=== PATIENT | female | born 1950 | race Caucasian/White ===

== ENCOUNTER → 2017-05-10 | Outpatient (CLI) | payer MEDICARE, OTHER ==
--- NOTE | 2017-05-10 23:40 | CONS ---
DATE OF SERVICE: 05/10/2017 This patient is a 66-year-old lady who has been evaluated in the sleep center for possible obstructive sleep apnea/hypopnea syndrome. HISTORY OF PRESENT ILLNESS/SLEEP-WAKE EVALUATION: The patient is retired. She does not have a regular sleep schedule, but she tries to go to bed at around 10 or 11. She sleeps until 10 or 11 a.m. Sometimes she has problems falling asleep. No TV in bedroom, although she snores, has witnessed episodes of gasping for air during the night and possible stopped breathing during sleep. She wakes up with a dry mouth and has nocturia more than 3 times per night. She feels significant sleepiness during the day. [place] Sleepiness Scale significantly increased to 17. Past medical history is positive for: 1. Hypertension. 2. Fibromyalgia. 3. Diabetes mellitus. 4. Hypothyroidism. 5. Hyperlipidemia. 6. COPD. 7. Balance problems. 8. ( ) malformation. PAST SURGICAL HISTORY: 1. Hysterectomy. 2. Cholecystectomy. 3. Bowel resection. 4. Nasal surgery. MEDICATIONS: 1. Insulin. 2. Lyrica. 3. Albuterol. 4. Pulmicort. 5. Some other medications; patient does not remember and did not bring her list of medications. She will provide that list to us. SOCIAL HISTORY: Positive for smoking a long time; quit 30 years ago. Alcohol consumption very rarely. REVIEW OF SYSTEMS: No fevers. No double vision. No recent chest pain. No abdominal pain. No bleeding episodes. No blood in urine. No seizure episodes. Difficulties initiating sleep. Multiple awakenings from sleep. Sleepiness and tiredness during the day. Pain all over the body. Balance problems. Episodes of swelling of the legs. Episodes of shortness of breath. FAMILY HISTORY: Hypertension, angina, heart problems, hyperlipidemia, epilepsy, stroke, arthritis, asthma, sinus ( ) weakness, bronchitis, lung problems, sleep apnea, snoring, headaches, insomnia, diabetes, ulcers, acid reflux, nasal polyps, thyroid problems, anemia, restless legs. PHYSICAL EXAM: The patient is a pleasant 66-year-old lady without distress. She walks with a walker secondary to balance problems. VITAL SIGNS: Blood pressure 142/75, heart rate 78, respiratory rate 18. Height 61. Weight 232. BMI 43.8. Neck 13-1/2 inches in circumference. Temperature 98.1. Oxygen saturation at room air 94%. GENERAL: A pleasant patient without distress. HEENT: PERRLA. EOMI. Evaluation of oropharynx showed tongue protrudes midline. Extremely low position of soft palate. Mallampati IV. Extreme restriction of nasal breathing bilaterally. NECK: Supple. No JVD. Thyroid is not palpable. LUNGS: Clear to percussion and to auscultation. Good air exchange. No wheezing or rhonchi. HEART: S1, S2 regular. No murmurs, gallops or rubs. ABDOMEN: Obese. EXTREMITIES: No clubbing or cyanosis. TEMPERER: Awake, alert and oriented x3. Cranial nerves 2 through 7 are intact. There is no fasciculation or atrophy noted. No focal deficits observed. IMPRESSION: 1. Snoring, awakenings from sleep with gasping for air, extremely low position of soft palate, significant sleepiness, [place] Sleepiness Scale increased to 17 , obesity; obstructive sleep apnea/hypopnea syndrome. 2. Obesity. BMI 43.8. 3. Diabetes mellitus. 4. Fibromyalgia. 5. Hypertension. 6. Hypothyroidism. 7. Hyperlipidemia. 8. Chronic obstructive pulmonary disease. 9. Significant restriction of nasal breathing, status post nasal surgery. 10. Status post hysterectomy. 11. Status post cholecystectomy. 12. Status post bowel resection in teenage years. 13. Balance problems. 14. History of ( ) malformation. PLAN: 1. Polysomnography for evaluation of patients breathing during sleep. 2. CPAP/BiPAP titration if sleep study confirms obstructive sleep apnea/ hypopnea syndrome. 3. Preferable position during sleep on the side. 4. No driving if feeling any sleepiness. Patient is aware of civil and criminal liability for unsafe driving. 5. I will see this patient for follow-up visit to explain results of the testing and follow-up plan. Thank you very much for referring this patient for consultation. Sincerely, Jerry Quintana. , PhD, FAASM. Diplomat of [place] Board of Sleep Medicine, Sleep Medicine Board by [place] [employer]ities [place] [employer] Proof Clerk of [facility] [place] [facility]
== END ==
LOC: SLEEP 11:36
PROVIDERS: ATTEND Internal Medicine
DX: G47.33 Obstructive sleep apnea (adult) (pediatric) (principal); E11.9 Type 2 diabetes mellitus without complications; I10 Essential (primary) hypertension; E66.9 Obesity, unspecified; M79.1 Myalgia; E03.9 Hypothyroidism, unspecified; E78.5 Hyperlipidemia, unspecified; J44.9 Chronic obstructive pulmonary disease, unspecified; Z90.710 Acquired absence of both cervix and uterus; Z90.49 Acquired absence of other specified parts of digestive tract; Z98.890 Other specified postprocedural states; Z79.4 Long term (current) use of insulin; Z79.899 Other long term (current) drug therapy
CPT/HCPCS: 99211

== ENCOUNTER 2018-03-07 08:59 | Day surgery (SDC) | payer MEDICARE, OTHER ==
[2018-03-06 09:16] VITALS: BMI 41.0
[~2018-03-07 08:59] MED LIST: LACTATED RINGERS 1,000 ML IV SCH
[2018-03-07 09:40] VITALS: RESP 16; TEMP 97
[2018-03-07 09:52] LABS: Glucose,Whole Blood 172 mg/dL (75-99)
[2018-03-07] MEDS ORDERED: LIDOCAINE 1% 20 ML VIAL (10MG/ML) FOR IV START INTRADERMA ONE (09:52)
[2018-03-07] MEDS ORDERED: MIDAZOLAM 2 MG/2 ML VIAL ONE (10:05)
[2018-03-07] MEDS ORDERED: PROPOFOL 10 MG/ML 20 ML VIAL IV ONE (10:05)
[2018-03-07] MEDS ORDERED: fentaNYL (PF) 50 MCG/ML 2 ML AMP ONE (10:05)
--- NOTE | 2018-03-07 10:22 | P.PCN ---
Date of Procedure: 03/07/18 Procedure(s) Performed: BRIEF HISTORY: Patient is a 67-year-old pleasant white female, scheduled for an elective colonoscopy as a part of evaluation of abdominal pain and change in bowel habits for the last few months duration. PROCEDURE PERFORMED: Colonoscopy. PREOPERATIVE DIAGNOSIS: Abdominal pain/change in bowel habits. IV sedation per Anesthesia. PROCEDURE: After informed consent was obtained, the patient, was brought into the endoscopy unit. IV sedation was administered by Anesthesia under continuous monitoring. Digital rectal examination was normal. Initially the Olympus CF- 160 flexible video colonoscope was then inserted in the rectum, gradually advanced into the cecum without any difficulty. Careful examination was performed as the scope was gradually being withdrawn. Ileocecal valve and the appendiceal orifice were visualized and appeared normal. Prep was excellent. Mucosa of the cecum, ascending colon, transverse colon, descending colon, sigmoid colon, and rectum appeared normal. Scattered sigmoid diverticula seen. Retroflexion was performed in the rectum and small internal hemorrhoids were seen. The patient tolerated the procedure well. IMPRESSION: Normal-appearing colon from rectum to cecum with no evidence of colorectal neoplasia. Scattered sigmoid diverticulosis. RECOMMENDATIONS: Findings of this examination were discussed with the patient as well as a family. She was advised to have a repeat screening colonoscopy in 10 years.
[2018-03-07 10:56] LABS: Glucose,Whole Blood 145 mg/dL (75-99)
[2018-03-07 11:45] VITALS: BP 131/72; PULSE 73
[2018-03-07 11:46] LABS: Glucose,Whole Blood 160 mg/dL (75-99)
== END 2018-03-07 12:24 | disposition home or self-care (01) ==
LOC: ORWHC2ENDO 08:59
PROVIDERS: ATTEND Internal Medicine Gastroenterology
DX: K57.30 Diverticulosis of large intestine without perforation or abscess without bleeding (principal); K64.8 Other hemorrhoids; J44.9 Chronic obstructive pulmonary disease, unspecified; I10 Essential (primary) hypertension; E11.9 Type 2 diabetes mellitus without complications; Z79.4 Long term (current) use of insulin; Z79.899 Other long term (current) drug therapy; Z79.1 Long term (current) use of non-steroidal anti-inflammatories (NSAID); Z88.8 Allergy status to other drugs, medicaments and biological substances
CPT/HCPCS: 45378; J2250; J3010; J2704

== ENCOUNTER 2018-04-20 21:38 | Emergency (ER) | payer MEDICARE, OTHER ==
[2018-04-20 21:54] VITALS: BP 146/93; PULSE 76; RESP 18; TEMP 98.9
[2018-04-20] MEDS ORDERED: PROPARACAINE 0.5% OPHTH DROPS 15 ML BTL LEFT EYE STA (22:08)
[2018-04-20] MEDS ORDERED: PROPARACAINE 0.5% OPHTH DROPS 15 ML BTL ONE (22:09)
--- NOTE | 2018-04-20 22:16 | ED ---
General Adult HPI - General Chief complaint: Eye Problems Stated complaint: right eye pain Time Seen by Provider: 04/20/18 21:50 Source: patient, RN notes reviewed Mode of arrival: ambulatory Limitations: no limitations - History of Present Illness Initial comments: This is a 67-year-old female presents emergency Department complaining of blood around her pupil. Patient states it started this morning and she felt as though she needed to rub her eyes she continues to rub it but she doesn't have any pain in her eye she has no visual loss in her eye. Patient denies any drainage from the eye. Patient states she woke up and felt a slight foreign body sensation and noticed all the blood in the sub-conjunctiva region. Patient denies any other symptoms at this time she denies any upper respiratory symptoms. Patient denies being on any blood thinners. Patient denies any similar symptoms. - Related Data Home Medications Medication Instructions Recorded Confirmed Butalb/Acetaminophen/Caffeine 2 tab PO Q4H PRN 03/06/18 04/20/18 [Fioricet 50-325-40] Cevimeline [Evoxac] 30 mg PO TID 03/06/18 04/20/18 DULoxetine HCL [Cymbalta] 60 mg PO BID 03/06/18 04/20/18 HYDROcodone/APAP 10-325MG [[place] 1 each PO BID PRN 03/06/18 04/20/18 10-325] Insulin Lispro Protamin/Lispro 18 units INJ BID 03/06/18 04/20/18 [humaLOG Mix 75-25 Kwikpen] Lansoprazole [Prevacid] 30 mg PO PC-LUNCH 03/06/18 04/20/18 Levothyroxine Sodium [Synthroid] 75 mcg PO DAILY 03/06/18 04/20/18 Meloxicam [Mobic] 7.5 mg PO DAILY 03/06/18 04/20/18 Metaxalone [Skelaxin] 800 mg PO TID 03/06/18 04/20/18 Montelukast [Singulair] 10 mg PO HS 03/06/18 04/20/18 Pravastatin Sodium [Pravachol] 80 mg PO HS 03/06/18 04/20/18 amLODIPine [Norvasc] 5 mg PO BID 03/06/18 04/20/18 Allergies Allergy/AdvReac Type Severity Reaction Status Date / Time prochlorperazine Allergy Itching Verified 04/20/18 21:54 [From Compazine] Review of Systems ROS Statement: Those systems with pertinent positive or pertinent negative responses have been documented in the HPI. ROS Other: All systems not noted in ROS Statement are negative. 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 SINUS SX Past Anesthesia/Blood Transfusion Reactions: Motion Sickness, Postoperative Nausea & Vomiting (PONV) Past Psychological History: Anxiety, Depression Smoking Status: Former smoker - Past Family History Mother History Unknown: Yes Family Medical History: Cancer General Exam - General Exam Comments Initial Comments: GENERAL Patient is well-developed and well-nourished. Patient is in mild distress. EYES Patient's pupils are equal and round. Extraocular motion is intact. Patient has a moderate amount of subconjunctival hemorrhage. I used Fluorescein and Wood's lamp patient had no abrasions SKIN Unremarkable NEURO The patient is alert and oriented 3 PYSCH Patient has normal interpersonal interactions. MUSCULOSKELETAL All 4 times and full range of motion Limitations: no limitations Course Vital Signs 04/20/18 21:50 Temperature 98.9 F Pulse Rate 76 Respiratory 18 Rate Blood Pressure 146/93 O2 Sat by Pulse 97 Oximetry Disposition Clinical Impression: Subconjunctival hemorrhage of left eye Disposition: HOME SELF-CARE Condition: Good Instructions: Subconjunctival Hemorrhage (ED) Is patient prescribed a controlled substance at d/c from ED?: No Referrals: Jessica Castillo MD [Primary Care Provider] - 1-2 days Time of Disposition: 22:16
== END 2018-04-20 22:22 | disposition home or self-care (01) ==
LOC: EC 21:38
DX: H11.32 Conjunctival hemorrhage, left eye (principal); E11.9 Type 2 diabetes mellitus without complications; K21.9 Gastro-esophageal reflux disease without esophagitis; E78.5 Hyperlipidemia, unspecified; I10 Essential (primary) hypertension; E07.9 Disorder of thyroid, unspecified; M35.00 Sjogren syndrome, unspecified; F32.9 Major depressive disorder, single episode, unspecified; F41.9 Anxiety disorder, unspecified; Z88.8 Allergy status to other drugs, medicaments and biological substances; Z79.4 Long term (current) use of insulin; Z79.899 Other long term (current) drug therapy; Z87.891 Personal history of nicotine dependence
CPT/HCPCS: 99283

== ENCOUNTER 2018-09-25 18:06 | Inpatient (IN) | payer MEDICARE, OTHER ==
[2018-09-25] MEDS ORDERED: SODIUM CHLORIDE 0.9% 500 ML 500 ML IV STA (18:35)
--- NOTE | 2018-09-25 18:55 | ED ---
Fall HPI - General Source: patient, EMS, RN notes reviewed Mode of arrival: EMS Limitations: no limitations <Richard Werner - Last Filed: 09/25/18 18:53> <Berenice Dean - Last Filed: 09/25/18 22:09> - General Chief Complaint: Fall Stated Complaint: Fall Time Seen by Provider: 09/25/18 18:12 - History of Present Illness Initial Comments: This a 68-year-old female presents emergency department via EMS chief complaint of a fall. She states that she mars been on the toilet does not remember how she fell after that. She states that she may have tripped. She's had multiple of these episodes lately. Patient complains of right-sided head, neck pain. Patient states she also has some pain in the right side of her body. Patient denies any current chest pain, shortness breath, nausea, vomiting, diarrhea, constipation, dysuria or hematuria. Patient has no blurred vision no focal weakness. (Richard Werner) - Related Data Home Medications Medication Instructions Recorded Confirmed Butalb/Acetaminophen/Caffeine 2 tab PO Q4H PRN 03/06/18 09/25/18 [Fioricet 50-325-40] Cevimeline [Evoxac] 30 mg PO TID 03/06/18 09/25/18 DULoxetine HCL [Cymbalta] 60 mg PO BID 03/06/18 09/25/18 HYDROcodone/APAP 10-325MG [[place] 1 each PO BID PRN 03/06/18 09/25/18 10-325] Insulin Lispro Protamin/Lispro 18 units INJ BID 03/06/18 09/25/18 [humaLOG Mix 75-25 Kwikpen] Lansoprazole [Prevacid] 30 mg PO PC-LUNCH 03/06/18 09/25/18 Levothyroxine Sodium [Synthroid] 75 mcg PO DAILY 03/06/18 09/25/18 Meloxicam [Mobic] 7.5 mg PO DAILY 03/06/18 09/25/18 Metaxalone [Skelaxin] 800 mg PO TID 03/06/18 09/25/18 Montelukast [Singulair] 10 mg PO HS 03/06/18 09/25/18 Pravastatin Sodium [Pravachol] 80 mg PO HS 03/06/18 09/25/18 amLODIPine [Norvasc] 5 mg PO BID 03/06/18 09/25/18 Doxepin [SINEquan] 10 mg PO HS 09/25/18 09/25/18 Fluticasone Nasal [place] [Flonase 1 spray EA NOSTRIL BID 09/25/18 09/25/18 Nasal [place]] Naldemedine Tosylate [Symproic] 0.2 mg PO DAILY 09/25/18 09/25/18 Pregabalin [Lyrica] 225 mg PO DAILY 09/25/18 09/25/18 Sennosides-Docusate Sodium 2 tab PO DAILY 09/25/18 09/25/18 [Senokot-S] Allergies Allergy/AdvReac Type Severity Reaction Status Date / Time prochlorperazine Allergy Itching Verified 09/25/18 18:18 [From Compazine] Sulfa (Sulfonamide Allergy Unknown Verified 09/25/18 18:32 Antibiotics) codeine AdvReac Unknown Verified 09/25/18 18:32 Review of Systems ROS Other: All systems not noted in ROS Statement are negative. <Richard Werner - Last Filed: 09/25/18 18:53> ROS Other: All systems not noted in ROS Statement are negative. <Berenice Dean - Last Filed: 09/25/18 22:09> ROS Statement: Those systems with pertinent positive or pertinent negative responses have been documented in the HPI. 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 SINUS SX Past Anesthesia/Blood Transfusion Reactions: Motion Sickness, Postoperative Nausea & Vomiting (PONV) Past Psychological History: Anxiety, Depression Smoking Status: Former smoker - Past Family History Mother History Unknown: Yes Family Medical History: Cancer <Richard Werner - Last Filed: 09/25/18 18:53> General Exam Limitations: no limitations General appearance: alert, in no apparent distress Head exam: Present: atraumatic, normocephalic, normal inspection Eye exam: Present: normal appearance, PERRL, EOMI. Absent: scleral icterus, conjunctival injection, periorbital swelling ENT exam: Present: normal exam, normal oropharynx, mucous membranes moist, TM's normal bilaterally Neck exam: Present: normal inspection, tenderness. Absent: meningismus, full ROM (Patient c-collar), lymphadenopathy Respiratory exam: Present: normal lung sounds bilaterally. Absent: respiratory distress, wheezes, rales, rhonchi, stridor Cardiovascular Exam: Present: regular rate, normal rhythm, normal heart sounds. Absent: systolic murmur, diastolic murmur, rubs, gallop, clicks GI/Abdominal exam: Present: soft, normal bowel sounds. Absent: distended, tenderness, guarding, rebound, rigid Back exam: Present: normal inspection, full ROM, tenderness, paraspinal tenderness. Absent: vertebral tenderness Neurological exam: Present: alert, oriented X3, CN II-XII intact, reflexes normal, other (Finger to nose intact bilaterally, GCS 15). Absent: motor sensory deficit Skin exam: Present: warm, dry, intact, normal color. Absent: rash <Richard Werner - Last Filed: 09/25/18 18:53> <Berenice Dean - Last Filed: 09/25/18 22:09> - General Exam Comments Initial Comments: Patient is a 68-year-old female. She appears weak. Required assistance to bedside commode. (Berenice Dean) Vital Signs 09/25/18 09/25/18 09/25/18 18:11 20:00 21:21 Temperature 97.8 F 97.8 F Pulse Rate 66 66 Respiratory 16 16 Rate Blood Pressure 154/80 154/80 154/107 O2 Sat by Pulse 97 Oximetry Medical Decision Making <Richard Werner - Last Filed: 09/25/18 18:53> - Lab Data Result diagrams: 09/25/18 19:33 09/25/18 19:33 - Radiology Data Radiology results: report reviewed <Berenice Dean - Last Filed: 09/25/18 22:09> - Medical Decision Making I received this Patient is a sign out. 68-year-old female presents emergency department today with chief complaint of fall coming hit her head or neck.. Patient reports he is had multiple falls. Patient has brain and C-spine were cleared negative for any acute process. She complains of just total body aches. Patient Chest x-ray does show evidence of bright lower lobe pneumonia. Patient was started on Rocephin and azithromycin. At this time Patient due to frequent falls, evidence of pneumonia we will admit the Patient. Dr. Valenzuela discussed the case with Dr. Castillo. ([facility]) - Lab Data Lab Results 09/25/18 09/25/18 09/25/18 Range/Units 19:00 19:33 19:33 WBC 7.6 (3.8-10.6) k/uL RBC 4.45 (3.80-5.40) m/uL Hgb 13.0 (11.4-16.0) gm/dL Hct 41.8 (34.0-46.0) % MCV 93.9 (80.0-100.0) fL MCH 29.1 (25.0-35.0) pg MCHC 31.0 (31.0-37.0) g/dL RDW 13.4 (11.5-15.5) % Plt Count 200 (150-450) k/uL Neutrophils % 59 % Lymphocytes % 27 % Monocytes % 6 % Eosinophils % 4 % Basophils % 1 % Neutrophils # 4.5 (1.3-7.7) k/uL Lymphocytes # 2.1 (1.0-4.8) k/uL Monocytes # 0.4 (0-1.0) k/uL Eosinophils # 0.3 (0-0.7) k/uL Basophils # 0.1 (0-0.2) k/uL PT (9.0-12.0) sec INR (<1.2) APTT (22.0-30.0) sec Sodium 139 (137-145) mmol/L Potassium 4.5 (3.5-5.1) mmol/L Chloride 107 (98-107) mmol/L Carbon Dioxide 26 (22-30) mmol/L Anion Gap 6 mmol/L BUN 18 H (7-17) mg/dL Creatinine 0.63 (0.52-1.04) mg/dL Est GFR (CKD-EPI)AfAm >90 (>60 ml/min/1.73 sqM) Est GFR (CKD-EPI)NonAf >90 (>60 ml/min/1.73 sqM) Glucose 179 H (74-99) mg/dL Calcium 9.2 (8.4-10.2) mg/dL Total Bilirubin 0.3 (0.2-1.3) mg/dL AST 29 (14-36) U/L ALT 31 (9-52) U/L Alkaline Phosphatase 90 (38-126) U/L Troponin I (0.000-0.034) ng/mL Total Protein 6.8 (6.3-8.2) g/dL Albumin 4.2 (3.5-5.0) g/dL Urine Color Light Yellow Urine Appearance Clear (Clear) Urine pH 6.5 (5.0-8.0) Ur Specific [place] 1.007 (1.001-1.035) Urine Protein Negative (Negative) Urine Glucose (UA) Negative (Negative) Urine Ketones Negative (Negative) Urine Blood Negative (Negative) Urine Nitrite Negative (Negative) Urine Bilirubin Negative (Negative) Urine Urobilinogen <2.0 (<2.0) mg/dL Ur Leukocyte Esterase Negative (Negative) 09/25/18 09/25/18 Range/Units 19:33 19:33 WBC (3.8-10.6) k/uL RBC (3.80-5.40) m/uL Hgb (11.4-16.0) gm/dL Hct (34.0-46.0) % MCV (80.0-100.0) fL MCH (25.0-35.0) pg MCHC (31.0-37.0) g/dL RDW (11.5-15.5) % Plt Count (150-450) k/uL Neutrophils % % Lymphocytes % % Monocytes % % Eosinophils % % Basophils % % Neutrophils # (1.3-7.7) k/uL Lymphocytes # (1.0-4.8) k/uL Monocytes # (0-1.0) k/uL Eosinophils # (0-0.7) k/uL Basophils # (0-0.2) k/uL PT 10.2 (9.0-12.0) sec INR 1.0 (<1.2) APTT 22.7 (22.0-30.0) sec Sodium (137-145) mmol/L Potassium (3.5-5.1) mmol/L Chloride (98-107) mmol/L Carbon Dioxide (22-30) mmol/L Anion Gap mmol/L BUN (7-17) mg/dL Creatinine (0.52-1.04) mg/dL Est GFR (CKD-EPI)AfAm (>60 ml/min/1.73 sqM) Est GFR (CKD-EPI)NonAf (>60 ml/min/1.73 sqM) Glucose (74-99) mg/dL Calcium (8.4-10.2) mg/dL Total Bilirubin (0.2-1.3) mg/dL AST (14-36) U/L ALT (9-52) U/L Alkaline Phosphatase (38-126) U/L Troponin I <0.012 (0.000-0.034) ng/mL Total Protein (6.3-8.2) g/dL Albumin (3.5-5.0) g/dL Urine Color Urine Appearance (Clear) Urine pH (5.0-8.0) Ur Specific [place] (1.001-1.035) Urine Protein (Negative) Urine Glucose (UA) (Negative) Urine Ketones (Negative) Urine Blood (Negative) Urine Nitrite (Negative) Urine Bilirubin (Negative) Urine Urobilinogen (<2.0) mg/dL Ur Leukocyte Esterase (Negative) - Radiology Data Interpreted by me: CT shows cervical atrophy, chronic small vessel ischemia, no acute intracranial normality. Negative CT of the cervical spine. No fracture. Chest x-ray shows probably right lower lobe pneumonia. Normal pelvis x-ray (Berenice Dean) Disposition <Richard Werner - Last Filed: 09/25/18 18:53> Is patient prescribed a controlled substance at d/c from ED?: No Time of Disposition: 22:09 <Berenice Dean - Last Filed: 09/25/18 22:09> Clinical Impression: Pneumonia, Frequent falls, Weakness Disposition: ADMITTED IP TO THIS HOSP Condition: Stable Referrals: Jessica Castillo MD [Primary Care Provider] - 1-2 days
[2018-09-25 19:47] LABS: Basophils # (A) 0.1 k/uL (0-0.2); Basophils % (A) 1 %; Eosinophils # (A) 0.3 k/uL (0-0.7); Eosinophils % (A) 4 %; HCT 41.8 % (34.0-46.0); Lymphocytes # (A) 2.1 k/uL (1.0-4.8); Lymphocytes % (A) 27 %; MCH 29.1 pg (25.0-35.0); MCV 93.9 fL (80.0-100.0); Mean Platelet Volume 8.5; Monocytes # (A) 0.4 k/uL (0-1.0); Monocytes % (A) 6 %; Neutrophils # (A) 4.5 k/uL (1.3-7.7); Neutrophils % (A) 59 %; Platelet Count 200 k/uL (150-450); RBC 4.45 m/uL (3.80-5.40); RDW 13.4 % (11.5-15.5); WBC 7.6 k/uL (3.8-10.6)
[2018-09-25 19:51] LABS: ALT 31 U/L (9-52); AST 29 U/L (14-36); Albumin 4.2 g/dL (3.5-5.0); Alkaline Phosphatase 90 U/L (38-126); Anion Gap 6 mmol/L; Blood Urea Nitrogen 18 mg/dL (7-17); Calcium 9.2 mg/dL (8.4-10.2); Carbon Dioxide 26 mmol/L (22-30); Chloride 107 mmol/L (98-107); Glucose 179 mg/dL (74-99); Potassium 4.5 mmol/L (3.5-5.1); Sodium 139 mmol/L (137-145); Total Bilirubin 0.3 mg/dL (0.2-1.3); Total Protein 6.8 g/dL (6.3-8.2)
--- NOTE | 2018-09-25 19:57 | CT ---
EXAMINATION TYPE: CT brain sofia suárez DATE OF EXAM: 09/25/2018 COMPARISON: None HISTORY: fall headache. Neck pain CT DLP: 1291.8 mGycm Automated exposure control for dose reduction was used. TECHNIQUE: CT scan of the head and cervical spine are performed without contrast. FINDINGS: There is mild cerebral cortical atrophy. There is mild hypodensity in the periventricular white matter. There is no mass effect nor midline shift. There is no sign of intracranial hemorrhage . The calvarium is intact. Cervical vertebra have normal spacing and alignment. Posterior elements are intact. The skull base is intact. Facet joints are intact. I see no bony destructive process. IMPRESSION: Cerebral atrophy. Chronic small vessel ischemia. No acute intracranial abnormality. Negative CT scan of the cervical spine. No fracture.
[2018-09-25 20:27] LABS: Partial Thromboplastin Time 22.7 sec (22.0-30.0); Prothrombin Time 10.2 sec (9.0-12.0)
--- NOTE | 2018-09-25 20:53 | XR ---
EXAMINATION TYPE: XR chest 2V DATE OF EXAM: 09/25/2018 COMPARISON: NONE HISTORY: Syncope TECHNIQUE: Frontal and lateral views of the chest are obtained. FINDINGS: There is increased density behind the heart on the lateral view that is consistent with pn eumonia that is probably in the right lower lobe superior segment. The other lung mckeon are clear. T here is no heart failure. There is no pleural effusion. Bony thorax is intact. IMPRESSION: There is probably right lower lobe pneumonia.
--- NOTE | 2018-09-25 20:59 | XR ---
EXAMINATION TYPE: XR pelvis AP view DATE OF EXAM: 09/25/2018 COMPARISON: NONE HISTORY: Pain after falling TECHNIQUE: Single view FINDINGS: Pelvic ring is intact. Proximal femurs and hip joints are intact. Sacroiliac joints appear normal. There is no evidence of a fracture. IMPRESSION: Normal pelvis
[2018-09-25 21:24] LABS: Appearance,Urine Clear (Clear); Bilirubin,Urine Negative (Negative); Blood,Urine Negative (Negative); Color,Urine Light Yellow; Glucose,Urine (UA) Negative (Negative); Ketones,Urine Negative (Negative); Leukocyte Esterase,Urine Negative (Negative); Nitrite,Urine Negative (Negative); PH, Urine 6.5 (5.0-8.0); Protein,Urine Negative (Negative); Specific Gravity,Urine 1.007 (1.001-1.035); Urobilinogen,Urine <2.0 mg/dL (<2.0)
[2018-09-25] MEDS ORDERED: AZITHROMYCIN 500 MG TAB PO STA (21:38)
[2018-09-25] MEDS ORDERED: SODIUM CHLORIDE 0.9% 1,000 ML IV ONE (21:38)
[2018-09-25] MEDS ORDERED: IBUPROFEN 600 MG TAB PO STA (22:11)
[2018-09-25] MEDS ORDERED: ACETAMINOPHEN TAB 500 MG TAB PO STA (22:11)
[2018-09-25] MEDS ORDERED: PNEUMONIA PROTOCOL UTILIZED 1 EACH MISC PO PRN (22:13)
[2018-09-25] MEDS: SODIUM CHLORIDE 0.9% 1,000 ML IV SCH (22:57)
[2018-09-26] MEDS ORDERED: amLODIPine 5 MG TAB PO STA (01:14)
[2018-09-26] MEDS: HYDROcodone/APAP 10-325MG 1 EACH TAB PO PRN (01:43)
[2018-09-26 07:28] LABS: Glucose,Whole Blood 144 mg/dL (75-99)
[2018-09-26] MEDS: INSULN ASP PRT/INSULIN ASPART 100 UNIT/ML 10 ML VIAL SQ SCH ×2 (08:17→20:48)
[2018-09-26] MEDS: amLODIPine 5 MG TAB PO SCH ×2 (08:18→20:44)
[2018-09-26] MEDS: NALDEMEDINE TOSYLATE 0.2 MG PO SCH (08:18)
[2018-09-26] MEDS: MELOXICAM 7.5 MG TAB PO SCH (08:18)
[2018-09-26] MEDS: CEVIMELINE 30 MG CAP PO SCH ×3 (08:18→20:48)
[2018-09-26] MEDS: SENNOSIDES-DOCUSATE SODIUM 1 EACH TAB PO SCH (08:18)
[2018-09-26] MEDS: DULoxetine HCL 60 MG CAPSULE.DR PO SCH ×2 (08:19→20:45)
[2018-09-26] MEDS: SODIUM CHLORIDE 0.9% 1,000 ML IV SCH ×2 (08:19→17:08)
[2018-09-26] MEDS: FLUTICASONE 50MCG/SPRAY NASAL 16GM EA NOSTRIL SCH ×2 (08:21→20:45)
[2018-09-26] MEDS ORDERED: CYCLOBENZAPRINE 10 MG TAB PO PRN (09:00)
[2018-09-26] MEDS ORDERED: PREGABALIN 75 MG CAP PO SCH (09:00)
--- NOTE | 2018-09-26 09:11 | XR ---
EXAMINATION TYPE: XR chest 2V DATE OF EXAM: 09/26/2018 COMPARISON: 09/25/2018 HISTORY: Shortness of breath TECHNIQUE: Frontal and lateral views of the chest are obtained. FINDINGS: Scattered senescent parenchymal changes noted. Hyperinflation compatible with COPD. No evidence for infiltrate. No evidence for atelectasis. Heart size is stable. Mediastinal structures are stable and grossly unremarkable. No evidence for hilar prominence. Degenerative changes dorsal spine. IMPRESSION: 1. No evidence for acute pulmonary disease.
[2018-09-26] MEDS: BUTALB/APAP/CAFF 50-325-40MG TAB PO PRN ×2 (09:31→16:14)
[2018-09-26] MEDS ORDERED: CYCLOBENZAPRINE 5 MG TAB PO PRN (11:35)
[2018-09-26 11:53] LABS: Glucose,Whole Blood 137 mg/dL (75-99)
[2018-09-26] MEDS: PANTOPRAZOLE 40 MG TABLET PO SCH (14:52)
[2018-09-26 16:47] LABS: Glucose,Whole Blood 254 mg/dL (75-99)
[2018-09-26] MEDS: ENOXAPARIN 40 MG/0.4 ML SYRINGE SQ SCH (18:09)
--- NOTE | 2018-09-26 18:13 | P.HPIM ---
History of Present Illness H&P Date: 09/26/18 Chief Complaint: Weakness, falls, cough, clinical pneumonia on exam This is a 68-year-old pleasant female known to my practice, known history of diabetes mellitus type 2, fibromyalgia pain, chronic pain, asthma, number impairment, hypothyroidism, Sjogren's, migraines, admitted to the emergency room secondary to weakness. Patient also has cough, and sweats, chills, constipation, has been forgetting more, patient has some low-grade fever, and had fallen down while walking over to the bathroom. Patient tripped over a garbage that is in the bedroom, and patient is blaming the for all the difficulties in her life. She also relies on the to provide medications for her to be compliant as she does forget a lot specially possibly duplicating her medications. She is on narcotics twice a day, [place]. 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 She also has some cough, nonproductive. This of breath or shortness of breath and exertion, no aspirated events, no nausea no vomiting or diarrhea patient significantly constipated In emergency room chest x-ray that was done from 9 reading shows right lower lobe pneumonia started on Rocephin and Zithromax apical spine x-rays secondary to trauma failed to reveal any acute dislocation, EKG shows normal sinus rhythm first degree AV block, incomplete bundle branch block, Q waves inferior leads we 're requesting an MRI of the cervical spine to evaluate for cervical myelopathy , secondary to progressive deterioration of what is suspected cervical myelopathy to be aggravated by pneumonia. Influenza test negative, lactic acid level I.0. Patient is treated for community-acquired pneumonia, with consults to physical therapy occupational therapy Review of Systems Constitutional: Reports as per HPI, Reports chills, Reports chronic pain, Reports fatigue, Reports fever, Reports lethargy, Reports malaise, Reports sweats, Denies anorexia, Denies chronic headaches, Denies daytime sleepiness, Denies night sweats, Denies poor appetite, Denies weakness, Denies weight gain, Denies weight loss Ears, nose, mouth and throat: Reports as per HPI, Reports ant. neck pain, Denies bleeding gums, Denies dental pain, Denies dysphagia, Denies epistaxis, Denies headache, Denies hoarseness, Denies mouth pain, Denies nasal congestion, Denies nasal discharge, Denies neck fullness/pressure, Denies neck lump, Denies nose pain, Denies odynophagia, Denies post-nasal drip, Denies sinus pain, Denies sinus pressure, Denies swelling in mouth, Denies swelling in throat, Denies sore throat, Denies vertigo, Denies voice changes Cardiovascular: Reports as per HPI, Reports decreased exercise tolerance, Reports dyspnea on exertion, Reports shortness of breath, Denies chest pain, Denies claudication, Denies edema, Denies high blood pressure, Denies irregular heart beat, Denies leg edema, Denies lightheadedness, Denies orthopnea, Denies palpitations, Denies paroxysmal nocturnal dyspnea, Denies phlebitis, Denies rapid heart beat, Denies syncope Respiratory: Reports as per HPI, Reports cough, Denies congestion, Denies cough with sputum, Denies dyspnea, Denies excessive sputum, Denies hemoptysis, Denies home oxygen, Denies pain, Denies pain on inspiration, Denies pleurisy, Denies respiratory infections, Denies sleep apnea, Denies snoring, Denies wheezing Gastrointestinal: Reports as per HPI, Denies abdominal pain, Denies belching, Denies bloating, Denies BRBPR, Denies change in bowel habits, Denies coffee ground emesis, Denies constipation, Denies diarrhea, Denies dyspepsia, Denies early satiety, Denies excessive gas, Denies heartburn, Denies hematemesis, Denies hematochezia, Denies indigestion, Denies jaundice, Denies lactose intolerance, Denies loss of appetite, Denies melena, Denies nausea, Denies vomiting Genitourinary: Reports as per HPI, Denies abnormal vaginal bleeding, Denies decreased libido, Denies difficulty conceiving, Denies difficulty voiding, Denies dysmenorrhea, Denies dyspareunia, Denies dysuria, Denies flank pain, Denies genital sores, Denies hematuria, Denies hot flashes, Denies incomplete emptying, Denies kidney stones, Denies menorrhagia, Denies mixed incontinence, Denies nocturia, Denies pelvic pain, Denies post void dribbling, Denies , Denies prolapse symptoms, Denies stress incontinence, Denies urge incontinence , Denies urgency, Denies urinary frequency, Denies vaginal discharge, Denies vaginal dryness, Denies vaginal itching, Denies vaginal odor Menstruation: Reports as per HPI, Denies amenorrhea, Denies amenorrhea on BC, Denies currently menstrual, Denies cycle < 21 days, Denies cycle > 35 days, Denies cycle variable, Denies menses 1-7 days, Denies menses 8 or > days, Denies menses variable, Denies period heavy, Denies period light, Denies period normal, Denies period spotting, Denies post hysterectomy, Denies postmenopausal , Denies premenarcheal Musculoskeletal: Reports as per HPI, Reports arm numbness/tingling, Reports frequent falls, Reports gait dysfunction, Reports leg numbness/tingling, Reports limitation of motion, Reports muscle weakness, Denies atrophy, Denies fractures, Denies hot joints, Denies loss of height, Denies low back pain, Denies morning stiffness, Denies muscle cramps, Denies myalgias, Denies neck pain, Denies neck stiffness, Denies prior amputations, Denies redness of joints , Denies shooting arm pain, Denies shooting leg pain Integumentary: Reports as per HPI, Denies acne, Denies boils, Denies brittle nails, Denies change in hair/nails, Denies color changes, Denies darkening of skin, Denies depigmentation, Denies dryness, Denies foot/leg ulcers, Denies growths, Denies hirsutism, Denies lesions, Denies onychomycosis, Denies pruritus , Denies rash, Denies sores, Denies striae, Denies unusual bruising, Denies wounds Neurological: Reports as per HPI, Denies aphasia, Denies ataxia, Denies balance difficulties, Denies burning pain, Denies change in mentation, Denies change in smell/taste, Denies change in speech, Denies confusion, Denies convulsions, Denies double vision, Denies gait dysfunction, Denies head injury, Denies headaches, Denies hearing difficulties, Denies lack of coordination, Denies loss of vision, Denies memory loss, Denies migraines, Denies motor disturbance, Denies numbness, Denies paralysis, Denies paresthesias, Denies seizures, Denies sensory deficit, Denies spasticity, Denies syncope, Denies tic, Denies tingling , Denies transient paralysis, Denies tremors, Denies vertigo, Denies weakness, Denies visual changes Psychiatric: Reports as per HPI, Reports change in sleep habits, Reports depression, Reports difficulty concentrating, Reports irritability, Reports memory loss, Reports sadness/tearfulness, Reports sleep disturbances Endocrine: Reports as per HPI, Denies cold intolerance, Denies deepening of the voice, Denies excessive sweating, Denies excessive thirst, Denies fatigue, Denies flushing, Denies heat intolerance, Denies high blood sugars, Denies increase in ring/shoe/hat size, Denies low blood sugars, Denies nocturia, Denies palpitations, Denies polydipsia, Denies polyphagia, Denies polyuria, Denies proptosis, Denies recent glucocorticoid use, Denies thyroid mass, Denies weight change Hematologic/Lymphatic: Reports as per HPI, Denies easy bleeding, Denies easy bruising, Denies lymphadenopathy, Denies lymphedema, Denies thrombophilia Allergic/Immunologic: Reports as per HPI, Denies allergic rhinitis, Denies anaphylaxis, Denies angioedema, Denies gluten intolerance, Denies persistent infections, Denies seasonal allergies, Denies urticaria, Denies wheezing Past Medical History Past Medical History: Asthma, Diabetes Mellitus, GERD/Reflux, Hyperlipidemia, Hypertension, Memory Impairment, Neurologic Disorder, Thyroid Disorder Additional Past Medical History / Comment(s): DIVERTICULITIS , SJOGRENS, MIGRAINES, 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 SINUS SX Past Anesthesia/Blood Transfusion Reactions: Motion Sickness, Postoperative Nausea & Vomiting (PONV) Past Psychological History: Anxiety, Depression Smoking Status: Never smoker Past Alcohol Use History: None Reported Additional Past Alcohol Use History / Comment(s): QUIT SMOKING-1977 Past Drug Use History: None Reported - Past Family History Mother History Unknown: Yes Family Medical History: Cancer Father Family Medical History: No Reported History Daughter(s) Family Medical History: No Reported History Medications and Allergies Home Medications Medication Instructions Recorded Confirmed Type Butalb/Acetaminophen/Caffeine 2 tab PO Q4H PRN 03/06/18 09/25/18 History [Fioricet 50-325-40] Cevimeline [Evoxac] 30 mg PO TID 03/06/18 09/25/18 History DULoxetine HCL [Cymbalta] 60 mg PO BID 03/06/18 09/25/18 History HYDROcodone/APAP 10-325MG [[place] 1 each PO BID PRN 03/06/18 09/25/18 History 10-325] Insulin Lispro Protamin/Lispro 18 units INJ BID 03/06/18 09/25/18 History [humaLOG Mix 75-25 Kwikpen] Lansoprazole [Prevacid] 30 mg PO PC-LUNCH 03/06/18 09/25/18 History Levothyroxine Sodium [Synthroid] 75 mcg PO DAILY 03/06/18 09/25/18 History Meloxicam [Mobic] 7.5 mg PO DAILY 03/06/18 09/25/18 History Metaxalone [Skelaxin] 800 mg PO TID 03/06/18 09/25/18 History Montelukast [Singulair] 10 mg PO HS 03/06/18 09/25/18 History Pravastatin Sodium [Pravachol] 80 mg PO HS 03/06/18 09/25/18 History amLODIPine [Norvasc] 5 mg PO BID 03/06/18 09/25/18 History Doxepin [SINEquan] 10 mg PO HS 09/25/18 09/25/18 History Fluticasone Nasal [place] [Flonase 1 spray EA NOSTRIL BID 09/25/18 09/25/18 History Nasal [place]] Naldemedine Tosylate [Symproic] 0.2 mg PO DAILY 09/25/18 09/25/18 History Pregabalin [Lyrica] 225 mg PO DAILY 09/25/18 09/25/18 History Sennosides-Docusate Sodium 2 tab PO DAILY 09/25/18 09/25/18 History [Senokot-S] Allergies Allergy/AdvReac Type Severity Reaction Status Date / Time prochlorperazine Allergy Itching Verified 09/25/18 18:18 [From Compazine] Sulfa (Sulfonamide Allergy Unknown Verified 09/25/18 18:32 Antibiotics) codeine AdvReac Unknown Verified 09/25/18 18:32 Physical Exam Vitals: Vital Signs Temp Pulse Pulse Resp BP BP Pulse Ox 09/26/18 06:15 97.7 F 86 20 156/86 09/26/18 00:00 18 175/94 97 09/25/18 23:40 98.1 F 67 20 176/82 94 L 09/25/18 23:10 98.2 F 66 16 175/94 96 09/25/18 23:00 16 151/87 09/25/18 22:07 98.5 F 74 20 151/87 98 09/25/18 21:21 97.8 F 66 16 154/107 09/25/18 21:00 18 154/80 98 09/25/18 20:00 154/80 09/25/18 18:11 97.8 F 66 16 154/80 97 Intake and Output 09/25/18 09/26/18 09/26/18 22:59 06:59 14:59 Intake Total 100 Balance 100 Intake: Oral 100 Other: # Voids 2 Weight 99.79 kg 99.79 kg - Constitutional General appearance: cooperative, morbidly obese, no acute distress - EENT Eyes: anicteric sclerae, EOMI, dentition normal, normal appearance ENT: NA/AT, normal oropharynx - Neck Neck: normal ROM - Respiratory Respiratory: bilateral: CTA, negative: diminished, dullness, rales, rhonchi - Cardiovascular Rhythm: regular Heart sounds: normal: S1, S2 Abnormal Heart Sounds: no systolic murmur, no diastolic murmur, no rub, no S3 Gallop, no S4 Gallop, no click, no other - Gastrointestinal General gastrointestinal: normal bowel sounds, soft - Integumentary Integumentary: decreased turgor, normal - Neurologic Neurologic: CNII-XII intact - Musculoskeletal Musculoskeletal: generalized weakness, strength equal bilaterally - Psychiatric Psychiatric: A&O x's 3, appropriate affect, intact judgment & insight Results CBC & Chem 7: 09/25/18 19:33 09/25/18 19:33 Labs: Abnormal Lab Results - Last 24 Hours (Table) 09/25/18 09/26/18 Range/Units 19:33 06:58 BUN 18 H (7-17) mg/dL Glucose 179 H (74-99) mg/dL POC Glucose (mg/dL) 144 H (75-99) mg/dL Laboratory Results WBC 7.6 k/uL (3.8-10.6) 09/25/18 19:33 RBC 4.45 m/uL (3.80-5.40) 09/25/18 19:33 Hgb 13.0 gm/dL (11.4-16.0) 09/25/18 19:33 Hct 41.8 % (34.0-46.0) 09/25/18 19:33 MCV 93.9 fL (80.0-100.0) 09/25/18 19:33 MCH 29.1 pg (25.0-35.0) 09/25/18 19:33 MCHC 31.0 g/dL (31.0-37.0) 09/25/18 19:33 RDW 13.4 % (11.5-15.5) 09/25/18 19:33 Plt Count 200 k/uL (150-450) 09/25/18 19:33 Neutrophils % 59 % 09/25/18 19:33 Lymphocytes % 27 % 09/25/18 19:33 Monocytes % 6 % 09/25/18 19:33 Eosinophils % 4 % 09/25/18 19:33 Basophils % 1 % 09/25/18 19:33 Neutrophils # 4.5 k/uL (1.3-7.7) 09/25/18 19:33 Lymphocytes # 2.1 k/uL (1.0-4.8) 09/25/18 19:33 Monocytes # 0.4 k/uL (0-1.0) 09/25/18 19:33 Eosinophils # 0.3 k/uL (0-0.7) 09/25/18 19:33 Basophils # 0.1 k/uL (0-0.2) 09/25/18 19:33 PT 10.2 sec (9.0-12.0) 09/25/18 19:33 INR 1.0 (<1.2) 09/25/18 19:33 APTT 22.7 sec (22.0-30.0) 09/25/18 19:33 Sodium 139 mmol/L (137-145) 09/25/18 19:33 Potassium 4.5 mmol/L (3.5-5.1) 09/25/18 19:33 Chloride 107 mmol/L (98-107) 09/25/18 19:33 Carbon Dioxide 26 mmol/L (22-30) 09/25/18 19:33 Anion Gap 6 mmol/L 09/25/18 19:33 BUN 18 mg/dL (7-17) H 09/25/18 19:33 Creatinine 0.63 mg/dL (0.52-1.04) 09/25/18 19:33 Est GFR (CKD-EPI)AfAm >90 (>60 ml/min/1.73 sqM) 09/25/18 19:33 Est GFR (CKD-EPI)NonAf >90 (>60 ml/min/1.73 sqM) 09/25/18 19:33 Glucose 179 mg/dL (74-99) H 09/25/18 19:33 POC Glucose (mg/dL) 254 mg/dL (75-99) H 09/26/18 16:37 POC Glu 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 [facility] 09/26/18 16:37 Plasma Lactic Acid [place] 1.0 mmol/L (0.7-2.0) 09/25/18 22:40 Calcium 9.2 mg/dL (8.4-10.2) 09/25/18 19:33 Total Bilirubin 0.3 mg/dL (0.2-1.3) 09/25/18 19:33 AST 29 U/L (14-36) 09/25/18 19:33 ALT 31 U/L (9-52) 09/25/18 19:33 Alkaline Phosphatase 90 U/L (38-126) 09/25/18 19:33 Troponin I <0.012 ng/mL (0.000-0.034) 09/25/18 19:33 Total Protein 6.8 g/dL (6.3-8.2) 09/25/18 19:33 Albumin 4.2 g/dL (3.5-5.0) 09/25/18 19:33 Urine Color Light Yellow 09/25/18 19:00 Urine Appearance Clear (Clear) 09/25/18 19:00 Urine pH 6.5 (5.0-8.0) 09/25/18 19:00 Ur Specific [place] 1.007 (1.001-1.035) 09/25/18 19:00 Urine Protein Negative (Negative) 09/25/18 19:00 Urine Glucose (UA) Negative (Negative) 09/25/18 19:00 Urine Ketones Negative (Negative) 09/25/18 19:00 Urine Blood Negative (Negative) 09/25/18 19:00 Urine Nitrite Negative (Negative) 09/25/18 19:00 Urine Bilirubin Negative (Negative) 09/25/18 19:00 Urine Urobilinogen <2.0 mg/dL (<2.0) 09/25/18 19:00 Ur Leukocyte Esterase Negative (Negative) 09/25/18 19:00 Influenza Type A RNA Not Detected (Not Detectd) 09/25/18 23:07 Influenza Type B (PCR) Not Detected (Not Detectd) 09/25/18 23:07 Thrombosis Risk Factor Assmnt - DVT/VTE Prophylaxis DVT/VTE Prophylaxis: Pharmacologic Prophylaxis ordered, Mechanical Prophylaxis ordered - Choose All That Apply Any of the Below Risk Factors Present?: Yes Each Factor Represents 1 point: Obesity (BMI >25) Each Risk Factor Represents 2 Points: Age 61-74 years Thrombosis Risk Factor Assessment Total Risk Factor Score: 3 Thrombosis Risk Factor Assessment Level: Moderate Risk Assessment and Plan Plan: 1. Right lower lobe pneumonia with metabolic encephalopathy, increasing progressive weakness, shortness of breath echocardiogram patient is treated with community acquired pneumonia protocol with Rocephin and Zithromax, we would attempt to obtain sputum cultures, blood cultures are currently pending 2. Fibromyalgia with chronic pain, patient has cervical disc disease and lumbar disc disease last MRI was 2016, however in view off increasing weakness of the upper extremity, cervical myelopathy needs to be ruled out, we'll going to obtain MRI of the cervical spine, her recent CAT scan failed to reveal any acute traumatic processes. Continue Cymbalta 60 mg twice a day, keep nor call twice a day, we'll going to decrease Lyrica to 150 mg daily secondary to weakness and memory impairment and confusion. Decreased Zanaflex 5 mg 3 times a day 3. Impaired balance and gait, recurrent falls, patient would have an MRI as recommended above cervical spine, patient will be seen by physical therapy and occupational therapy 4. Sjogren syndrome, patient is on Evoxac 30 mg 3 times a day no changes made 5. Chronic insomnia, underlying sleep apnea cannot be ruled out, trazodone would be discontinued for now secondary to weakness, orthostatic vitals to be done 6. Impaired balance and gait pre-existing, patient requires walker for community ambulation was PT OT 7. Neurocognitive deficits with short-term memory impairment, was likely secondary to poor sleep efficiency, sleep hygiene is recommended, CAT scan failed to reveal any acute CVA changes or chronic CVA changes were going to decrease the cut to 150 mg at bedtime, decreased Flexeril to 5 mg 3 times a day, 8. Dysthymia, chronic helplessness at home, patient depends on the for medication compliance and everything else including home cleaning and meal preparation. 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 CK D stage I 11. Mild intermittent asthma exacerbation, on Singulair daily, when necessary albuterol, Pulmicort 0.5 mg twice a day Solu-Medrol 40 mg every 8 hours 12. GI prophylaxis DVT prophylaxis 14. Chronic constipation, symproic [place]-Colace 200 mg daily started
[2018-09-26] MEDS: methylPREDNISolone SOD SUCCI 40 MG/ML 1 ML VIAL IV SCH ×2 (18:16→23:12)
[2018-09-26] MEDS: BUDESONIDE 0.5 MG/2 ML NEBU INHALATION SCH (19:50)
[2018-09-26] MEDS: IPRATROPIUM-ALBUTEROL 3 ML NEB INHALATION PRN (19:50)
[2018-09-26] MEDS: FAMOTIDINE 20 MG TAB PO SCH (20:44)
[2018-09-26] MEDS: PRAVASTATIN SODIUM 80 MG TAB PO SCH (20:44)
[2018-09-26] MEDS: MONTELUKAST 10 MG TAB PO SCH (20:45)
[2018-09-26] MEDS: PREGABALIN 75 MG CAP PO SCH (20:48)
[2018-09-26 20:51] LABS: Glucose,Whole Blood 274 mg/dL (75-99)
[2018-09-26] MEDS ORDERED: DOXEPIN 10 MG CAP PO SCH (21:00)
[2018-09-27] MEDS: BUTALB/APAP/CAFF 50-325-40MG TAB PO PRN ×4 (00:57→23:05)
[2018-09-27] MEDS: SODIUM CHLORIDE 0.9% 1,000 ML IV SCH (05:09)
[2018-09-27] MEDS: BUDESONIDE 0.5 MG/2 ML NEBU INHALATION SCH ×3 (06:56→20:38)
[2018-09-27] MEDS: IPRATROPIUM-ALBUTEROL 3 ML NEB INHALATION PRN (06:56)
[2018-09-27 07:22] LABS: Glucose,Whole Blood 230 mg/dL (75-99)
[2018-09-27] MEDS: INSULIN ASPART 100 UNIT/ML 1 ML 10 ML VIAL SQ SCH ×3 (08:03→18:27)
[2018-09-27] MEDS: MELOXICAM 7.5 MG TAB PO SCH (08:05)
[2018-09-27] MEDS: DULoxetine HCL 60 MG CAPSULE.DR PO SCH ×2 (08:05→21:27)
[2018-09-27] MEDS: CEVIMELINE 30 MG CAP PO SCH ×3 (08:05→21:27)
[2018-09-27] MEDS: ENOXAPARIN 40 MG/0.4 ML SYRINGE SQ SCH (08:05)
[2018-09-27] MEDS: methylPREDNISolone SOD SUCCI 40 MG/ML 1 ML VIAL IV SCH ×2 (08:05→16:08)
[2018-09-27] MEDS: FAMOTIDINE 20 MG TAB PO SCH (08:05)
[2018-09-27] MEDS: FLUTICASONE 50MCG/SPRAY NASAL 16GM EA NOSTRIL SCH ×2 (08:06→21:28)
[2018-09-27] MEDS: SENNOSIDES-DOCUSATE SODIUM 1 EACH TAB PO SCH (08:06)
[2018-09-27] MEDS: AZITHROMYCIN 500 MG TAB PO SCH (08:06)
[2018-09-27] MEDS: amLODIPine 5 MG TAB PO SCH ×2 (08:06→21:28)
[2018-09-27] MEDS: NALDEMEDINE TOSYLATE 0.2 MG PO SCH (08:07)
[2018-09-27] MEDS: INSULN ASP PRT/INSULIN ASPART 100 UNIT/ML 10 ML VIAL SQ SCH ×2 (08:07→21:32)
[2018-09-27 09:05] LABS: Basophils % (A) 0 %; Eosinophils % (A) 0 %; HCT 40.1 % (34.0-46.0); HGB 13.2 gm/dL (11.4-16.0); Lymphocytes # (A) 1.3 k/uL (1.0-4.8); Lymphocytes % (A) 13 %; MCH 30.2 pg (25.0-35.0); MCV 91.5 fL (80.0-100.0); Mean Platelet Volume 8.5; Monocytes # (A) 0.4 k/uL (0-1.0); Monocytes % (A) 3 %; Neutrophils # (A) 8.8 k/uL (1.3-7.7); Neutrophils % (A) 83 %; Platelet Count 203 k/uL (150-450); RBC 4.38 m/uL (3.80-5.40); RDW 13.3 % (11.5-15.5); WBC 10.6 k/uL (3.8-10.6)
[2018-09-27 10:29] LABS: Hemoglobin A1C 6.4 % (4.0-6.0)
--- NOTE | 2018-09-27 12:56 | MR ---
EXAMINATION TYPE: MR cervical spine wo con DATE OF EXAM: 09/27/2018 COMPARISON: 02/18/2016 HISTORY: Fall, myelopathy CONTRAST: Performed utilizing 0 mL intravenous Gadavist gadolinium contrast. TECHNIQUE: Multiplanar multiecho imaging on a 3.0 Shyla magnet is performed through the cervical spin e. FINDINGS: The craniovertebral junction is normal. Vertebral body alignment is normal. No focal disc herniations or significant disc bulges are evident. Disc heights are preserved. Vertebr al body heights are preserved. Alignment is normal. Some mild diffuse disc desiccation is present thr ough the upper cervical spine. No suspicious foraminal stenosis. IMPRESSIONS: 1. No suspicious disc bulges disc herniations or stenosis.
[2018-09-27 12:59] LABS: Glucose,Whole Blood 174 mg/dL (75-99)
[2018-09-27] MEDS: PANTOPRAZOLE 40 MG TABLET PO SCH (13:03)
--- NOTE | 2018-09-27 13:30 | P.PN ---
Subjective Progress Note Date: 09/27/18 This is a 68-year-old pleasant female known to my practice, known history of diabetes mellitus type 2, fibromyalgia pain, chronic pain, asthma, number impairment, hypothyroidism, Sjogren's, migraines, admitted to the emergency room secondary to weakness. Patient also has cough, and sweats, chills, constipation, has been forgetting more, patient has some low-grade fever, and had fallen down while walking over to the bathroom. Patient tripped over a garbage that is in the bedroom, and patient is blaming the for all the difficulties in her life. She also relies on the to provide medications for her to be compliant as she does forget a lot specially possibly duplicating her medications. She is on narcotics twice a day, [place]. Patient requires walker for community ambulation, denies any new leg swelling, patient has difficulties with bilateral arms, weakness in the tong setter, and falls. She also has some cough, nonproductive. This of breath or shortness of breath and exertion, no aspirated events, no nausea no vomiting or diarrhea patient significantly constipated In emergency room chest x-ray that was done from 9 reading shows right lower lobe pneumonia started on Rocephin and Zithromax apical spine x-rays secondary to trauma failed to reveal any acute dislocation, EKG shows normal sinus rhythm first degree AV block, incomplete bundle branch block, Q waves inferior leads we 're requesting an MRI of the cervical spine to evaluate for cervical myelopathy , secondary to progressive deterioration of what is suspected cervical myelopathy to be aggravated by pneumonia. Influenza test negative, lactic acid level I.0. Patient is treated for community-acquired pneumonia, with consults to physical therapy occupational therapy 09/27: Patient was quite confused during the night and continues to be somewhat confused but improved this morning. She is scheduled for MRI of the C-spine today. She is complaining of headache in the back of her head in the occipital region and down into her neck. We will consult Dr. Jerez for occipital nerve block. Echocardiogram has been done and report is pending. She continues to have wheezing for which Solu-Medrol will remain at 40 mg every 8 hours and scheduled DuoNeb treatments ordered. Patient is are on Pulmicort twice daily. IV fluids changed to saline lock. Review Of Systems: Constitutional: No fever, no chills, no night sweats. No weight change. Complains of weakness, fatigue or lethargy. No daytime sleepiness. EENT: Complains of headache. No blurred vision or double vision, no loss of vision. No loss of Hearing, no ringing in the ears, no dizziness. No nasal drainage or congestion. No epistaxis. No sore throat. Lungs: Complains of shortness of breath, cough, no sputum production. Complains of wheezing. Cardiovascular: No chest pain, no lower extremity edema. No palpitations. No paroxysmal nocturnal dyspnea. No orthopnea. No lightheadedness or dizziness. No syncopal episodes. Abdominal: No abdominal pain. No nausea, vomiting. No diarrhea. No constipation. No bloody or tarry stools.. No loss of appetite. Genitourinary: No dysuria, increased frequency, urgency. No urinary retention. Musculoskeletal: No myalgias. Complains of muscle weakness, complains of gait dysfunction. No back pain. Complains of neck pain. Integumentary: No wounds, no lesions. No rash or pruritus. No unusual bruising. No change in hair or nails. Neurologic: No aphasia. No facial droop. No change in mentation. No head injury. No headache. No paralysis. No paresthesia. Psychiatric: No depression. No anxiety. No mood swings. Endocrine: No abnormal blood sugars. No weight change. No excessive sweating or thirst. No cold intolerance. Objective - Vital Signs Vital signs: Vital Signs Temp 97.5 F L 09/27/18 06:10 Pulse 97 09/27/18 06:10 Resp 20 09/27/18 06:10 BP 183/91 09/27/18 06:10 Pulse Ox 96 09/27/18 06:10 Intake & Output 09/26/18 09/27/18 09/27/18 18:59 06:59 18:59 Intake Total 400 Balance 400 Intake: Oral 400 Other: # Voids 1 3 - Exam General appearance: cooperative, morbidly obese, no acute distress - EENT Eyes: anicteric sclerae, EOMI, dentition normal, normal appearance ENT: NA/AT, normal oropharynx - Neck Neck: normal ROM. Tenderness to the right occipital region - Respiratory Respiratory: bilateral: CTA, negative: diminished, dullness, rales, rhonchi - Cardiovascular Rhythm: regular Heart sounds: normal: S1, S2 Abnormal Heart Sounds: no systolic murmur, no diastolic murmur, no rub, no S3 Gallop, no S4 Gallop, no click, no other - Gastrointestinal General gastrointestinal: normal bowel sounds, soft - Integumentary Integumentary: decreased turgor, normal - Neurologic Neurologic: CNII-XII intact - Musculoskeletal Musculoskeletal: generalized weakness, strength equal bilaterally - Psychiatric Psychiatric: A&O x's 2, appropriate affect, intact judgment & insight - Labs CBC & Chem 7: 09/27/18 08:37 09/25/18 19:33 Labs: Abnormal Lab Results - Last 24 Hours (Table) 09/26/18 09/26/18 09/26/18 Range/Units 11:50 16:37 20:39 POC Glucose (mg/dL) 137 H 254 H 274 H (75-99) mg/dL 09/27/18 Range/Units 07:11 POC Glucose (mg/dL) 230 H (75-99) mg/dL Microbiology - Last 24 Hours (Table) 09/25/18 22:40 Blood Culture - Preliminary Blood No Growth after 24 hours Assessment and Plan Plan: 1. Right lower lobe pneumonia with metabolic encephalopathy, increasing progressive weakness, shortness of breath echocardiogram patient is treated with community acquired pneumonia protocol with Rocephin and Zithromax, we would attempt to obtain sputum cultures, blood cultures are showing no growth. Continue DuoNeb treatments scheduled and as needed as well as Pulmicort twice daily, Solu-Medrol 40 mg every 8 hours. 2. Fibromyalgia with chronic pain, patient has cervical disc disease and lumbar disc disease last MRI was 2015, however in view off increasing weakness of the upper extremity, cervical myelopathy needs to be ruled out, we'll going to obtain MRI of the cervical spine, her recent CAT scan failed to reveal any acute traumatic processes. Continue Cymbalta 60 mg twice a day, keep nor call twice a day, we'll going to decrease Lyrica to 150 mg daily secondary to weakness and memory impairment and confusion. Decreased Zanaflex 5 mg 3 times a day. 3. Impaired balance and gait, recurrent falls, patient would have an MRI as recommended above cervical spine, patient will be seen by physical therapy and occupational therapy 4. Sjogren syndrome, patient is on Evoxac 30 mg 3 times a day no changes made 5. Chronic insomnia, underlying sleep apnea cannot be ruled out, trazodone would be discontinued for now secondary to weakness, orthostatic vitals to be done 6. Impaired balance and gait pre-existing, patient requires walker for community ambulation was PT OT 7. Neurocognitive deficits with short-term memory impairment, was likely secondary to poor sleep efficiency, sleep hygiene is recommended, CAT scan failed to reveal any acute CVA changes or chronic CVA changes were going to decrease the cut to 150 mg at bedtime, decreased Flexeril to 5 mg 3 times a day, 8. Dysthymia, chronic helplessness at home, patient depends on the for medication compliance and everything else including home cleaning and meal preparation. 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 CKD stage I 10. Occipital neuralgia. Consult with Dr. Brar for occipital nerve block 11. Mild intermittent asthma exacerbation, on Singulair daily, when necessary albuterol, Pulmicort 0.5 mg twice a day Solu-Medrol 40 mg every 8 hours 12. GI prophylaxis 13. DVT prophylaxis 14. Chronic constipation, [place]-Colace 200 mg daily started 15. Diabetes mellitus type 2, insulin requiring, uncontrolled with hyperglycemia secondary to steroids. NovoLog 7030 will be increased to 22 units twice daily. Continue NovoLog scale. Discharge plan: on Sunday Impression and plan of care have been directed as dictated by the signing physician. Thea Lemus nurse practitioner acting as scribe for signing physician.
[2018-09-27 17:19] LABS: Glucose,Whole Blood 236 mg/dL (75-99)
--- NOTE | 2018-09-27 17:39 | ECHOF ---
Referral Reason:shortness of breath MEASUREMENTS -------- HEIGHT: 154.9 cm WEIGHT: 99.8 kg BP: 183/91 RVIDd: 2.8 cm (< 3.3) IVSd: 1.1 cm (0.6 - 1.1) LVIDd: 4.0 cm (3.9 - 5.3) LVPWd: 1.1 cm (0.6 - 1.1) IVSs: 1.4 cm LVIDs: 2.7 cm LVPWs: 1.4 cm LAESV Index (A-L): 13.45 ml/m Ao Diam: 3.3 cm (2.0 - 3.7) AV Cusp: 1.8 cm (1.5 - 2.6) LA Diam: 3.3 cm (2.7 - 3.8) MV E Mike: 0.91 m/s MV DecT: 234 ms MV A Mike: 1.22 m/s MV E/A Ratio: 0.75 RAP: 5.00 mmHg RVSP: 11.30 mmHg FINDINGS -------- Sinus rhythm. This was a technically difficult study with suboptimal views. The left ventricular size is normal. There is borderline concentric left ventricular hypertrophy. Overall left ventricular systolic function is normal with, an EF between 55 - 60 %. The right ventricle is normal in size and function. Normal LA size by volume 22+/-6 ml/m2. The right atrium was not well visualized. 3 ml of Lumason was utilized for enhancement of images. The aortic valve is trileaflet, and appears structurally normal. No aortic stenosis or regurgitation. The mitral valve is normal. Mild mitral regurgitation is present. Mild tricuspid regurgitation present. Right ventricular systolic pressure is normal at < 35 mmHg. The pulmonic valve was not well visualized. There is no pulmonic regurgitation present. The aortic root size is normal. Normal inferior vena cava with normal inspiratory collapse consistent with estimated right atrial pre ssure of 5 mmHg. There is no pericardial effusion. CONCLUSIONS -------- 1. Sinus rhythm. 2. This was a technically difficult study with suboptimal views. 3. The left ventricular size is normal. 4. There is borderline concentric left ventricular hypertrophy. 5. Overall left ventricular systolic function is normal with, an EF between 55 - 60 %. 6. Normal LA size by volume 22+/-6 ml/m2. 7. The right atrium was not well visualized. 8. 3 ml of Lumason was utilized for enhancement of images. 9. The aortic valve is trileaflet, and appears structurally normal. No aortic stenosis or regurgitati on. 10. Mild mitral regurgitation is present. 11. Mild tricuspid regurgitation present. 12. Right ventricular systolic pressure is normal at < 35 mmHg. 13. The pulmonic valve was not well visualized. 14. The aortic root size is normal. 15. There is no pericardial effusion. BUSINESS OPERATIONS ANALYST: Charles Guido RDCS
[2018-09-27] MEDS: IPRATROPIUM-ALBUTEROL 3 ML NEB INHALATION SCH ×2 (18:56→20:37)
[2018-09-27 20:48] LABS: Glucose,Whole Blood 349 mg/dL (75-99)
[2018-09-27] MEDS: MONTELUKAST 10 MG TAB PO SCH (21:27)
[2018-09-27] MEDS: PRAVASTATIN SODIUM 80 MG TAB PO SCH (21:27)
[2018-09-27] MEDS: PREGABALIN 75 MG CAP PO SCH (21:34)
[2018-09-28] MEDS: methylPREDNISolone SOD SUCCI 40 MG/ML 1 ML VIAL IV SCH ×2 (00:44→08:21)
[2018-09-28 07:26] LABS: Glucose,Whole Blood 165 mg/dL (75-99)
[2018-09-28] MEDS: IPRATROPIUM-ALBUTEROL 3 ML NEB INHALATION SCH ×3 (08:18→20:24)
[2018-09-28] MEDS: BUDESONIDE 0.5 MG/2 ML NEBU INHALATION SCH ×2 (08:18→20:24)
[2018-09-28] MEDS: INSULIN ASPART 100 UNIT/ML 1 ML 10 ML VIAL SQ SCH ×3 (08:19→17:51)
[2018-09-28] MEDS: INSULN ASP PRT/INSULIN ASPART 100 UNIT/ML 10 ML VIAL SQ SCH ×2 (08:19→21:00)
[2018-09-28] MEDS: CEVIMELINE 30 MG CAP PO SCH ×3 (08:21→21:00)
[2018-09-28] MEDS: AZITHROMYCIN 500 MG TAB PO SCH (08:21)
[2018-09-28] MEDS: ENOXAPARIN 40 MG/0.4 ML SYRINGE SQ SCH (08:21)
[2018-09-28] MEDS: SENNOSIDES-DOCUSATE SODIUM 1 EACH TAB PO SCH (08:21)
[2018-09-28] MEDS: DULoxetine HCL 60 MG CAPSULE.DR PO SCH ×2 (08:22→21:00)
[2018-09-28] MEDS: FLUTICASONE 50MCG/SPRAY NASAL 16GM EA NOSTRIL SCH ×2 (08:22→21:01)
[2018-09-28] MEDS: amLODIPine 5 MG TAB PO SCH ×2 (08:22→21:00)
[2018-09-28] MEDS: MELOXICAM 7.5 MG TAB PO SCH (08:22)
[2018-09-28] MEDS ORDERED: IBUPROFEN 400 MG TAB PO PRN (08:56)
[2018-09-28] MEDS ORDERED: IBUPROFEN 400 MG TAB PO STA (08:56)
[2018-09-28 10:08] LABS: Basophils # (A) 0.1 k/uL (0-0.2); Basophils % (A) 1 %; Eosinophils % (A) 0 %; HCT 39.2 % (34.0-46.0); HGB 12.8 gm/dL (11.4-16.0); Lymphocytes # (A) 2.3 k/uL (1.0-4.8); Lymphocytes % (A) 30 %; MCH 30.3 pg (25.0-35.0); MCHC 32.6 g/dL (31.0-37.0); MCV 93.2 fL (80.0-100.0); Monocytes # (A) 0.4 k/uL (0-1.0); Monocytes % (A) 5 %; Neutrophils # (A) 4.8 k/uL (1.3-7.7); Neutrophils % (A) 62 %; Platelet Count 175 k/uL (150-450); RDW 13.5 % (11.5-15.5); WBC 7.7 k/uL (3.8-10.6)
[2018-09-28] MEDS: NALDEMEDINE TOSYLATE 0.2 MG PO SCH (10:13)
[2018-09-28] MEDS: predniSONE 20 MG TAB PO SCH (10:13)
[2018-09-28 10:35] LABS: Anion Gap 9 mmol/L; Blood Urea Nitrogen 21 mg/dL (7-17); Calcium 9.3 mg/dL (8.4-10.2); Carbon Dioxide 24 mmol/L (22-30); Chloride 109 mmol/L (98-107); Glucose 235 mg/dL (74-99); Potassium 3.9 mmol/L (3.5-5.1); Sodium 142 mmol/L (137-145)
[2018-09-28 12:08] LABS: Glucose,Whole Blood 168 mg/dL (75-99)
[2018-09-28] MEDS: PANTOPRAZOLE 40 MG TABLET PO SCH (12:34)
[2018-09-28] MEDS: BUTALB/APAP/CAFF 50-325-40MG TAB PO PRN ×2 (14:13→18:52)
--- NOTE | 2018-09-28 15:42 | P.CNPUL ---
History of Present Illness Consult date: 09/28/18 Reason for consult: dyspnea, cough, hypoxemia, pneumonia Chief complaint: Pneumonia History of present illness: 68-year-old female seen eval examined in the medical unit patient has been admitted to hospital with the problem associated with generalized weakness also has ongoing issues acidic cough sweats chills and not feeling well she has been found to have right-sided pneumonia patient is being treated broad-spectrum antibiotics, influenza swab have been negative, patient has significant occipital headache pain anesthesia service has been consulted labs reviewed medications reviewed radiographic studies reviewed as well Review of Systems All systems: negative Past Medical History Past Medical History: Asthma, Diabetes Mellitus, GERD/Reflux, Hyperlipidemia, Hypertension, Memory Impairment, Neurologic Disorder, Thyroid Disorder Additional Past Medical History / Comment(s): DIVERTICULITIS , SJOGRENS, MIGRAINES, 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 SINUS SX Past Anesthesia/Blood Transfusion Reactions: Motion Sickness, Postoperative Nausea & Vomiting (PONV) Past Psychological History: Anxiety, Depression Smoking Status: Never smoker Past Alcohol Use History: None Reported Additional Past Alcohol Use History / Comment(s): QUIT SMOKING-1977 Past Drug Use History: None Reported - Past Family History Mother History Unknown: Yes Family Medical History: Cancer Father Family Medical History: No Reported History Daughter(s) Family Medical History: No Reported History Medications and Allergies Home Medications Medication Instructions Recorded Confirmed Type Butalb/Acetaminophen/Caffeine 2 tab PO Q4H PRN 03/06/18 09/25/18 History [Fioricet 50-325-40] Cevimeline [Evoxac] 30 mg PO TID 03/06/18 09/25/18 History DULoxetine HCL [Cymbalta] 60 mg PO BID 03/06/18 09/25/18 History HYDROcodone/APAP 10-325MG [[place] 1 each PO BID PRN 03/06/18 09/25/18 History 10-325] Insulin Lispro Protamin/Lispro 18 units INJ BID 03/06/18 09/25/18 History [humaLOG Mix 75-25 Kwikpen] Lansoprazole [Prevacid] 30 mg PO PC-LUNCH 03/06/18 09/25/18 History Levothyroxine Sodium [Synthroid] 75 mcg PO DAILY 03/06/18 09/25/18 History Meloxicam [Mobic] 7.5 mg PO DAILY 03/06/18 09/25/18 History Metaxalone [Skelaxin] 800 mg PO TID 03/06/18 09/25/18 History Montelukast [Singulair] 10 mg PO HS 03/06/18 09/25/18 History Pravastatin Sodium [Pravachol] 80 mg PO HS 03/06/18 09/25/18 History amLODIPine [Norvasc] 5 mg PO BID 03/06/18 09/25/18 History Doxepin [SINEquan] 10 mg PO HS 09/25/18 09/25/18 History Fluticasone Nasal [place] [Flonase 1 spray EA NOSTRIL BID 09/25/18 09/25/18 History Nasal [place]] Naldemedine Tosylate [Symproic] 0.2 mg PO DAILY 09/25/18 09/25/18 History Pregabalin [Lyrica] 225 mg PO DAILY 09/25/18 09/25/18 History Sennosides-Docusate Sodium 2 tab PO DAILY 09/25/18 09/25/18 History [Senokot-S] Allergies Allergy/AdvReac Type Severity Reaction Status Date / Time prochlorperazine Allergy Itching Verified 09/25/18 18:18 [From Compazine] Sulfa (Sulfonamide Allergy Unknown Verified 09/25/18 18:32 Antibiotics) codeine AdvReac Unknown Verified 09/25/18 18:32 Physical Exam Vitals: Vital Signs Temp Pulse Pulse Resp BP Pulse Ox 09/28/18 15:00 97.5 F L 84 18 126/69 99 09/28/18 12:10 87 09/28/18 11:56 86 09/28/18 08:00 75 18 09/28/18 07:00 98.0 F 75 18 149/78 97 09/27/18 23:00 97.0 F L 90 18 164/73 94 L 09/27/18 22:00 96 09/27/18 20:54 88 09/27/18 20:38 84 09/27/18 19:45 18 Intake and Output 09/28/18 09/28/18 09/28/18 06:59 14:59 22:59 Intake Total 80 Balance 80 Intake: Intake, IV Titration 80 Amount Sodium Chloride 0.9% 1, 80 000 ml @ 100 mls/hr IV . Q10H [facility] Rx#:[id number] Other: # Voids 2 3 - Constitutional General appearance: average body habitus, cooperative, disheveled, mild distress , obese - EENT Eyes: EOMI, PERRLA, poor dentition, normal appearance ENT: hard of hearing, normal oropharynx Ears: bilateral: normal - Neck Carotids: bilateral: upstroke normal - Respiratory Respiratory: bilateral: diminished, rales, prolonged expiration, negative: dullness, rhonchi, wheezing - Cardiovascular Rhythm: regular Heart sounds: normal: S1, S2 - Gastrointestinal General gastrointestinal: decreased bowel sounds, distended, soft - Integumentary Integumentary: normal turgor - Neurologic Neurologic: CNII-XII intact - Musculoskeletal Musculoskeletal: gait normal, generalized weakness, strength equal bilaterally - Psychiatric Psychiatric: A&O x's 3, appropriate affect, intact judgment & insight Results - Laboratory Findings CBC and BMP: 09/28/18 09:29 09/28/18 09:29 PT/INR, D-dimer PT 10.2 sec (9.0-12.0) 09/25/18 19:33 INR 1.0 (<1.2) 09/25/18 19:33 Abnormal lab findings: Abnormal Labs 09/25/18 09/25/18 09/26/18 19:33 19:33 06:58 Neutrophils # Chloride BUN 18 H Glucose 179 H POC Glucose (mg/dL) 144 H Hemoglobin A1c 6.4 H 09/26/18 09/26/18 09/26/18 11:50 16:37 20:39 Neutrophils # Chloride BUN Glucose POC Glucose (mg/dL) 137 H 254 H 274 H Hemoglobin A1c 09/27/18 09/27/18 09/27/18 07:11 08:37 12:58 Neutrophils # 8.8 H Chloride BUN Glucose POC Glucose (mg/dL) 230 H 174 H Hemoglobin A1c 09/27/18 09/27/18 09/28/18 17:04 20:47 07:24 Neutrophils # Chloride BUN Glucose POC Glucose (mg/dL) 236 H 349 H 165 H Hemoglobin A1c 09/28/18 09/28/18 09:29 12:06 Neutrophils # Chloride 109 H BUN 21 H Glucose 235 H POC Glucose (mg/dL) 168 H Hemoglobin A1c - Diagnostic Findings Chest x-ray: report reviewed (Admitted x-rays is still of developing right lower lobe pneumonia, echocardiogram revealed LVH along with ejection fraction of 55-60%), image reviewed Assessment and Plan Assessment: Right lower lobe pneumonia community-acquired Severe occipital headache and facial headache Fibromyalgia Sjogren syndrome Possible sleep disorder breathing and sleep apnea along with the history of chronic insomnia Morbid obesity Plan: Broad-spectrum antibiotics Increase activity as tolerated Agree for occipital block Patient will require a polysomnogram on outpatient setting Further recommendations pending plan of care as per clinical response of patient Time with Patient: Greater than 30
[2018-09-28] MEDS: HYDROcodone/APAP 10-325MG 1 EACH TAB PO PRN (16:46)
--- NOTE | 2018-09-28 16:54 | P.PN ---
Subjective Progress Note Date: 09/28/18 This is a 68-year-old pleasant female known to my practice, known history of diabetes mellitus type 2, fibromyalgia pain, chronic pain, asthma, number impairment, hypothyroidism, Sjogren's, migraines, admitted to the emergency room secondary to weakness. Patient also has cough, and sweats, chills, constipation, has been forgetting more, patient has some low-grade fever, and had fallen down while walking over to the bathroom. Patient tripped over a garbage that is in the bedroom, and patient is blaming the for all the difficulties in her life. She also relies on the to provide medications for her to be compliant as she does forget a lot specially possibly duplicating her medications. She is on narcotics twice a day, [place]. 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 She also has some cough, nonproductive. This of breath or shortness of breath and exertion, no aspirated events, no nausea no vomiting or diarrhea patient significantly constipated In emergency room chest x-ray that was done from reading shows right lower lobe pneumonia started on Rocephin and Zithromax apical spine x-rays secondary to trauma failed to reveal any acute dislocation, EKG shows normal sinus rhythm first degree AV block, incomplete bundle branch block, Q waves inferior leads we 're requesting an MRI of the cervical spine to evaluate for cervical myelopathy , secondary to progressive deterioration of what is suspected cervical myelopathy to be aggravated by pneumonia. Influenza test negative, lactic acid level I.0. Patient is treated for community-acquired pneumonia, with consults to physical therapy occupational therapy 09/27: Patient was quite confused during the night and continues to be somewhat confused but improved this morning. She is scheduled for MRI of the C-spine today. She is complaining of headache in the back of her head in the occipital region and down into her neck. We will consult Dr. Jerez for occipital nerve block. Echocardiogram has been done and report is pending. She continues to have wheezing for which Solu-Medrol will remain at 40 mg every 8 hours and scheduled DuoNeb treatments ordered. Patient is are on Pulmicort twice daily. IV fluids changed to saline lock. 09/28: Patient sitting up in the chair today. does not appear to have any confusion, she is able to answer questions appropriately. Patient states that her headache is better that she only has some pain with movement. She also is feeling that she is breathing better. She does complain of some wheezes. Cervical MRI showed no suspicious disc bulges herniations or stenosis. Review Of Systems: Constitutional: No fever, no chills, no night sweats. No weight change. Complains of weakness, fatigue or lethargy. No daytime sleepiness. EENT: Complains of headache. No blurred vision or double vision, no loss of vision. No loss of Hearing, no ringing in the ears, no dizziness. No nasal drainage or congestion. No epistaxis. No sore throat. Lungs: Complains of shortness of breath, cough, no sputum production. Complains of wheezing. Cardiovascular: No chest pain, no lower extremity edema. No palpitations. No paroxysmal nocturnal dyspnea. No orthopnea. No lightheadedness or dizziness. No syncopal episodes. Abdominal: No abdominal pain. No nausea, vomiting. No diarrhea. No constipation. No bloody or tarry stools.. No loss of appetite. Genitourinary: No dysuria, increased frequency, urgency. No urinary retention. Musculoskeletal: No myalgias. Complains of muscle weakness, complains of gait dysfunction. No back pain. Complains of neck pain. Integumentary: No wounds, no lesions. No rash or pruritus. No unusual bruising. No change in hair or nails. Neurologic: No aphasia. No facial droop. No change in mentation. No head injury. No headache. No paralysis. No paresthesia. Psychiatric: No depression. No anxiety. No mood swings. Endocrine: No abnormal blood sugars. No weight change. No excessive sweating or thirst. No cold intolerance. Objective - Vital Signs Vital signs: Vital Signs Temp 97.5 F L 09/28/18 15:00 Pulse 84 09/28/18 16:00 Resp 18 09/28/18 16:00 BP 126/69 09/28/18 15:00 Pulse Ox 99 09/28/18 15:00 Intake & Output 09/27/18 09/28/18 09/28/18 18:59 06:59 18:59 Intake Total 80 Balance 80 Intake: Intake, IV Titration 80 Amount Sodium Chloride 0.9% 1, 80 000 ml @ 100 mls/hr IV . Q10H DENISSE Rx#:[id number] Other: # Voids 2 2 3 # Bowel Movements 1 - Constitutional General appearance: Present: cooperative, morbidly obese, no acute distress - EENT Eyes: Present: anicteric sclerae, EOMI, PERRLA ENT: Present: hearing grossly normal - Neck Neck: Present: normal ROM. Absent: lymphadenopathy, rigidity - Respiratory Respiratory: bilateral: wheezing, negative: diminished, dullness, rales, rhonchi - Cardiovascular Rhythm: regular Heart sounds: normal: S1, S2 Abnormal Heart Sounds: Absent: systolic murmur, diastolic murmur, rub, S3 Gallop , S4 Gallop, click, other - Gastrointestinal General gastrointestinal: Present: normal bowel sounds, soft. Absent: tenderness - Integumentary Integumentary: Present: decreased turgor, normal - Neurologic Neurologic: Present: CNII-XII intact - Musculoskeletal Musculoskeletal: Present: generalized weakness, strength equal bilaterally - Psychiatric Psychiatric: Present: A&O x's 3, appropriate affect, intact judgment & insight - Labs CBC & Chem 7: 09/28/18 09:29 09/28/18 09:29 Labs: Abnormal Lab Results - Last 24 Hours (Table) 09/27/18 09/27/18 09/28/18 Range/Units 17:04 20:47 07:24 Chloride (98-107) mmol/L BUN (7-17) mg/dL Glucose (74-99) mg/dL POC Glucose (mg/dL) 236 H 349 H 165 H (75-99) mg/dL 09/28/18 09/28/18 Range/Units 09:29 12:06 Chloride 109 H (98-107) mmol/L BUN 21 H (7-17) mg/dL Glucose 235 H (74-99) mg/dL POC Glucose (mg/dL) 168 H (75-99) mg/dL Microbiology - Last 24 Hours (Table) 09/25/18 22:40 Blood Culture - Preliminary Blood No Growth after 48 hours Assessment and Plan Plan: 1. Right lower lobe pneumonia with metabolic encephalopathy, increasing progressive weakness, shortness of breath echocardiogram patient is treated with community acquired pneumonia protocol with Rocephin and Zithromax, we would attempt to obtain sputum cultures, blood cultures are showing no growth. Continue DuoNeb treatments scheduled and as needed as well as Pulmicort twice daily, redness around 40 mg daily 2. Fibromyalgia with chronic pain, patient has cervical disc disease and lumbar disc disease last MRI was 2015, however in view off increasing weakness of the upper extremity, cervical myelopathy needs to be ruled out, cervical MRI shows no disc bulging, herniation, or stenosis. Continue Cymbalta 60 mg twice a day, keep nor call twice a day, we'll going to decrease Lyrica to 150 mg daily secondary to weakness and memory impairment and confusion. Decreased Zanaflex 5 mg 3 times a day. Ibuprofen 400 mg every 4 hours as needed for pain 3. Impaired balance and gait, recurrent falls, patient would have an MRI as recommended above cervical spine, patient will be seen by physical therapy and occupational therapy 4. Sjogren syndrome, patient is on Evoxac 30 mg 3 times a day no changes made 5. Chronic insomnia, underlying sleep apnea cannot be ruled out, trazodone would be discontinued for now secondary to weakness, orthostatic vitals to be done 6. Impaired balance and gait pre-existing, patient requires walker for community ambulation was PT OT 7. Neurocognitive deficits with short-term memory impairment, was likely secondary to poor sleep efficiency, sleep hygiene is recommended, CAT scan failed to reveal any acute CVA changes or chronic CVA changes were going to decrease the cut to 150 mg at bedtime, decreased Flexeril to 5 mg 3 times a day, 8. Dysthymia, chronic helplessness at home, patient depends on the for medication compliance and everything else including home cleaning and meal preparation. 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 CKD stage I 10. Occipital neuralgia. Consult with Dr. Brar for occipital nerve block 11. Mild intermittent asthma exacerbation, on Singulair daily, when necessary albuterol, Pulmicort 0.5 mg twice a day prednisone 40 mg by mouth daily 12. GI prophylaxis 13. DVT prophylaxis 14. Chronic constipation, [place]-Colace 200 mg daily started 15. Diabetes mellitus type 2, insulin requiring, uncontrolled with hyperglycemia secondary to steroids. NovoLog 7030 will be increased to 22 units twice daily. Continue NovoLog scale. Discharge plan: on Sunday Impression and plan of care have been directed as dictated by the signing physician. Quyen Ahn nurse practitioner acting as scribe for signing physician.
[2018-09-28 17:35] LABS: Glucose,Whole Blood 316 mg/dL (75-99)
[2018-09-28 20:20] LABS: Glucose,Whole Blood 279 mg/dL (75-99)
[2018-09-28] MEDS: PRAVASTATIN SODIUM 80 MG TAB PO SCH (21:00)
[2018-09-28] MEDS: PREGABALIN 75 MG CAP PO SCH (21:00)
[2018-09-28] MEDS: MONTELUKAST 10 MG TAB PO SCH (21:00)
[2018-09-29] MEDS: BUTALB/APAP/CAFF 50-325-40MG TAB PO PRN ×2 (00:44→13:43)
[2018-09-29 07:32] LABS: Glucose,Whole Blood 128 mg/dL (75-99)
[2018-09-29] MEDS: BUDESONIDE 0.5 MG/2 ML NEBU INHALATION SCH ×2 (07:58→19:31)
[2018-09-29] MEDS: IPRATROPIUM-ALBUTEROL 3 ML NEB INHALATION SCH ×3 (08:00→19:31)
[2018-09-29] MEDS: AZITHROMYCIN 500 MG TAB PO SCH (08:16)
[2018-09-29] MEDS: CEVIMELINE 30 MG CAP PO SCH ×3 (08:16→21:42)
[2018-09-29] MEDS: DULoxetine HCL 60 MG CAPSULE.DR PO SCH ×2 (08:16→21:42)
[2018-09-29] MEDS: INSULIN ASPART 100 UNIT/ML 1 ML 10 ML VIAL SQ SCH ×3 (08:16→16:59)
[2018-09-29] MEDS: ENOXAPARIN 40 MG/0.4 ML SYRINGE SQ SCH (08:16)
[2018-09-29] MEDS: amLODIPine 5 MG TAB PO SCH ×2 (08:16→21:43)
[2018-09-29] MEDS: INSULN ASP PRT/INSULIN ASPART 100 UNIT/ML 10 ML VIAL SQ SCH (08:16)
[2018-09-29] MEDS: predniSONE 20 MG TAB PO SCH (08:17)
[2018-09-29] MEDS: SENNOSIDES-DOCUSATE SODIUM 1 EACH TAB PO SCH (08:17)
[2018-09-29] MEDS: FLUTICASONE 50MCG/SPRAY NASAL 16GM EA NOSTRIL SCH ×2 (08:17→21:43)
[2018-09-29] MEDS: NALDEMEDINE TOSYLATE 0.2 MG PO SCH (08:17)
[2018-09-29 09:04] LABS: Basophils # (A) 0.1 k/uL (0-0.2); Basophils % (A) 1 %; Eosinophils # (A) 0.1 k/uL (0-0.7); Eosinophils % (A) 1 %; HCT 38.4 % (34.0-46.0); HGB 12.4 gm/dL (11.4-16.0); Lymphocytes # (A) 3.9 k/uL (1.0-4.8); Lymphocytes % (A) 45 %; MCH 30.1 pg (25.0-35.0); MCHC 32.3 g/dL (31.0-37.0); MCV 93.1 fL (80.0-100.0); Mean Platelet Volume 8.4; Monocytes # (A) 0.5 k/uL (0-1.0); Monocytes % (A) 6 %; Neutrophils # (A) 3.9 k/uL (1.3-7.7); Neutrophils % (A) 45 %; Platelet Count 180 k/uL (150-450); RBC 4.13 m/uL (3.80-5.40); RDW 13.4 % (11.5-15.5); WBC 8.6 k/uL (3.8-10.6)
[2018-09-29 11:38] LABS: Glucose,Whole Blood 163 mg/dL (75-99)
[2018-09-29] MEDS: PANTOPRAZOLE 40 MG TABLET PO SCH (13:43)
--- NOTE | 2018-09-29 16:11 | P.PN ---
Subjective This is a 68-year-old pleasant female known to my practice, known history of diabetes mellitus type 2, fibromyalgia pain, chronic pain, asthma, number impairment, hypothyroidism, Sjogren's, migraines, admitted to the emergency room secondary to weakness. Patient also has cough, and sweats, chills, constipation, has been forgetting more, patient has some low-grade fever, and had fallen down while walking over to the bathroom. Patient tripped over a garbage that is in the bedroom, and patient is blaming the for all the difficulties in her life. She also relies on the to provide medications for her to be compliant as she does forget a lot specially possibly duplicating her medications. She is on narcotics twice a day, [place]. 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 She also has some cough, nonproductive. This of breath or shortness of breath and exertion, no aspirated events, no nausea no vomiting or diarrhea patient significantly constipated In emergency room chest x-ray that was done from reading shows right lower lobe pneumonia started on Rocephin and Zithromax apical spine x-rays secondary to trauma failed to reveal any acute dislocation, EKG shows normal sinus rhythm first degree AV block, incomplete bundle branch block, Q waves inferior leads we 're requesting an MRI of the cervical spine to evaluate for cervical myelopathy , secondary to progressive deterioration of what is suspected cervical myelopathy to be aggravated by pneumonia. Influenza test negative, lactic acid level I.0. Patient is treated for community-acquired pneumonia, with consults to physical therapy occupational therapy 09/27: Patient was quite confused during the night and continues to be somewhat confused but improved this morning. She is scheduled for MRI of the C-spine today. She is complaining of headache in the back of her head in the occipital region and down into her neck. We will consult Dr. Jerez for occipital nerve block. Echocardiogram has been done and report is pending. She continues to have wheezing for which Solu-Medrol will remain at 40 mg every 8 hours and scheduled DuoNeb treatments ordered. Patient is are on Pulmicort twice daily. IV fluids changed to saline lock. 09/28: Patient sitting up in the chair today. does not appear to have any confusion, she is able to answer questions appropriately. Patient states that her headache is better that she only has some pain with movement. She also is feeling that she is breathing better. She does complain of some wheezes. Cervical MRI showed no suspicious disc bulges herniations or stenosis. 09/29: Patient does not have any confusion today she is answering questions appropriately. Patient states that she is feeling better she has been able to tolerate oral foods. She is not having any difficulty breathing. Patient denies nausea, vomiting, diarrhea patient remained afebrile and vital signs are stable. Review Of Systems: Constitutional: No fever, no chills, no night sweats. No weight change. Complains of weakness, fatigue or lethargy. No daytime sleepiness. EENT: Complains of headache. No blurred vision or double vision, no loss of vision. No loss of Hearing, no ringing in the ears, no dizziness. No nasal drainage or congestion. No epistaxis. No sore throat. Lungs: Complains of shortness of breath, cough, no sputum production. Complains of wheezing. Cardiovascular: No chest pain, no lower extremity edema. No palpitations. No paroxysmal nocturnal dyspnea. No orthopnea. No lightheadedness or dizziness. No syncopal episodes. Abdominal: No abdominal pain. No nausea, vomiting. No diarrhea. No constipation. No bloody or tarry stools.. No loss of appetite. Genitourinary: No dysuria, increased frequency, urgency. No urinary retention. Musculoskeletal: No myalgias. Complains of muscle weakness, complains of gait dysfunction. No back pain. Complains of neck pain. Integumentary: No wounds, no lesions. No rash or pruritus. No unusual bruising. No change in hair or nails. Neurologic: No aphasia. No facial droop. No change in mentation. No head injury. No headache. No paralysis. No paresthesia. Psychiatric: No depression. No anxiety. No mood swings. Endocrine: No abnormal blood sugars. No weight change. No excessive sweating or thirst. No cold intolerance. Objective - Vital Signs Vital signs: Vital Signs Temp 97.3 F L 09/29/18 15:00 Pulse 65 09/29/18 15:00 Resp 18 09/29/18 15:00 BP 138/71 09/29/18 15:00 Pulse Ox 97 09/29/18 15:00 Intake & Output 09/28/18 09/29/18 09/29/18 18:59 06:59 18:59 Other: # Voids 3 3 4 - Constitutional General appearance: Present: cooperative, no acute distress, obese - EENT Eyes: Present: anicteric sclerae, EOMI, PERRLA ENT: Present: hearing grossly normal - Neck Neck: Present: normal ROM. Absent: lymphadenopathy, rigidity - Respiratory Respiratory: bilateral: CTA, negative: diminished, dullness, rales, rhonchi, wheezing - Cardiovascular Rhythm: regular Heart sounds: normal: S1, S2 Abnormal Heart Sounds: Absent: systolic murmur, diastolic murmur, rub, S3 Gallop , S4 Gallop, click, other - Gastrointestinal General gastrointestinal: Present: normal bowel sounds, soft. Absent: organomegaly, tenderness - Integumentary Integumentary: Present: normal turgor - Neurologic Neurologic: Present: CNII-XII intact - Musculoskeletal Musculoskeletal: Present: gait normal, generalized weakness, strength equal bilaterally - Psychiatric Psychiatric: Present: A&O x's 3, appropriate affect, intact judgment & insight - Labs CBC & Chem 7: 09/29/18 08:26 09/28/18 09:29 Labs: Abnormal Lab Results - Last 24 Hours (Table) 09/28/18 09/28/18 09/29/18 Range/Units 17:13 20:18 07:29 POC Glucose (mg/dL) 316 H 279 H 128 H (75-99) mg/dL 09/29/18 Range/Units 11:28 POC Glucose (mg/dL) 163 H (75-99) mg/dL Microbiology - Last 24 Hours (Table) 09/25/18 22:40 Blood Culture - Preliminary Blood No Growth after 72 hours Assessment and Plan Plan: 1. Right lower lobe pneumonia with metabolic encephalopathy, increasing progressive weakness, shortness of breath echocardiogram patient is treated with community acquired pneumonia protocol with Rocephin and Zithromax, we would attempt to obtain sputum cultures, blood cultures are showing no growth. Continue DuoNeb treatments scheduled and as needed as well as Pulmicort twice daily, redness around 40 mg daily 2. Fibromyalgia with chronic pain, patient has cervical disc disease and lumbar disc disease last MRI was 2015, however in view off increasing weakness of the upper extremity, cervical myelopathy needs to be ruled out, cervical MRI shows no disc bulging, herniation, or stenosis. Continue Cymbalta 60 mg twice a day, keep nor call twice a day, we'll going to decrease Lyrica to 150 mg daily secondary to weakness and memory impairment and confusion. Decreased Zanaflex 5 mg 3 times a day. Ibuprofen 400 mg every 4 hours as needed for pain 3. Impaired balance and gait, recurrent falls, patient would have an MRI as recommended above cervical spine, patient will be seen by physical therapy and occupational therapy 4. Sjogren syndrome, patient is on Evoxac 30 mg 3 times a day no changes made 5. Chronic insomnia, underlying sleep apnea cannot be ruled out, trazodone would be discontinued for now secondary to weakness, orthostatic vitals to be done 6. Impaired balance and gait pre-existing, patient requires walker for community ambulation was PT OT 7. Neurocognitive deficits with short-term memory impairment, was likely secondary to poor sleep efficiency, sleep hygiene is recommended, CAT scan failed to reveal any acute CVA changes or chronic CVA changes were going to decrease the cut to 150 mg at bedtime, decreased Flexeril to 5 mg 3 times a day, 8. Dysthymia, chronic helplessness at home, patient depends on the for medication compliance and everything else including home cleaning and meal preparation. 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 CKD stage I 10. Occipital neuralgia. Consult with Dr. Brar for occipital nerve block 11. Mild intermittent asthma exacerbation, on Singulair daily, when necessary albuterol, Pulmicort 0.5 mg twice a day prednisone 40 mg by mouth daily 12. GI prophylaxis 13. DVT prophylaxis 14. Chronic constipation, [place]-Colace 200 mg daily started 15. Diabetes mellitus type 2, insulin requiring, uncontrolled with hyperglycemia secondary to steroids. NovoLog 7030 will be increased to 25 units in the a.m. and 20 units in the evening. Continue NovoLog scale. Discharge plan: on Sunday Impression and plan of care have been directed as dictated by the signing physician. Quyen Ahn nurse practitioner acting as scribe for signing physician.
[2018-09-29 16:51] LABS: Glucose,Whole Blood 333 mg/dL (75-99)
--- NOTE | 2018-09-29 17:16 | P.PN ---
Subjective Progress Note Date: 09/29/18 Principal diagnosis: Right lower lobe community-acquired pneumonia, occipital headache and facial headache, fibromyalgia with exacerbation, Sjogren syndrome, sleep disorder breathing and sleep apnea 09/29/2018, patient seen and evaluated examined during the rounds clinically doing slightly better cough congestion shortness breath is slightly better still have intermittent headache labs reviewed medications reviewed care plan discussed with the patient at length 68-year-old female seen eval examined in the medical unit patient has been admitted to hospital with the problem associated with generalized weakness also has ongoing issues acidic cough sweats chills and not feeling well she has been found to have right-sided pneumonia patient is being treated broad-spectrum antibiotics, influenza swab have been negative, patient has significant occipital headache pain anesthesia service has been consulted labs reviewed medications reviewed radiographic studies reviewed as well Objective - Vital Signs Vital signs: Vital Signs Temp 97.3 F L 09/29/18 15:00 Pulse 65 09/29/18 15:00 Resp 18 09/29/18 15:00 BP 138/71 09/29/18 15:00 Pulse Ox 97 09/29/18 15:00 Intake & Output 09/28/18 09/29/18 09/29/18 18:59 06:59 18:59 Other: # Voids 3 3 4 - Exam - Constitutional General appearance: average body habitus, cooperative, disheveled, mild distress , obese - EENT Eyes: EOMI, PERRLA, poor dentition, normal appearance ENT: hard of hearing, normal oropharynx Ears: bilateral: normal - Neck Carotids: bilateral: upstroke normal - Respiratory Respiratory: bilateral: diminished, rales, prolonged expiration, negative: dullness, rhonchi, wheezing - Cardiovascular Rhythm: regular Heart sounds: normal: S1, S2 - Gastrointestinal General gastrointestinal: decreased bowel sounds, distended, soft - Integumentary Integumentary: normal turgor - Neurologic Neurologic: CNII-XII intact - Musculoskeletal Musculoskeletal: gait normal, generalized weakness, strength equal bilaterally - Psychiatric Psychiatric: A&O x's 3, appropriate affect, intact judgment & insight - Labs CBC & Chem 7: 09/29/18 08:26 09/28/18 09:29 Labs: Abnormal Lab Results - Last 24 Hours (Table) 09/28/18 09/28/18 09/29/18 Range/Units 17:13 20:18 07:29 POC Glucose (mg/dL) 316 H 279 H 128 H (75-99) mg/dL 09/29/18 09/29/18 Range/Units 11:28 16:48 POC Glucose (mg/dL) 163 H 333 H (75-99) mg/dL Microbiology - Last 24 Hours (Table) 09/25/18 22:40 Blood Culture - Preliminary Blood No Growth after 72 hours Assessment and Plan Assessment: Right lower lobe pneumonia community-acquired Severe occipital headache and facial headache Fibromyalgia Sjogren syndrome Possible sleep disorder breathing and sleep apnea along with the history of chronic insomnia Morbid obesity Plan: Broad-spectrum antibiotics Increase activity as tolerated Agree for occipital block Patient will require a polysomnogram on outpatient setting Further recommendations pending plan of care as per clinical response of patient Time with Patient: Greater than 30
[2018-09-29] MEDS ORDERED: INSULN ASP PRT/INSULIN ASPART 100 UNIT/ML 10 ML VIAL SQ SCH (17:30)
[2018-09-29 20:56] LABS: Glucose,Whole Blood 190 mg/dL (75-99)
[2018-09-29] MEDS: PRAVASTATIN SODIUM 80 MG TAB PO SCH (21:42)
[2018-09-29] MEDS: MONTELUKAST 10 MG TAB PO SCH (21:42)
[2018-09-29] MEDS: PREGABALIN 75 MG CAP PO SCH (21:45)
[2018-09-29] MEDS: HYDROcodone/APAP 10-325MG 1 EACH TAB PO PRN (21:53)
[2018-09-30 05:51] VITALS: RESP 20
[2018-09-30 07:16] LABS: Glucose,Whole Blood 126 mg/dL (75-99)
[2018-09-30] MEDS: INSULIN ASPART 100 UNIT/ML 1 ML 10 ML VIAL SQ SCH ×2 (07:18→12:47)
[2018-09-30] MEDS ORDERED: INSULN ASP PRT/INSULIN ASPART 100 UNIT/ML 10 ML VIAL SQ SCH (07:30)
[2018-09-30 07:54] VITALS: BP 145/69; TEMP 96.7
[2018-09-30] MEDS: amLODIPine 5 MG TAB PO SCH (08:02)
[2018-09-30] MEDS: DULoxetine HCL 60 MG CAPSULE.DR PO SCH (08:02)
[2018-09-30] MEDS: CEVIMELINE 30 MG CAP PO SCH (08:02)
[2018-09-30] MEDS: AZITHROMYCIN 500 MG TAB PO SCH (08:02)
[2018-09-30] MEDS: ENOXAPARIN 40 MG/0.4 ML SYRINGE SQ SCH (08:02)
[2018-09-30] MEDS: NALDEMEDINE TOSYLATE 0.2 MG PO SCH (08:03)
[2018-09-30] MEDS: SENNOSIDES-DOCUSATE SODIUM 1 EACH TAB PO SCH (08:03)
[2018-09-30] MEDS: PANTOPRAZOLE 40 MG TABLET PO SCH (08:03)
[2018-09-30] MEDS: predniSONE 20 MG TAB PO SCH (08:03)
[2018-09-30] MEDS: BUDESONIDE 0.5 MG/2 ML NEBU INHALATION SCH (08:44)
[2018-09-30] MEDS: IPRATROPIUM-ALBUTEROL 3 ML NEB INHALATION SCH ×2 (08:44→12:06)
[2018-09-30] MEDS: FLUTICASONE 50MCG/SPRAY NASAL 16GM EA NOSTRIL SCH (09:00)
--- NOTE | 2018-09-30 09:47 | P.DS ---
Providers Date of admission: 09/27/18 18:54 Expected date of discharge: 09/30/18 Attending physician: Jessica Castillo Consults: 09/27/18 11:26 Consult Physician Routine Consulting Provider: Dhruv Brar Consult Reason/Comments: occipital nerve block Do you want consulting provider notified?: Yes 09/27/18 11:29 Consult Physician Routine Consulting Provider: Stef Herrera Consult Reason/Comments: asthma Do you want consulting provider notified?: Yes Primary care physician: Jessica Castillo [facility] Course: This is a 68-year-old pleasant female patient of Dr. Castillo, known history of diabetes mellitus type 2, fibromyalgia pain, chronic pain, asthma, number impairment, hypothyroidism, Sjogren's, migraines, admitted to the emergency room secondary to weakness. Patient also has cough, and sweats, chills, constipation, has been forgetting more, patient has some low-grade fever, and had fallen down while walking over to the bathroom. Patient tripped over a garbage that is in the bedroom, and patient is blaming the for all the difficulties in her life. She also relies on the to provide medications for her to be compliant as she does forget a lot specially possibly duplicating her medications. She is on narcotics twice a day, [place]. 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 She also has some cough, nonproductive. This of breath or shortness of breath and exertion, no aspirated events, no nausea no vomiting or diarrhea patient significantly constipated In emergency room chest x-ray that was done from reading shows right lower lobe pneumonia started on Rocephin and Zithromax apical spine x-rays secondary to trauma failed to reveal any acute dislocation, EKG shows normal sinus rhythm first degree AV block, incomplete bundle branch block, Q waves inferior leads we 're requesting an MRI of the cervical spine to evaluate for cervical myelopathy , secondary to progressive deterioration of what is suspected cervical myelopathy to be aggravated by pneumonia. Influenza test negative, lactic acid level I.0. Patient is treated for community-acquired pneumonia, with consults to physical therapy occupational therapy 09/27: Patient was quite confused during the night and continues to be somewhat confused but improved this morning. She is scheduled for MRI of the C-spine today. She is complaining of headache in the back of her head in the occipital region and down into her neck. We will consult Dr. Jerez for occipital nerve block. Echocardiogram has been done and report is pending. She continues to have wheezing for which Solu-Medrol will remain at 40 mg every 8 hours and scheduled DuoNeb treatments ordered. Patient is are on Pulmicort twice daily. IV fluids changed to saline lock. 09/28: Patient sitting up in the chair today. does not appear to have any confusion, she is able to answer questions appropriately. Patient states that her headache is better that she only has some pain with movement. She also is feeling that she is breathing better. She does complain of some wheezes. Cervical MRI showed no suspicious disc bulges herniations or stenosis. 09/29: Patient does not have any confusion today she is answering questions appropriately. Patient states that she is feeling better she has been able to tolerate oral foods. She is not having any difficulty breathing. Patient denies nausea, vomiting, diarrhea patient remained afebrile and vital signs are stable. 09/30: Patient has undergone bilateral occipital nerve block today and pain is improved. No shortness of breath. Patient will be transferred to [facility] today in stable condition once all arrangements are completed. Discharge diagnoses: 1. Right lower lobe pneumonia with metabolic encephalopathy 2. Fibromyalgia with chronic pain, patient has cervical disc disease and lumbar disc disease 3. Impaired balance and gait, recurrent falls 4. Sjogren syndrome 5. Chronic insomnia, underlying sleep apnea cannot be ruled out 6. Impaired balance and gait pre-existing, patient requires walker for community ambulation 7. Neurocognitive deficits with short-term memory impairment, was likely secondary to poor sleep efficiency, sleep hygiene is recommended 8. Dysthymia, chronic helplessness at home 9. CKD stage I 10. Occipital neuralgia. 11. Mild intermittent asthma exacerbation 12. Chronic constipation 13. Diabetes mellitus type 2, insulin requiring, uncontrolled with hyperglycemia secondary to steroids. Discharge plan: [facility] on Sunday Impression and plan of care have been directed as dictated by the signing physician. Thea Lemus nurse practitioner acting as scribe for signing physician. Patient Condition at Discharge: Good Plan - Discharge Summary New Discharge Prescriptions: New Azithromycin [Zithromax] 500 mg PO DAILY #3 tab Budesonide [Pulmicort] 0.5 mg INHALATION RT-BID nebu Cyclobenzaprine [Flexeril] 5 mg PO TID PRN tab PRN Reason: Muscle Spasm Ibuprofen [Motrin] 400 mg PO Q4HR PRN tab PRN Reason: Pain Insulin Aspart [NovoLOG (formulary)] 0 unit SQ AC-TID vial Insuln Asp Prt/Insulin Aspart [NovoLOG MIX 70-30 VIAL] 25 unit SQ AC-BRKFST vial Insuln Asp Prt/Insulin Aspart [NovoLOG MIX 70-30 VIAL] 20 unit SQ AC-SUPPER vial Ipratropium-Albuterol Nebulize [Duoneb 0.5 mg-3 mg/3 ml Soln] 3 ml INHALATION RT-TID ampul.neb predniSONE 0 mg PO DIRECTED #40 tab Pregabalin [Lyrica] 150 mg PO HS #60 cap Continue Montelukast [Singulair] 10 mg PO HS Cevimeline [Evoxac] 30 mg PO TID Levothyroxine Sodium [Synthroid] 75 mcg PO DAILY Lansoprazole [Prevacid] 30 mg PO PC-LUNCH amLODIPine [Norvasc] 5 mg PO BID Pravastatin Sodium [Pravachol] 80 mg PO HS DULoxetine HCL [Cymbalta] 60 mg PO BID Sennosides-Docusate Sodium [Senokot-S] 2 tab PO DAILY Naldemedine Tosylate [Symproic] 0.2 mg PO DAILY Fluticasone Nasal Opal [Flonase Nasal Opal] 1 spray EA NOSTRIL BID Butalb/Acetaminophen/Caffeine [Fioricet 50-325-40] 2 tab PO Q4H PRN #12 tablet PRN Reason: Migraine Headache HYDROcodone/APAP 10-325MG [[place] 10-325] 1 each PO BID PRN #6 tab PRN Reason: Pain Discontinued Metaxalone [Skelaxin] 800 mg PO TID Meloxicam [Mobic] 7.5 mg PO DAILY Insulin Lispro Protamin/Lispro [humaLOG Mix 75-25 Kwikpen] 18 units INJ BID Pregabalin [Lyrica] 225 mg PO DAILY Doxepin [SINEquan] 10 mg PO HS Discharge Medication List Cevimeline [Evoxac] 30 mg PO TID 03/06/18 [History] DULoxetine HCL [Cymbalta] 60 mg PO BID 03/06/18 [History] Lansoprazole [Prevacid] 30 mg PO PC-LUNCH 03/06/18 [History] Levothyroxine Sodium [Synthroid] 75 mcg PO DAILY 03/06/18 [History] Montelukast [Singulair] 10 mg PO HS 03/06/18 [History] Pravastatin Sodium [Pravachol] 80 mg PO HS 03/06/18 [History] amLODIPine [Norvasc] 5 mg PO BID 03/06/18 [History] Fluticasone Nasal [place]al [Flonase Nasal Opal] 1 spray EA NOSTRIL BID 09/25/18 [ History] Naldemedine Tosylate [Symproic] 0.2 mg PO DAILY 09/25/18 [History] Sennosides-Docusate Sodium [Senokot-S] 2 tab PO DAILY 09/25/18 [History] Azithromycin [Zithromax] 500 mg PO DAILY #3 tab 09/30/18 [Rx] Budesonide [Pulmicort] 0.5 mg INHALATION RT-BID nebu 09/30/18 [Rx] Butalb/Acetaminophen/Caffeine [Fioricet 50-325-40] 2 tab PO Q4H PRN #12 tablet 09/30/18 [Rx] Cyclobenzaprine [Flexeril] 5 mg PO TID PRN tab 09/30/18 [Rx] HYDROcodone/APAP 10-325MG [[place] 10-325] 1 each PO BID PRN #6 tab 09/30/18 [Rx] Ibuprofen [Motrin] 400 mg PO Q4HR PRN tab 09/30/18 [Rx] Insulin Aspart [NovoLOG (formulary)] 0 unit SQ AC-TID vial 09/30/18 [Rx] Insuln Asp Prt/Insulin Aspart [NovoLOG MIX 70-30 VIAL] 20 unit SQ AC-SUPPER vial 09/30/18 [Rx] Insuln Asp Prt/Insulin Aspart [NovoLOG MIX 70-30 VIAL] 25 unit SQ AC-BRKFST vial 09/30/18 [Rx] Ipratropium-Albuterol Nebulize [Duoneb 0.5 mg-3 mg/3 ml Soln] 3 ml INHALATION RT -TID ampul.neb 09/30/18 [Rx] Pregabalin [Lyrica] 150 mg PO HS #60 cap 09/30/18 [Rx] predniSONE 0 mg PO DIRECTED #40 tab 09/30/18 [Rx] Follow up Appointment(s)/Referral(s): Stef Herrera MD [STAFF PHYSICIAN] - 1 Week Jessica Castillo MD [Primary Care Provider] - 1 Week (After discharge from [facility]) Discharge/Stand Alone Forms: [facility] Diary, [facility] Instructions Discharge Disposition: TRANSFER TO SNF/ECF
--- NOTE | 2018-09-30 10:50 | P.GSHP ---
History of Present Illness H&P Date: 09/30/18 This is 68 years old female who was admitted to [facility] because of generalized weakness , and found that she had pneumonia, and patient was treated with antibiotics also patient had a history of severe headache and she's been diagnosed with occipital neuralgia, patient had occipital nerve block in the past and she had a good result, and currently she complained of severe intractable headache localized in the base of the skull ,and radiated to the top of the head and exaggerated with the neck movementthe Past Medical History Past Medical History: Asthma, Diabetes Mellitus, GERD/Reflux, Hyperlipidemia, Hypertension, Memory Impairment, Neurologic Disorder, Thyroid Disorder Additional Past Medical History / Comment(s): DIVERTICULITIS , SJOGRENS, MIGRAINES, 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 SINUS SX Past Anesthesia/Blood Transfusion Reactions: Motion Sickness, Postoperative Nausea & Vomiting (PONV) Past Psychological History: Anxiety, Depression Smoking Status: Never smoker Past Alcohol Use History: None Reported Additional Past Alcohol Use History / Comment(s): QUIT SMOKING-1977 Past Drug Use History: None Reported - Past Family History Mother History Unknown: Yes Family Medical History: Cancer Father Family Medical History: No Reported History Daughter(s) Family Medical History: No Reported History Medications and Allergies Home Medications Medication Instructions Recorded Confirmed Type Cevimeline [Evoxac] 30 mg PO TID 03/06/18 09/25/18 History DULoxetine HCL [Cymbalta] 60 mg PO BID 03/06/18 09/25/18 History Lansoprazole [Prevacid] 30 mg PO PC-LUNCH 03/06/18 09/25/18 History Levothyroxine Sodium [Synthroid] 75 mcg PO DAILY 03/06/18 09/25/18 History Montelukast [Singulair] 10 mg PO HS 03/06/18 09/25/18 History Pravastatin Sodium [Pravachol] 80 mg PO HS 03/06/18 09/25/18 History amLODIPine [Norvasc] 5 mg PO BID 03/06/18 09/25/18 History Doxepin [SINEquan] 10 mg PO HS 09/25/18 09/25/18 History Fluticasone Nasal [place] [Flonase 1 spray EA NOSTRIL BID 09/25/18 09/25/18 History Nasal [place]] Naldemedine Tosylate [Symproic] 0.2 mg PO DAILY 09/25/18 09/25/18 History Sennosides-Docusate Sodium 2 tab PO DAILY 09/25/18 09/25/18 History [Senokot-S] Azithromycin [Zithromax] 500 mg PO DAILY #3 tab 09/30/18 Rx Budesonide [Pulmicort] 0.5 mg INHALATION RT-BID nebu 09/30/18 Rx Butalb/Acetaminophen/Caffeine 2 tab PO Q4H PRN #12 tablet 09/30/18 Rx [Fioricet 50-325-40] Cyclobenzaprine [Flexeril] 5 mg PO TID PRN tab 09/30/18 Rx HYDROcodone/APAP 10-325MG [[place] 1 each PO BID PRN #6 tab 09/30/18 Rx 10-325] Ibuprofen [Motrin] 400 mg PO Q4HR PRN tab 09/30/18 Rx Insulin Aspart [NovoLOG 0 unit SQ AC-TID vial 09/30/18 Rx (formulary)] Insuln Asp Prt/Insulin Aspart 20 unit SQ AC-SUPPER vial 09/30/18 Rx [NovoLOG MIX 70-30 VIAL] Insuln Asp Prt/Insulin Aspart 25 unit SQ AC-BRKFST vial 09/30/18 Rx [NovoLOG MIX 70-30 VIAL] Ipratropium-Albuterol Nebulize 3 ml INHALATION RT-TID ampul.neb 09/30/18 Rx [Duoneb 0.5 mg-3 mg/3 ml Soln] Pregabalin [Lyrica] 150 mg PO HS #60 cap 09/30/18 Rx predniSONE 0 mg PO DIRECTED #40 tab 09/30/18 Rx Allergies Allergy/AdvReac Type Severity Reaction Status Date / Time prochlorperazine Allergy Itching Verified 09/25/18 18:18 [From Compazine] Sulfa (Sulfonamide Allergy Unknown Verified 09/25/18 18:32 Antibiotics) codeine AdvReac Unknown Verified 09/25/18 18:32 Surgical - Exam Vital Signs Temp Pulse Resp BP Pulse Ox 97.8 F 66 16 154/80 97 09/25/18 18:11 09/25/18 18:11 09/25/18 18:11 09/25/18 18:11 09/25/18 18:11 Physical Examinations : 1-Constitutiona : Cooperative , not in acute distress . 2-HEENT : nech ; supple , no Lymphadenopathy , normal thyroid size . eyes : no ptosis , no icterus, no photophobia . ENT : normal of hearing , normal oropharynx , no Thrush . 3- Respiratory : Chest clear to auscultations Bilaterally , no wheezing , no Rhonchi . 4- Cardiovascular : regular rate and rhythem , S1 , S2 , no S3 , no S4. 5- Gastrointestinal : abdomen soft no tenderness , bowel sounds , no organomegally . 6- Genitourinary : Defferred . 7- neurologic : Cranial nerve II to XII intact , no focal neurological deffecit . 8-psychatric : alert , oriented X 3 , appropriate affect , intact judgment and insight . 9-Lymphatic : no Lymphadenopathy . 10- musculoskeltal : Cervical Spine motor stregnth in the deltoid and biceps, normal right side , normal Left side motor stregnth biceps and the wrist extensors normal right side ,normal left side . motor stregnth in the triceps muscle . normal Right side , normal Left side deep tendon reflexes normal at the biceps , normal at Brachioradialis , normal at triceps. positive cervical facet loading test Severe tenderness over the occipital nerves Bilaterally Results - Labs 09/29/18 08:26 09/28/18 09:29 Abnormal Lab Results - Last 24 Hours (Table) 09/29/18 09/29/18 09/29/18 Range/Units 11:28 16:48 20:53 POC Glucose (mg/dL) 163 H 333 H 190 H (75-99) mg/dL 09/30/18 Range/Units 07:10 POC Glucose (mg/dL) 126 H (75-99) mg/dL Microbiology - Last 24 Hours (Table) 09/25/18 22:40 Blood Culture - Preliminary Blood No Growth after 96 hours Assessment and Plan Assessment: Assessment and plan= bilateral occipital neuralgia ,patient will be good candidate to have bilateral occipital nerve block Time with Patient: Less than 30
--- NOTE | 2018-09-30 10:51 | P.PCN ---
Date of Procedure: 09/30/18 Procedure(s) Performed: Preoperative diagnoses= 1- Greater occipital neuralgia Postoperative diagnoses= same as preoperative diagnosis. Procedure= Bilateral Greater occipital nerve block Anesthesia= moderate sedation with fentanyl 50 micrograms . Estimated blood loss=minimal. Procedure indication= the patient had a history of severe chronic neck pain , and headache, diagnosed with occipital neuralgia exam was positive for severe tenderness over the occipital nerve bilaterally, she will be a good candidate occipital nerve block, patient failed conservative management Procedure description= the patient was seen and identified in the preoperative holding area, risks and benefits and alternative of the procedure and possible complications discussed with the patient, and he agreed with the preceding, patient signed the consent, an IV was started, and vital signs were monitored and were stable throughout the procedure, patient was placed in the sitting position or table and the neck area was prepped and draped with a sterile fashion, vital signs were closely monitored during the procedure, 25-gauge needle advanced 1 inch lateral to the occipital protuberance on the right side , at the location of the right occipital nerve , then after negative aspiration for heme and CSF and there was no paresthesia during the injection, 5 ml of Robivacaine 0.5% and 20 mg of Kenalog injected after negative aspiration, the needle removed, and the entire same procedure was repeated for the left Greater occipital nerve. Patient tolerated the procedure well without any complication, The patient returned to supine position after the back was cleaned and a Band- Aid applied, the patient transported to recovery room in stable condition and he was monitored for 30 minutes before he was discharged home and then patient was reexamined before going home and patient was discharged in stable condition and patient will follow up with the pain clinic in a few weeks.
--- NOTE | 2018-09-30 11:18 | P.PN ---
Subjective Progress Note Date: 09/30/18 Principal diagnosis: Right lower lobe community-acquired pneumonia, occipital headache and facial headache, fibromyalgia with exacerbation, Sjogren syndrome, sleep disorder breathing and sleep apnea 09/30/2018, patient seen eval reexamined during the rounds clinically patient has been doing better in terms of breathing cuff congestion shortness breath is improved, patient is status post bilateral occipital nerve block by pain management 09/29/2018, patient seen and evaluated examined during the rounds clinically doing slightly better cough congestion shortness breath is slightly better still have intermittent headache labs reviewed medications reviewed care plan discussed with the patient at length 68-year-old female seen eval examined in the medical unit patient has been admitted to hospital with the problem associated with generalized weakness also has ongoing issues acidic cough sweats chills and not feeling well she has been found to have right-sided pneumonia patient is being treated broad-spectrum antibiotics, influenza swab have been negative, patient has significant occipital headache pain anesthesia service has been consulted labs reviewed medications reviewed radiographic studies reviewed as well Objective - Vital Signs Vital signs: Vital Signs Temp 96.7 F L 09/30/18 07:21 Pulse 74 09/30/18 07:21 Resp 20 09/30/18 07:21 BP 145/69 09/30/18 07:21 Pulse Ox 97 09/30/18 07:21 Intake & Output 09/29/18 09/30/18 09/30/18 18:59 06:59 18:59 Other: # Voids 4 3 # Bowel Movements 0 - Exam - Constitutional General appearance: average body habitus, cooperative, disheveled, mild distress , obese - EENT Eyes: EOMI, PERRLA, poor dentition, normal appearance ENT: hard of hearing, normal oropharynx Ears: bilateral: normal - Neck Carotids: bilateral: upstroke normal - Respiratory Respiratory: bilateral: diminished, rales, prolonged expiration, negative: dullness, rhonchi, wheezing - Cardiovascular Rhythm: regular Heart sounds: normal: S1, S2 - Gastrointestinal General gastrointestinal: decreased bowel sounds, distended, soft - Integumentary Integumentary: normal turgor - Neurologic Neurologic: CNII-XII intact - Musculoskeletal Musculoskeletal: gait normal, generalized weakness, strength equal bilaterally - Psychiatric Psychiatric: A&O x's 3, appropriate affect, intact judgment & insight - Labs CBC & Chem 7: 09/29/18 08:26 09/28/18 09:29 Labs: Abnormal Lab Results - Last 24 Hours (Table) 09/29/18 09/29/18 09/29/18 Range/Units 11:28 16:48 20:53 POC Glucose (mg/dL) 163 H 333 H 190 H (75-99) mg/dL 09/30/18 Range/Units 07:10 POC Glucose (mg/dL) 126 H (75-99) mg/dL Microbiology - Last 24 Hours (Table) 09/25/18 22:40 Blood Culture - Preliminary Blood No Growth after 96 hours Assessment and Plan Assessment: Right lower lobe pneumonia community-acquired Severe bilateral occipital headache and facial headache Fibromyalgia Sjogren syndrome Possible sleep disorder breathing and sleep apnea along with the history of chronic insomnia Morbid obesity Plan: Broad-spectrum antibiotics Increase activity as tolerated Status post occipital block Patient will require a polysomnogram on outpatient setting Further recommendations pending plan of care as per clinical response of patient Agree with discharge planning and follow-up in outpatient setting Time with Patient: Greater than 30
[2018-09-30 12:09] VITALS: PULSE 76
[2018-09-30 12:31] LABS: Glucose,Whole Blood 161 mg/dL (75-99)
== END 2018-09-30 14:41 | DRG 193 ==
LOC: EC 18:06 → 4MS4W 22:39 → OBSVTOIN 09-27 18:54
PROVIDERS: ADMIT Family Medicine; ATTEND Family Medicine
PROC: 3E0T33Z Introduction of Anti-inflammatory into Peripheral Nerves and Plexi, Percutaneous Approach (ICD-10-PCS; principal; 2018-09-30)
PROC: 3E0T3BZ Introduction of Anesthetic Agent into Peripheral Nerves and Plexi, Percutaneous Approach (ICD-10-PCS; principal; 2018-09-30)
DX: J18.9 Pneumonia, unspecified organism (principal); G93.41 Metabolic encephalopathy; J45.21 Mild intermittent asthma with (acute) exacerbation; E03.9 Hypothyroidism, unspecified; E11.22 Type 2 diabetes mellitus with diabetic chronic kidney disease; E11.65 Type 2 diabetes mellitus with hyperglycemia; E66.01 Morbid (severe) obesity due to excess calories; E78.5 Hyperlipidemia, unspecified; F34.1 Dysthymic disorder; F51.04 Psychophysiologic insomnia; G47.30 Sleep apnea, unspecified; G89.29 Other chronic pain; I12.9 Hypertensive chronic kidney disease with stage 1 through stage 4 chronic kidney disease, or unspecified chronic kidney disease; K21.9 Gastro-esophageal reflux disease without esophagitis; K59.09 Other constipation; M35.00 Sjogren syndrome, unspecified; M50.90 Cervical disc disorder, unspecified, unspecified cervical region; M51.9 Unspecified thoracic, thoracolumbar and lumbosacral intervertebral disc disorder; M54.81 Occipital neuralgia; M79.7 Fibromyalgia; N18.1 Chronic kidney disease, stage 1; R09.02 Hypoxemia; R29.6 Repeated falls; T38.0X5A Adverse effect of glucocorticoids and synthetic analogues, initial encounter; Z79.4 Long term (current) use of insulin; Z87.891 Personal history of nicotine dependence; Z90.710 Acquired absence of both cervix and uterus; Z79.899 Other long term (current) drug therapy; Z88.5 Allergy status to narcotic agent; Z88.2 Allergy status to sulfonamides; Z88.8 Allergy status to other drugs, medicaments and biological substances; Z90.49 Acquired absence of other specified parts of digestive tract; Z98.51 Tubal ligation status; G47.33 Obstructive sleep apnea (adult) (pediatric)
CPT/HCPCS: 36415; 70450; 71046; 72125; 72141; 72170; 80048; 80053; 81003; 82785; 83036; 83605; 83735; 84443; 84484; 85025; 85610; 85730; 87040; 87502; 93005; 93306; 94640; 94760; 96360; 96361; 96365; 99285

== ENCOUNTER 2018-10-16 08:01 | Day surgery (SDC) | payer MEDICARE, OTHER ==
[2018-10-15 11:12] VITALS: BMI 37.8
[~2018-10-16 08:01] MED LIST changes: -LACTATED RINGERS 1,000 ML IV SCH; +SODIUM CHLORIDE 0.9% 500 ML 500 ML IV SCH
[2018-10-16 08:44] VITALS: TEMP 97.9
[2018-10-16] MEDS ORDERED: LIDOCAINE 1% 20 ML VIAL (10MG/ML) FOR IV START INTRADERMA ONE (09:00)
[2018-10-16] MEDS ORDERED: LACTATED RINGERS 1,000 ML IV ONE (09:00)
[2018-10-16 09:07] LABS: Glucose,Whole Blood 138 mg/dL (75-99)
--- NOTE | 2018-10-16 09:24 | P.PCN ---
Date of Procedure: 10/16/18 Surgeon: Dhruv Rodriguez Description of Procedure: Pre-operative diagnosis: Bilateral occipital neuralgia Post Operative Diagnosis same Indication for procedure: This is a 68-year-old woman with a history of bilateral occipital neuralgia who presents today for repeat of bilateral occipital nerve block. Unfortunately, she is a poor historian with very significant memory problems and she is unable to recall even having this procedure done before much less whether it helped her. Her daughter is present with her today to assist with consent issues and describing medical history. I reviewed her records from her snf where she lives including her medications and ALLERGIES. Procedure: Bilateral occipital nerve block ANESTHESIA: none EBL: Minimal PROCEDURE INDICATION: The patient with neck pain and headache secondary to occipital neuralgia unresponsive to conservative treatments. PROCEDURE DESCRIPTION / TECHNIQUE: The patient was seen and identified in the preoperative area. Risks, benefits, complications, and alternatives were discussed with the patient, the patient agreed to proceed with the procedure and signed the consent. IV was started. Vital signs remained stable throughout the procedure. Patient was taken to the OR and time out was completed. The patient was placed in the seated position on the procedure table. The cervical area and right occiptial area were prepped with alcohol swab. Vital signs were closely monitored during the procedure. The right-sided occiptal ridge was palpated and was then accessed with a 25 G needle. Then after negative aspiration, 4 ml of the block solution containing 3 ml of Buvicaine 0.5% and Depo-Medrol 20 mg was injected. Needle was withdrawn intact. This procedure was then repeated on the left side. Patient tolerated procedure well. No acute complications.
[2018-10-16 10:11] LABS: Glucose,Whole Blood 158 mg/dL (75-99)
[2018-10-16] MEDS ORDERED: KETOROLAC 30 MG/ML 1 ML VIAL IVP ONE (10:40)
[2018-10-16 11:10] VITALS: BP 140/68; PULSE 68; RESP 20
[2018-10-16] MEDS ORDERED: IV FLUID CONTINUATION 1,000 ML IV ONE (11:10)
[2018-10-16] MEDS ORDERED: KETOROLAC 30 MG/ML 1 ML VIAL IVP STA (11:28)
== END 2018-10-16 11:20 | disposition home or self-care (01) ==
LOC: ORPAIN 08:01
PROVIDERS: ATTEND Pain Medicine Pain Medicine
DX: M54.81 Occipital neuralgia (principal); E11.9 Type 2 diabetes mellitus without complications; F32.9 Major depressive disorder, single episode, unspecified; R41.3 Other amnesia; Z88.5 Allergy status to narcotic agent; Z88.2 Allergy status to sulfonamides; Z88.8 Allergy status to other drugs, medicaments and biological substances
CPT/HCPCS: 64405; J1030; J1885

== ENCOUNTER 2020-10-21 22:45 | Inpatient (IN) | payer MEDICARE, OTHER ==
[2020-10-21] MEDS ORDERED: SODIUM CHLORIDE 0.9% 1,000 ML IV STA (22:47)
--- NOTE | 2020-10-21 22:49 | ED ---
Altered Mental Status HPI - General Stated Complaint: unresponsive Time Seen by Provider: 10/21/20 22:47 Source: RN notes reviewed, old records reviewed Mode of arrival: EMS - History of Present Illness Initial Comments: This is a 70-year-old female presented for altered mental status and unresponsiveness. Patient is unable to provide history currently. He history is obtained from EMS patient was unresponsive throughout most of the day does have a known coronavirus positive diagnosis MD Complaint: altered mental status, confusion, decreased responsiveness, weakness -: hour(s) Severity: moderate Consistency of Symptoms: getting worse Context: history of similar presentation, recent fever, other (Known coronavirus) Associated Symptoms: cough Treatments Prior to Arrival: IV fluid, oxygen - Related Data Home Medications Medication Instructions Recorded Confirmed Cevimeline [Evoxac] 30 mg PO TID@0800,1200,1700 03/06/18 10/21/20 Levothyroxine Sodium [Synthroid] 75 mcg PO DAILY@0800 03/06/18 10/21/20 Montelukast [Singulair] 10 mg PO DAILY@1700 03/06/18 10/21/20 Pravastatin Sodium [Pravachol] 80 mg PO HS@2100 03/06/18 10/21/20 amLODIPine [Norvasc] 5 mg PO BID@0800,1700 03/06/18 10/21/20 Fluticasone Nasal [place] [Flonase 1 spray EA NOSTRIL BID@0800,1700 09/25/18 10/21/20 Nasal [place]] Naldemedine Tosylate [Symproic] 0.2 mg PO DAILY@0800 09/25/18 10/21/20 ALPRAZolam [Xanax] 0.25 mg PO TID@0800,1200,1700 10/15/18 10/21/20 Na Phos,M-B/Na Phos,Di-Ba [Fleet 1 dose RECTAL Q24H PRN 10/15/18 10/21/20 Adult] Ascorbic Acid [Vitamin C] 1,000 mg PO DAILY@1100 10/21/20 10/21/20 Azithromycin [Zithromax] 250 mg PO DAILY@1700 10/21/20 10/21/20 Budesonide [Pulmicort] 0.5 mg INHALATION RT-BID@0800,1700 10/21/20 10/21/20 Cholecalciferol [Vitamin D3 (25 2,000 unit PO DAILY@1100 10/21/20 10/21/20 Mcg = 1000 Iu)] DULoxetine HCL [Cymbalta] 30 mg PO DAILY@0800 10/21/20 10/21/20 Dexamethasone [Decadron] 4 mg PO BID@0800,1700 10/21/20 10/21/20 Enoxaparin [Lovenox] 40 mg INJ DAILY@1100 10/21/20 10/21/20 Furosemide [Lasix] 40 mg PO DAILY@0800 10/21/20 10/21/20 HYDROcodone/APAP 10-325MG [[place] 1 each PO BID PRN 10/21/20 10/21/20 10-325] INSULIN LISPRO (humaLOG) [humaLOG] 7 unit SQ DAILY@1100 10/21/20 10/21/20 INSULIN LISPRO (humaLOG) [humaLOG] 9 unit SQ BID@0700,1700 10/21/20 10/21/20 INSULIN LISPRO (humaLOG) [humaLOG] See Protocol SQ 10/21/20 10/21/20 ACHS@07,11,1830,2130 Insulin Glargine [Lantus] 17 unit SQ HS@21310/21/20 10/21/20 Ipratropium-Albuterol Nebulize 3 ml INHALATION RT-QID@08,12,,10/21/20 10/21/20 [Duoneb 0.5 mg-3 mg/3 ml Soln] Mag Hydrox/Al Hydrox/Simeth 15 ml PO Q6H PRN 10/21/20 10/21/20 [Maalox] Magnesium Hydroxide [Milk of 7,200 mg PO DAILY PRN 10/21/20 10/21/20 Magnesia Concentrate] Melatonin 3 mg PO HS@2100 10/21/20 10/21/20 Menthol [Biofreeze] 1 applic TOPICAL Q12H PRN 10/21/20 10/21/20 Menthol-Zinc Oxide Oint 1 applic TOPICAL Q12H 10/21/20 10/21/20 [Calmoseptine Oint] Polyvinyl Alcohol/Povidone 1 drop BOTH EYES BID@0800,1700 10/21/20 10/21/20 [Fresh[place]ote Eye Drop] Potassium Chloride [Klor-Con 10] 10 meq PO DAILY@0800 10/21/20 10/21/20 Pregabalin [Lyrica] 150 mg PO DAILY@1700 10/21/20 10/21/20 Sennosides [Senna] 17.2 mg PO BID@0800,1700 10/21/20 10/21/20 Zinc Sulfate [Orazinc] 220 mg PO DAILY@1100 10/21/20 10/21/20 bisacodyL [Dulcolax] 10 mg RECTAL Q24H PRN 10/21/20 10/21/20 guaiFENesin [Diabetic Tussin Ex] 10 ml PO Q4H PRN 10/21/20 10/21/20 guaiFENesin [Mucinex] 600 mg PO BID@0800,2100 10/21/20 10/21/20 Previous Rx's Medication Instructions Recorded Butalb/Acetaminophen/Caffeine 2 tab PO Q4H PRN #12 tablet 09/30/18 [Fioricet 50-325-40] Ibuprofen [Motrin] 400 mg PO Q4HR PRN tab 09/30/18 Allergies Allergy/AdvReac Type Severity Reaction Status Date / Time prochlorperazine Allergy Itching Verified 10/21/20 23:01 [From Compazine] Sulfa (Sulfonamide Allergy Unknown Verified 10/21/20 23:01 Antibiotics) codeine AdvReac Unknown Verified 10/21/20 23:01 Review of Systems ROS Statement: Those systems with pertinent positive or pertinent negative responses have been documented in the HPI. ROS Other: All systems not noted in ROS Statement are negative. 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 SINUS SX Past Anesthesia/Blood Transfusion Reactions: Motion Sickness, Postoperative Nausea & Vomiting (PONV) Past Psychological History: Anxiety, Depression Past Alcohol Use History: None Reported Additional Past Alcohol Use History / Comment(s): QUIT SMOKING-1977 Past Drug Use History: None Reported - Past Family History Mother History Unknown: Yes Family Medical History: Cancer Father Family Medical History: No Reported History Daughter(s) Family Medical History: No Reported History General Exam General appearance: alert, in no apparent distress Head exam: Present: atraumatic, normocephalic, normal inspection Eye exam: Present: normal appearance, PERRL, EOMI. Absent: scleral icterus, conjunctival injection, periorbital swelling ENT exam: Present: normal exam, mucous membranes moist Neck exam: Present: normal inspection. Absent: tenderness, meningismus, lymphadenopathy Respiratory exam: Present: normal lung sounds bilaterally. Absent: respiratory distress, wheezes, rales, rhonchi, stridor Cardiovascular Exam: Present: regular rate, normal rhythm, normal heart sounds. Absent: systolic murmur, diastolic murmur, rubs, gallop, clicks GI/Abdominal exam: Present: soft, normal bowel sounds. Absent: distended, tenderness, guarding, rebound, rigid Extremities exam: Present: normal inspection, full ROM, normal capillary refill. Absent: tenderness, pedal edema, joint swelling, calf tenderness Back exam: Present: normal inspection Neurological exam: Present: alert, oriented X3, CN II-XII intact Psychiatric exam: Present: normal affect, normal mood Skin exam: Present: warm, dry, intact, normal color. Absent: rash Course Vital Signs 10/21/20 10/21/20 22:50 23:45 Temperature 98.4 F Pulse Rate 69 68 Respiratory 15 18 Rate Blood Pressure 111/54 109/47 O2 Sat by Pulse 94 L 98 Oximetry - Reevaluation(s) Reevaluation #1: 10/21/20 23:24 Medical records reviewed Reevaluation #2: 10/22/20 00:03 Recheck and patient is unchanged - Consultations Consultation #1: Spoke with Dr. Castillo who accepts to admit the patient Medical Decision Making - Medical Decision Making 70 female DF for altered mental status patient remains altered but possibly at baseline here in the ER positive UTI positive coronavirus patient be admitted for cardiopulmonary support supportive care - Lab Data Result diagrams: 10/21/20 23:06 10/21/20 23:06 Lab Results 10/21/20 10/21/20 10/21/20 Range/Units 23:06 23:06 23:06 WBC 6.1 (3.8-10.6) k/uL RBC 5.47 H (3.80-5.40) m/uL Hgb 16.0 (11.4-16.0) gm/dL Hct 48.1 H (34.0-46.0) % MCV 87.9 (80.0-100.0) fL MCH 29.3 (25.0-35.0) pg MCHC 33.3 (31.0-37.0) g/dL RDW 13.6 (11.5-15.5) % Plt Count 207 (150-450) k/uL MPV 8.8 Neutrophils % 81 % Lymphocytes % 7 % Monocytes % 7 % Eosinophils % 1 % Basophils % 3 % Neutrophils # 4.9 (1.3-7.7) k/uL Lymphocytes # 0.4 L (1.0-4.8) k/uL Monocytes # 0.4 (0-1.0) k/uL Eosinophils # 0.1 (0-0.7) k/uL Basophils # 0.2 (0-0.2) k/uL PT 9.9 (9.0-12.0) sec INR 0.9 (<1.2) APTT 23.1 (22.0-30.0) sec Sodium (137-145) mmol/L Potassium (3.5-5.1) mmol/L Chloride (98-107) mmol/L Carbon Dioxide (22-30) mmol/L Anion Gap mmol/L BUN (7-17) mg/dL Creatinine (0.52-1.04) mg/dL Est GFR (CKD-EPI)AfAm (>60 ml/min/1.73 sqM) Est GFR (CKD-EPI)NonAf (>60 ml/min/1.73 sqM) Glucose (74-99) mg/dL Plasma Lactic Acid [place] (0.7-2.0) mmol/L Calcium (8.4-10.2) mg/dL Phosphorus (2.5-4.5) mg/dL Magnesium (1.6-2.3) mg/dL Total Bilirubin (0.2-1.3) mg/dL AST (14-36) U/L ALT (4-34) U/L Alkaline Phosphatase (38-126) U/L Ammonia (<30) umol/L Lactate Dehydrogenase (313-618) U/L Creatine Kinase (30-135) U/L Troponin I (0.000-0.034) ng/mL C-Reactive Protein (<10.0) mg/L Total Protein (6.3-8.2) g/dL Albumin (3.5-5.0) g/dL TSH (0.465-4.680) mIU/L Urine Color Yellow Urine Appearance Cloudy H (Clear) Urine pH 5.5 (5.0-8.0) Ur Specific [place] 1.026 (1.001-1.035) Urine Protein Trace H (Negative) Urine Glucose (UA) Negative (Negative) Urine Ketones Negative (Negative) Urine Blood Negative (Negative) Urine Nitrite Negative (Negative) Urine Bilirubin Negative (Negative) Urine Urobilinogen <2.0 (<2.0) mg/dL Ur Leukocyte Esterase Large H (Negative) Urine RBC 5 (0-5) /hpf Urine WBC 108 H (0-5) /hpf Urine WBC Clumps Moderate H (None) /hpf Ur Squamous Epith Cells 4 (0-4) /hpf Urine Bacteria Many H (None) /hpf Urine Mucus Many H (None) /hpf 10/21/20 10/21/20 10/21/20 Range/Units 23:06 23:06 23:06 WBC (3.8-10.6) k/uL RBC (3.80-5.40) m/uL Hgb (11.4-16.0) gm/dL Hct (34.0-46.0) % MCV (80.0-100.0) fL MCH (25.0-35.0) pg MCHC (31.0-37.0) g/dL RDW (11.5-15.5) % Plt Count (150-450) k/uL MPV Neutrophils % % Lymphocytes % % Monocytes % % Eosinophils % % Basophils % % Neutrophils # (1.3-7.7) k/uL Lymphocytes # (1.0-4.8) k/uL Monocytes # (0-1.0) k/uL Eosinophils # (0-0.7) k/uL Basophils # (0-0.2) k/uL PT (9.0-12.0) sec INR (<1.2) APTT (22.0-30.0) sec Sodium 140 (137-145) mmol/L Potassium 4.1 (3.5-5.1) mmol/L Chloride 105 (98-107) mmol/L Carbon Dioxide 28 (22-30) mmol/L Anion Gap 7 mmol/L BUN 22 H (7-17) mg/dL Creatinine 0.59 (0.52-1.04) mg/dL Est GFR (CKD-EPI)AfAm >90 (>60 ml/min/1.73 sqM) Est GFR (CKD-EPI)NonAf >90 (>60 ml/min/1.73 sqM) Glucose 165 H (74-99) mg/dL Plasma Lactic Acid [place] 1.0 (0.7-2.0) mmol/L Calcium 8.9 (8.4-10.2) mg/dL Phosphorus 5.6 H (2.5-4.5) mg/dL Magnesium 2.3 (1.6-2.3) mg/dL Total Bilirubin 0.5 (0.2-1.3) mg/dL AST 37 H (14-36) U/L ALT 48 H (4-34) U/L Alkaline Phosphatase 76 (38-126) U/L Ammonia <9 (<30) umol/L Lactate Dehydrogenase 494 (313-618) U/L Creatine Kinase 37 (30-135) U/L Troponin I <0.012 (0.000-0.034) ng/mL C-Reactive Protein 7.8 (<10.0) mg/L Total Protein 6.8 (6.3-8.2) g/dL Albumin 4.1 (3.5-5.0) g/dL TSH 1.050 (0.465-4.680) mIU/L Urine Color Urine Appearance (Clear) Urine pH (5.0-8.0) Ur Specific [place] (1.001-1.035) Urine Protein (Negative) Urine Glucose (UA) (Negative) Urine Ketones (Negative) Urine Blood (Negative) Urine Nitrite (Negative) Urine Bilirubin (Negative) Urine Urobilinogen (<2.0) mg/dL Ur Leukocyte Esterase (Negative) Urine RBC (0-5) /hpf Urine WBC (0-5) /hpf Urine WBC Clumps (None) /hpf Ur Squamous Epith Cells (0-4) /hpf Urine Bacteria (None) /hpf Urine Mucus (None) /hpf - EKG Data -: EKG Interpreted by Me (EKG is sinus 69 SD 180 QRS 106 QTc 477) - Radiology Data Radiology results: report reviewed (CT brain negative chest x-ray interstitial edema), image reviewed Disposition Clinical Impression: Weakness, Frequent falls, Altered mental status, Coronavirus infection, UTI (urinary tract infection) Disposition: ADMITTED IP TO THIS HOSP Condition: Fair Is patient prescribed a controlled substance at d/c from ED?: No Referrals: Robert Amador MD [Primary Care Provider] - 1-2 days
[2020-10-21 23:20] LABS: Basophils # (A) 0.2 k/uL (0-0.2); Basophils % (A) 3 %; Eosinophils # (A) 0.1 k/uL (0-0.7); Eosinophils % (A) 1 %; HCT 48.1 % (34.0-46.0); Lymphocytes # (A) 0.4 k/uL (1.0-4.8); Lymphocytes % (A) 7 %; MCH 29.3 pg (25.0-35.0); MCHC 33.3 g/dL (31.0-37.0); MCV 87.9 fL (80.0-100.0); Mean Platelet Volume 8.8; Monocytes # (A) 0.4 k/uL (0-1.0); Monocytes % (A) 7 %; Neutrophils # (A) 4.9 k/uL (1.3-7.7); Neutrophils % (A) 81 %; Platelet Count 207 k/uL (150-450); RBC 5.47 m/uL (3.80-5.40); RDW 13.6 % (11.5-15.5); WBC 6.1 k/uL (3.8-10.6)
[2020-10-21 23:27] LABS: INR 0.9 (<1.2); Partial Thromboplastin Time 23.1 sec (22.0-30.0); Prothrombin Time 9.9 sec (9.0-12.0)
[2020-10-21 23:30] LABS: ALT 48 U/L (4-34); AST 37 U/L (14-36); African American GFR (CKD) >90 (>60 ml/min/1.73 sqM); Albumin 4.1 g/dL (3.5-5.0); Alkaline Phosphatase 76 U/L (38-126); Anion Gap 7 mmol/L; Blood Urea Nitrogen 22 mg/dL (7-17); C Reactive Protein 7.8 mg/L (<10.0); Calcium 8.9 mg/dL (8.4-10.2); Carbon Dioxide 28 mmol/L (22-30); Chloride 105 mmol/L (98-107); Creatine Kinase 37 U/L (30-135); Glucose 165 mg/dL (74-99); LDH 494 U/L (313-618); Magnesium 2.3 mg/dL (1.6-2.3); Non-African American GFR(CKD) >90 (>60 ml/min/1.73 sqM); Phosphorus 5.6 mg/dL (2.5-4.5); Potassium 4.1 mmol/L (3.5-5.1); Sodium 140 mmol/L (137-145); Total Bilirubin 0.5 mg/dL (0.2-1.3); Total Protein 6.8 g/dL (6.3-8.2)
[2020-10-21 23:37] LABS: Appearance,Urine Cloudy (Clear); Bacteria,Urine Many /hpf; Bilirubin,Urine Negative (Negative); Blood,Urine Negative (Negative); Color,Urine Yellow; Glucose,Urine (UA) Negative (Negative); Ketones,Urine Negative (Negative); Leukocyte Esterase,Urine Large (Negative); Mucus,Urine Many /hpf; Nitrite,Urine Negative (Negative); PH, Urine 5.5 (5.0-8.0); Protein,Urine Trace (Negative); RBC,Urine 5 /hpf (0-5); Specific Gravity,Urine 1.026 (1.001-1.035); Squamous Epithelial Cell,Urine 4 /hpf (0-4); Urobilinogen,Urine <2.0 mg/dL (<2.0); WBC,Urine 108 /hpf (0-5)
--- NOTE | 2020-10-21 23:43 | CT ---
EXAMINATION TYPE: CT brain wo con DATE OF EXAM: 10/21/2020 COMPARISON: 09/25/2018 HISTORY: weakness CT DLP: 1109.4 mGycm Automated exposure control for dose reduction was used. There is cerebral cortical atrophy. There is patchy hypodensity in the periventricular white matter. There is no mass effect nor midline shift. There is no sign of intracranial hemorrhage. The calvarium is intact. There is mild mucosal thickening in the ethmoid sinuses. There is previous surgery of the maxillary sinuses. IMPRESSION: Cerebral atrophy and chronic small vessel ischemia. No acute intracranial abnormality. No change.
--- NOTE | 2020-10-21 23:45 | XR ---
EXAMINATION TYPE: XR chest 1V portable DATE OF EXAM: 10/21/2020 COMPARISON: 09/26/2018 HISTORY: Pneumonia. Short of breath. TECHNIQUE: FINDINGS: Heart is enlarged. There is coarsening of interstitial markings. There are chest leads. The re is no definite pleural effusion. There are no hilar masses. IMPRESSION: Heart appears increased compared to old exam. Increased interstitial pulmonary density bu t no obvious heart failure.
[2020-10-22] MEDS ORDERED: ONDANSETRON 4 MG/2 ML VIAL IVP PRN (00:01)
[2020-10-22] MEDS ORDERED: NALOXONE 0.4 MG/ML 1 ML VIAL IV PRN (00:01)
[2020-10-22] MEDS ORDERED: ALBUTEROL HFA INHALER INHALATION STA (00:05)
[2020-10-22] MEDS ORDERED: ALBUTEROL HFA INHALER INHALATION PRN (00:05)
[2020-10-22] MEDS ORDERED: methylPREDNISolone SOD SUCCI 125 MG/2 ML VIAL IV STA (00:05)
[2020-10-22 03:01] LABS: Glucose,Whole Blood 224 mg/dL (75-99)
[2020-10-22] MEDS ORDERED: bisacodyL 10 MG SUPP RECTAL PRN (05:44)
[2020-10-22] MEDS ORDERED: MAG HYDROX/AL HYDROX/SIMETH 30 ML CUP PO PRN (05:44)
[2020-10-22] MEDS ORDERED: BUTALB/APAP/CAFF 50-325-40MG TAB PO PRN ×2 (05:44→05:52)
[2020-10-22] MEDS ORDERED: MAGNESIUM HYDROXIDE 2,400 MG/10 ML CUP PO PRN (05:44)
[2020-10-22] MEDS ORDERED: guaiFENesin SYRUP 100MG/5ML 200 MG/10 ML CUP PO PRN (05:44)
[2020-10-22] MEDS ORDERED: NA PHOS,M-B/NA PHOS,DI-BA 133 ML ENEMA RECTAL PRN (05:44)
[2020-10-22] MEDS ORDERED: NON FORMULARY DRUG (Menthol [Biofreeze] 89 ML Gel..Ml.) TOPICAL PRN (05:44)
[2020-10-22] MEDS: MENTHOL-ZINC OXIDE OINT 113 GM TUBE TOPICAL SCH ×2 (06:08→17:15)
[2020-10-22 06:57] LABS: Glucose,Whole Blood 238 mg/dL (75-99)
[2020-10-22] MEDS ORDERED: IPRATROPIUM-ALBUTEROL 3 ML NEB INHALATION SCH (08:00)
[2020-10-22] MEDS ORDERED: POLYVINYL ALCOHOL BOTH EYES SCH (08:00)
[2020-10-22] MEDS ORDERED: BUDESONIDE 0.5 MG/2 ML NEBU INHALATION SCH (08:00)
[2020-10-22] MEDS ORDERED: POVIDONE BOTH EYES SCH (08:00)
[2020-10-22] MEDS: ATORVASTATIN 10 MG TAB PO SCH (08:08)
[2020-10-22] MEDS: FUROSEMIDE 40 MG TAB PO SCH (08:08)
[2020-10-22] MEDS: ENOXAPARIN 40 MG/0.4 ML SYRINGE SQ SCH (08:08)
[2020-10-22] MEDS: SENNOSIDES 8.6 MG TAB PO SCH ×2 (08:08→17:11)
[2020-10-22] MEDS: POTASSIUM CHLORIDE ER 10 MEQ TAB.ER.PRT PO SCH (08:08)
[2020-10-22] MEDS: PANTOPRAZOLE 40 MG TABLET PO SCH (08:08)
[2020-10-22] MEDS: LEVOTHYROXINE 75 MCG TAB PO SCH (08:08)
[2020-10-22] MEDS: guaiFENesin 600 MG TABLET.ER PO SCH ×2 (08:08→20:55)
[2020-10-22] MEDS: amLODIPine 5 MG TAB PO SCH ×2 (08:08→17:11)
[2020-10-22] MEDS: CEVIMELINE 30 MG CAP PO SCH ×3 (08:11→17:13)
[2020-10-22] MEDS: ALPRAZolam 0.25 MG TAB PO SCH ×3 (08:12→17:12)
[2020-10-22] MEDS: DULoxetine HCL 30 MG CAPSULE.DR PO SCH (08:12)
[2020-10-22] MEDS: FLUTICASONE 50MCG/SPRAY NASAL 16GM EA NOSTRIL SCH ×2 (08:12→17:14)
[2020-10-22] MEDS: INSULIN ASPART (NovoLOG) 100 UNIT/ML VIAL SQ SCH ×3 (08:14→17:18)
[2020-10-22] MEDS: NALDEMEDINE TOSYLATE 0.2 MG PO SCH (08:25)
[2020-10-22] MEDS: ALBUTEROL HFA INHALER INHALATION SCH ×4 (09:15→19:20)
--- NOTE | 2020-10-22 10:45 | P.CNPUL ---
History of Present Illness Consult date: 10/22/20 Reason for consult: dyspnea, cough, pneumonia Chief complaint: Altered mental status History of present illness: Patient is a 70-year-old female with the ongoing progressive confusion patient is a resident of extended care facility she was noted to be more weak and poorly responsive came into the hospital patient is on soft mechanical diet currently, would recommend a speech and swallow evaluation, patient is noted to be covid positive as well, labs are significant for hemoconcentration, and also slightly dehydration with elevated BUNs and creatinines normal, slight hypercapnia glycemia is noted as well, urinalysis is suggestive of ongoing urinary tract infection with large leukocyte esterase with bacteria and mucus urine culture is pending, currently patient is on IV Zosyn for urinary tract infection and pos sible aspiration pneumonia, brain CT noted to have chronic small vessel disease, chest x-ray however noted to have coarse bilateral interstitial marking consistent with Covid 19 pneumonia, along with cardiomegaly Review of Systems All systems: negative Past Medical History Past Medical History: Asthma, Diabetes Mellitus, GERD/Reflux, Hyperlipidemia, Hypertension, Memory Impairment, Neurologic Disorder, Thyroid Disorder Additional Past Medical History / Comment(s): DIVERTICULITIS , SJOGRENS, MIGRAINES, 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 SINUS SX Past Anesthesia/Blood Transfusion Reactions: Motion Sickness, Postoperative Nausea & Vomiting (PONV) Past Psychological History: Anxiety, Depression Smoking Status: Former smoker Past Alcohol Use History: None Reported Additional Past Alcohol Use History / Comment(s): QUIT SMOKING-1977 Past Drug Use History: None Reported - Past Family History Mother History Unknown: Yes Family Medical History: Cancer Father Family Medical History: No Reported History Daughter(s) Family Medical History: No Reported History Medications and Allergies Home Medications Medication Instructions Recorded Confirmed Type Cevimeline [Evoxac] 30 mg PO TID@0800,1200,1700 03/06/18 10/21/20 History Levothyroxine Sodium [Synthroid] 75 mcg PO DAILY@0800 03/06/18 10/21/20 History Montelukast [Singulair] 10 mg PO DAILY@1700 03/06/18 10/21/20 History Pravastatin Sodium [Pravachol] 80 mg PO HS@2100 03/06/18 10/21/20 History amLODIPine [Norvasc] 5 mg PO BID@0800,1700 03/06/18 10/21/20 History Fluticasone Nasal [place] [Flonase 1 spray EA NOSTRIL BID@0800,1700 09/25/18 10/21/20 History Nasal [place]] Naldemedine Tosylate [Symproic] 0.2 mg PO DAILY@0800 09/25/18 10/21/20 History Butalb/Acetaminophen/Caffeine 2 tab PO Q4H PRN #12 tablet 09/30/18 10/21/20 Rx [Fioricet 50-325-40] Ibuprofen [Motrin] 400 mg PO Q4HR PRN tab 09/30/18 10/21/20 Rx ALPRAZolam [Xanax] 0.25 mg PO TID@0800,1200,1700 10/15/18 10/21/20 History Na Phos,M-B/Na Phos,Di-Ba [Fleet 1 dose RECTAL Q24H PRN 10/15/18 10/21/20 History Adult] Ascorbic Acid [Vitamin C] 1,000 mg PO DAILY@1100 10/21/20 10/21/20 History Azithromycin [Zithromax] 250 mg PO DAILY@1700 10/21/20 10/21/20 History Budesonide [Pulmicort] 0.5 mg INHALATION RT-BID@0800,1700 10/21/20 10/21/20 History Cholecalciferol [Vitamin D3 (25 2,000 unit PO DAILY@1100 10/21/20 10/21/20 History Mcg = 1000 Iu)] DULoxetine HCL [Cymbalta] 30 mg PO DAILY@0800 10/21/20 10/21/20 History Dexamethasone [Decadron] 4 mg PO BID@0800,1700 10/21/20 10/21/20 History Enoxaparin [Lovenox] 40 mg INJ DAILY@1100 10/21/20 10/21/20 History Furosemide [Lasix] 40 mg PO DAILY@0800 10/21/20 10/21/20 History HYDROcodone/APAP 10-325MG [[place] 1 each PO BID PRN 10/21/20 10/21/20 History 10-325] INSULIN LISPRO (humaLOG) [humaLOG] 7 unit SQ DAILY@1100 10/21/20 10/21/20 History INSULIN LISPRO (humaLOG) [humaLOG] 9 unit SQ BID@0700,1700 10/21/20 10/21/20 History INSULIN LISPRO (humaLOG) [humaLOG] See Protocol SQ 10/21/20 10/21/20 History ACHS@07,11,1830,2129 Insulin Glargine [Lantus] 17 unit SQ HS@212910/21/20 10/21/20 History Ipratropium-Albuterol Nebulize 3 ml INHALATION RT-QID@08,,,10/21/20 10/21/20 History [Duoneb 0.5 mg-3 mg/3 ml Soln] Mag Hydrox/Al Hydrox/Simeth 15 ml PO Q6H PRN 10/21/20 10/21/20 History [Maalox] Magnesium Hydroxide [Milk of 7,200 mg PO DAILY PRN 10/21/20 10/21/20 History Magnesia Concentrate] Melatonin 3 mg PO HS@2100 10/21/20 10/21/20 History Menthol [Biofreeze] 1 applic TOPICAL Q12H PRN 10/21/20 10/21/20 History Menthol-Zinc Oxide Oint 1 applic TOPICAL Q12H 10/21/20 10/21/20 History [Calmoseptine Oint] Polyvinyl Alcohol/Povidone 1 drop BOTH EYES BID@0800,1700 10/21/20 10/21/20 History [[place] Eye Drop] Potassium Chloride [Klor-Con 10] 10 meq PO DAILY@0800 10/21/20 10/21/20 History Pregabalin [Lyrica] 150 mg PO DAILY@1700 10/21/20 10/21/20 History Sennosides [Senna] 17.2 mg PO BID@0800,1700 10/21/20 10/21/20 History Zinc Sulfate [Orazinc] 220 mg PO DAILY@1100 10/21/20 10/21/20 History bisacodyL [Dulcolax] 10 mg RECTAL Q24H PRN 10/21/20 10/21/20 History guaiFENesin [Diabetic Tussin Ex] 10 ml PO Q4H PRN 10/21/20 10/21/20 History guaiFENesin [Mucinex] 600 mg PO BID@0800,2100 10/21/20 10/21/20 History Allergies Allergy/AdvReac Type Severity Reaction Status Date / Time prochlorperazine Allergy Itching Verified 10/21/20 23:01 [From Compazine] Sulfa (Sulfonamide Allergy Unknown Verified 10/21/20 23:01 Antibiotics) codeine AdvReac Unknown Verified 10/21/20 23:01 Physical Exam Vitals: Vital Signs Temp Pulse Pulse Resp BP BP Pulse Ox 10/22/20 10:20 98.7 F 70 22 117/68 98 10/22/20 05:15 98.2 F 58 L 15 114/70 99 10/22/20 02:08 16 10/22/20 01:35 99.0 F 68 18 144/72 99 10/22/20 00:36 70 16 102/50 97 10/21/20 23:45 68 18 109/47 98 10/21/20 22:50 98.4 F 69 15 111/54 94 L Intake and Output 10/21/20 10/22/20 10/22/20 22:59 06:59 14:59 Intake Total 0 Output Total 100 Balance -100 Intake: Oral 0 Output: Urine 100 Other: Voiding Method Indwelling Catheter Weight 104.326 kg 104.326 kg - Constitutional General appearance: average body habitus, disheveled - EENT Eyes: PERRLA Ears: bilateral: normal - Neck Neck: normal ROM Carotids: bilateral: upstroke normal Thyroid: bilateral: normal size - Respiratory Respiratory: bilateral: diminished - Cardiovascular Rhythm: regular Heart sounds: normal: S1, S2 - Gastrointestinal General gastrointestinal: normal bowel sounds, soft - Musculoskeletal Musculoskeletal: generalized weakness - Psychiatric Poorly responsive lethargic but moans on physical stimuli Results - Laboratory Findings CBC and BMP: 10/21/20 23:06 10/21/20 23:06 PT/INR, D-dimer PT 9.9 sec (9.0-12.0) 10/21/20 23:06 INR 0.9 (<1.2) 10/21/20 23:06 Abnormal lab findings: Abnormal Labs 10/21/20 10/21/20 10/21/20 23:06 23:06 23:06 RBC 5.47 H Hct 48.1 H Lymphocytes # 0.4 L BUN 22 H Glucose 165 H POC Glucose (mg/dL) Phosphorus 5.6 H AST 37 H ALT 48 H Urine Appearance Cloudy H Urine Protein Trace H Ur Leukocyte Esterase Large H Urine WBC 108 H Urine WBC Clumps Moderate H Urine Bacteria Many H Urine Mucus Many H 10/22/20 10/22/20 03:01 06:53 RBC Hct Lymphocytes # BUN Glucose POC Glucose (mg/dL) 224 H 238 H Phosphorus AST ALT Urine Appearance Urine Protein Ur Leukocyte Esterase Urine WBC Urine WBC Clumps Urine Bacteria Urine Mucus Assessment and Plan Assessment: Altered mental status due to sepsis Acute hypoxic respiratory failure Covid 19 pneumonia Sepsis due to Urinary tract infection Aspiration pneumonia Insulin-dependent type 2 diabetes mellitus Hypertension hypertensive cardiovascular disease Plan: Agree with IV Zosyn REMdesivir IV for 5 days Decadron 6 mg IV every 12 Supplemental oxygen on the deep breathing exercise incentive spirometry Prone positioning if possible A speech to evaluate for swallow evaluation Repeat chest x-ray tomorrow if no infiltrate are seen antibiotics can be simplified for urinary tract infection Further recommendations pending plan of care as per clinical response of the patient Time with Patient: Greater than 30
[2020-10-22 11:16] LABS: Glucose,Whole Blood 279 mg/dL (75-99)
[2020-10-22] MEDS ORDERED: REMDESIVIR 200 MG in SODIUM CHLORIDE 0.9% 250 ML IVPB ONE (11:30)
[2020-10-22] MEDS: ASCORBIC ACID 500 MG TAB PO SCH (11:35)
[2020-10-22] MEDS: CHOLECALCIFEROL 1,000 UNIT TAB PO SCH (11:35)
[2020-10-22] MEDS: ZINC SULFATE 220 MG CAP PO SCH (11:37)
[2020-10-22] MEDS: DEXAMETHASONE SOD PHOSPHATE 10 MG/ML 1 ML VIAL IV SCH (11:40)
--- NOTE | 2020-10-22 12:12 | P.HPIM ---
History of Present Illness H&P Date: 10/22/20 Chief Complaint: AMS This is a 70-year-old female patient of Dr. Amador, with a past medical history of diabetes mellitus type 2, fibromyalgia, chronic pain, asthma, hypothyroidism, Sojourn's syndrome, dementia and migraines. 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 During routine testing at the [facility], she was noted to be COVID positive. She was doing well with mild symptoms until she was noted by the staff to become less responsive and noted to have more generalized weakness. She was transferred to the hospital. Chest x-ray showed interstitial pulmonary density but no obvious heart failure and coarsening of interstitial markings. Head CT shows cerebral atrophy and chronic small vessel ischemia with no acute intracranial abnormality. Laboratory values showed WBC 6.1, hemoglobin 16, platelet 207, BUN 22, creatinine 0.59, sodium 140, potassium 4.1 C-reactive protein 7.8, LDH 494 CK 37. UA was obtained and is positive for urinary tract infection. There is concern for possible aspiration pneumonia, patient was started on IV Zosyn, pulmonary on consult and started Remdesivir and dexamethasone. Review of Systems Constitutional: Reports chills, Reports chronic pain, Reports fatigue, Reports weakness, Denies fever Ears, nose, mouth and throat: Reports dysphagia, Reports voice changes, Denies headache, Denies nasal congestion, Denies nasal discharge, Denies odynophagia, Denies sinus pain, Denies sinus pressure, Denies sore throat Cardiovascular: Reports dyspnea on exertion, Reports leg edema, Reports shortness of breath, Denies edema, Denies orthopnea, Denies palpitations Respiratory: Reports congestion, Reports cough, Reports dyspnea, Denies pain, Denies wheezing Gastrointestinal: Reports loss of appetite, Denies constipation, Denies diarrhea, Denies dyspepsia, Denies heartburn, Denies nausea, Denies vomiting Musculoskeletal: Reports gait dysfunction, Denies fractures, Denies frequent falls, Denies low back pain, Denies neck stiffness Integumentary: Denies dryness, Denies lesions, Denies rash, Denies wounds Neurological: Reports confusion, Reports weakness, Denies headaches, Denies numbness, Denies paralysis, Denies syncope Endocrine: Reports fatigue Hematologic/Lymphatic: Denies lymphadenopathy Past Medical History Past Medical History: Asthma, Diabetes Mellitus, GERD/Reflux, Hyperlipidemia, Hypertension, Memory Impairment, Neurologic Disorder, Thyroid Disorder Additional Past Medical History / Comment(s): DIVERTICULITIS , SJOGRENS, MIGRAINES, 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 SINUS SX Past Anesthesia/Blood Transfusion Reactions: Motion Sickness, Postoperative Nausea & Vomiting (PONV) Past Psychological History: Anxiety, Depression Smoking Status: Former smoker Past Alcohol Use History: None Reported Additional Past Alcohol Use History / Comment(s): QUIT SMOKING-1977 Past Drug Use History: None Reported - Past Family History Mother History Unknown: Yes Family Medical History: Cancer Father Family Medical History: No Reported History Daughter(s) Family Medical History: No Reported History Medications and Allergies Home Medications Medication Instructions Recorded Confirmed Type Cevimeline [Evoxac] 30 mg PO TID@0800,1200,1700 03/06/18 10/21/20 History Levothyroxine Sodium [Synthroid] 75 mcg PO DAILY@0800 03/06/18 10/21/20 History Montelukast [Singulair] 10 mg PO DAILY@1700 03/06/18 10/21/20 History Pravastatin Sodium [Pravachol] 80 mg PO HS@2100 03/06/18 10/21/20 History amLODIPine [Norvasc] 5 mg PO BID@0800,1700 03/06/18 10/21/20 History Fluticasone Nasal [place] [Flonase 1 spray EA NOSTRIL BID@0800,1700 09/25/18 10/21/20 History Nasal [place]] Naldemedine Tosylate [Symproic] 0.2 mg PO DAILY@0800 09/25/18 10/21/20 History Butalb/Acetaminophen/Caffeine 2 tab PO Q4H PRN #12 tablet 09/30/18 10/21/20 Rx [Fioricet 50-325-40] Ibuprofen [Motrin] 400 mg PO Q4HR PRN tab 09/30/18 10/21/20 Rx ALPRAZolam [Xanax] 0.25 mg PO TID@0800,1200,1700 10/15/18 10/21/20 History Na Phos,M-B/Na Phos,Di-Ba [Fleet 1 dose RECTAL Q24H PRN 10/15/18 10/21/20 History Adult] Ascorbic Acid [Vitamin C] 1,000 mg PO DAILY@1100 10/21/20 10/21/20 History Azithromycin [Zithromax] 250 mg PO DAILY@1700 10/21/20 10/21/20 History Budesonide [Pulmicort] 0.5 mg INHALATION RT-BID@0800,1700 10/21/20 10/21/20 History Cholecalciferol [Vitamin D3 (25 2,000 unit PO DAILY@1100 10/21/20 10/21/20 History Mcg = 1000 Iu)] DULoxetine HCL [Cymbalta] 30 mg PO DAILY@0800 10/21/20 10/21/20 History Dexamethasone [Decadron] 4 mg PO BID@0800,1700 10/21/20 10/21/20 History Enoxaparin [Lovenox] 40 mg INJ DAILY@1100 10/21/20 10/21/20 History Furosemide [Lasix] 40 mg PO DAILY@0800 10/21/20 10/21/20 History HYDROcodone/APAP 10-325MG [[place] 1 each PO BID PRN 10/21/20 10/21/20 History 10-325] INSULIN LISPRO (humaLOG) [humaLOG] 7 unit SQ DAILY@1100 10/21/20 10/21/20 History INSULIN LISPRO (humaLOG) [humaLOG] 9 unit SQ BID@0700,1700 10/21/20 10/21/20 History INSULIN LISPRO (humaLOG) [humaLOG] See Protocol SQ 10/21/20 10/21/20 History ACHS@07,11,1830,0 Insulin Glargine [Lantus] 17 unit SQ HS@212910/21/20 10/21/20 History Ipratropium-Albuterol Nebulize 3 ml INHALATION RT-QID@08,12,,21 10/21/20 10/21/20 History [Duoneb 0.5 mg-3 mg/3 ml Soln] Mag Hydrox/Al Hydrox/Simeth 15 ml PO Q6H PRN 10/21/20 10/21/20 History [Maalox] Magnesium Hydroxide [Milk of 7,200 mg PO DAILY PRN 10/21/20 10/21/20 History Magnesia Concentrate] Melatonin 3 mg PO HS@2100 10/21/20 10/21/20 History Menthol [Biofreeze] 1 applic TOPICAL Q12H PRN 10/21/20 10/21/20 History Menthol-Zinc Oxide Oint 1 applic TOPICAL Q12H 10/21/20 10/21/20 History [Calmoseptine Oint] Polyvinyl Alcohol/Povidone 1 drop BOTH EYES BID@0800,1700 10/21/20 10/21/20 History [[place] Eye Drop] Potassium Chloride [Klor-Con 10] 10 meq PO DAILY@0800 10/21/20 10/21/20 History Pregabalin [Lyrica] 150 mg PO DAILY@1700 10/21/20 10/21/20 History Sennosides [Senna] 17.2 mg PO BID@0800,1700 10/21/20 10/21/20 History Zinc Sulfate [Orazinc] 220 mg PO DAILY@1100 10/21/20 10/21/20 History bisacodyL [Dulcolax] 10 mg RECTAL Q24H PRN 10/21/20 10/21/20 History guaiFENesin [Diabetic Tussin Ex] 10 ml PO Q4H PRN 10/21/20 10/21/20 History guaiFENesin [Mucinex] 600 mg PO BID@0800,2100 10/21/20 10/21/20 History Allergies Allergy/AdvReac Type Severity Reaction Status Date / Time prochlorperazine Allergy Itching Verified 10/21/20 23:01 [From Compazine] Sulfa (Sulfonamide Allergy Unknown Verified 10/21/20 23:01 Antibiotics) codeine AdvReac Unknown Verified 10/21/20 23:01 Physical Exam Vitals: Vital Signs Temp Pulse Pulse Resp BP BP Pulse Ox 10/22/20 10:20 98.7 F 70 22 117/68 98 10/22/20 05:15 98.2 F 58 L 15 114/70 99 10/22/20 02:08 16 10/22/20 01:35 99.0 F 68 18 144/72 99 10/22/20 00:36 70 16 102/50 97 10/21/20 23:45 68 18 109/47 98 10/21/20 22:50 98.4 F 69 15 111/54 94 L Intake and Output 10/21/20 10/22/20 10/22/20 22:59 06:59 14:59 Intake Total 0 Output Total 100 Balance -100 Intake: Oral 0 Output: Urine 100 Other: Voiding Method Indwelling Catheter Weight 104.326 kg 104.326 kg - Constitutional General appearance: cooperative, mild distress, obese - EENT Eyes: no abnormal pupil, EOMI, PERRLA, fundus normal, normal appearance ENT: hearing grossly normal, normal oropharynx, no pharyngeal erythema, no thrush - Neck Neck: no lymphadenopathy, normal ROM, no thyromegaly - Respiratory Respiratory: bilateral: diminished, negative: dullness, rales, rhonchi, wheezing - Cardiovascular Rhythm: regular Heart sounds: normal: S1, S2 - Gastrointestinal General gastrointestinal: no decreased bowel sounds, no distended, no hepatomegaly, normal bowel sounds, no organomegaly, soft, no tenderness - Integumentary Integumentary: normal, normal turgor, no rash - Neurologic Neurologic: CNII-XII intact - Musculoskeletal Musculoskeletal: generalized weakness, strength equal bilaterally, no right sided weakness, no left sided weakness - Psychiatric confusion Results CBC & Chem 7: 10/21/20 23:06 10/21/20 23:06 Labs: Abnormal Lab Results - Last 24 Hours (Table) 10/21/20 10/21/20 10/21/20 Range/Units 23:06 23:06 23:06 RBC 5.47 H (3.80-5.40) m/uL Hct 48.1 H (34.0-46.0) % Lymphocytes # 0.4 L (1.0-4.8) k/uL BUN 22 H (7-17) mg/dL Glucose 165 H (74-99) mg/dL POC Glucose (mg/dL) (75-99) mg/dL Phosphorus 5.6 H (2.5-4.5) mg/dL AST 37 H (14-36) U/L ALT 48 H (4-34) U/L Urine Appearance Cloudy H (Clear) Urine Protein Trace H (Negative) Ur Leukocyte Esterase Large H (Negative) Urine WBC 108 H (0-5) /hpf Urine WBC Clumps Moderate H (None) /hpf Urine Bacteria Many H (None) /hpf Urine Mucus Many H (None) /hpf 10/22/20 10/22/20 10/22/20 Range/Units 03:01 06:53 11:13 RBC (3.80-5.40) m/uL Hct (34.0-46.0) % Lymphocytes # (1.0-4.8) k/uL BUN (7-17) mg/dL Glucose (74-99) mg/dL POC Glucose (mg/dL) 224 H 238 H 279 H (75-99) mg/dL Phosphorus (2.5-4.5) mg/dL AST (14-36) U/L ALT (4-34) U/L Urine Appearance (Clear) Urine Protein (Negative) Ur Leukocyte Esterase (Negative) Urine WBC (0-5) /hpf Urine WBC Clumps (None) /hpf Urine Bacteria (None) /hpf Urine Mucus (None) /hpf Microbiology - Last 24 Hours (Table) 10/21/20 23:06 Urine Culture - Preliminary Urine,Clean Catch Thrombosis Risk Factor Assmnt - Choose All That Apply Each Risk Factor Represents 2 Points: Age 61-74 years Thrombosis Risk Factor Assessment Total Risk Factor Score: 2 Thrombosis Risk Factor Assessment Level: Low Risk Assessment and Plan Plan: 1. Acute hypoxic respiratory failure. Continue Decadron 6 mg IV push every 6 hours and supplemental oxygen, encourage incentive spirometry pulmonary on consult. 2. Altered mental status secondary to sepsis. Will treat underlying infection 3. COVID 19 pneumonia. Pulmonary on consult, Remdesivir IV for 5 days, dexam ethasone 6 mg IV every 12 hours, supplemental oxygen. 4. Sepsis secondary to urinary tract infection. Urine culture pending 5. Aspiration pneumonia. Started on Zosyn, will also obtain swallow ev aluation. 6. Type 2 diabetes mellitus. Accu-Cheks with sliding scale coverage and Levemir 17 units at at bedtime. 7. Hypertension and hypertensive cardiovascular disease. On Norvasc 5 mg twice a day 8. Fibromyalgia with chronic pain. Continue Ahmeek as needed along with Lyrica 150 daily and Cymbalta 30 mg daily. 9. Sjogren syndrome. Evoxac 30 mg 3 times a day 10. Hypothyroidism. Levothyroxine 75 g daily 11. Hyperlipidemia. Lipitor 10 mg daily 13. DVT prophylaxis. Lovenox 14. GI prophylaxis. Pantoprazole 40 mg daily The above impression and plan of care have been discussed and directed by signing physician. Leonarda Kign nurse practitioner acting as scribe for signing physician.
[2020-10-22] MEDS: FLUTICASONE 110 MCG INHALER INHALATION SCH ×2 (12:34→19:20)
[2020-10-22 16:44] LABS: Glucose,Whole Blood 296 mg/dL (75-99)
[2020-10-22] MEDS: MONTELUKAST 10 MG TAB PO SCH (17:11)
[2020-10-22] MEDS: PREGABALIN 75 MG CAP PO SCH (17:11)
[2020-10-22] MEDS: PIPERACILLIN-TAZOBACTAM 3.375 GM in SODIUM CHLORIDE 0.9% 100 ML IVPB SCH (17:12)
[2020-10-22] MEDS ORDERED: VANCOMYCIN IV PER PHARMACY 1 EACH MISC MISCELLANE PRN (19:52)
[2020-10-22] MEDS ORDERED: VANCOMYCIN 2,000 MG in SODIUM CHLORIDE 0.9% 500 ML 500 ML IVPB ONE (20:30)
[2020-10-22] MEDS: MELATONIN 1 MG TAB PO SCH (20:55)
[2020-10-22] MEDS: INSULIN DETEMIR (LEVEMIR) 100 UNIT/ML SYR SQ SCH (20:55)
[2020-10-22 20:57] LABS: Glucose,Whole Blood 278 mg/dL (75-99)
[2020-10-23] MEDS: PIPERACILLIN-TAZOBACTAM 3.375 GM in SODIUM CHLORIDE 0.9% 100 ML IVPB SCH ×3 (00:47→16:18)
[2020-10-23] MEDS: MENTHOL-ZINC OXIDE OINT 113 GM TUBE TOPICAL SCH ×2 (05:27→17:59)
[2020-10-23 06:48] LABS: Basophils % (A) 0 %; Eosinophils # (A) 0.1 k/uL (0-0.7); Eosinophils % (A) 1 %; HCT 44.3 % (34.0-46.0); HGB 14.7 gm/dL (11.4-16.0); Lymphocytes # (A) 1.3 k/uL (1.0-4.8); Lymphocytes % (A) 14 %; MCH 29.9 pg (25.0-35.0); MCHC 33.2 g/dL (31.0-37.0); Mean Platelet Volume 8.8; Monocytes # (A) 0.5 k/uL (0-1.0); Monocytes % (A) 6 %; Neutrophils # (A) 7.2 k/uL (1.3-7.7); Neutrophils % (A) 78 %; Platelet Count 191 k/uL (150-450); RBC 4.92 m/uL (3.80-5.40); RDW 13.7 % (11.5-15.5); WBC 9.3 k/uL (3.8-10.6)
--- NOTE | 2020-10-23 07:22 | XR ---
EXAMINATION TYPE: XR chest 1V DATE OF EXAM: 10/23/2020 COMPARISON: 10/21/2020 HISTORY: Cough TECHNIQUE: Single frontal view of the chest is obtained. FINDINGS: Heart is prominent there is left lower lobe infiltrate. No pleural effusion. Mild intersti tial prominence is improved. No pneumothorax. Arthropathy of the shoulders. IMPRESSION: 1. Cardiomegaly with left lower lobe infiltrate. Interstitium appears improved.
[2020-10-23 07:44] LABS: Glucose,Whole Blood 282 mg/dL (75-99)
[2020-10-23] MEDS: INSULIN ASPART (NovoLOG) 100 UNIT/ML VIAL SQ SCH ×3 (08:31→17:55)
[2020-10-23] MEDS: ENOXAPARIN 40 MG/0.4 ML SYRINGE SQ SCH (08:32)
[2020-10-23] MEDS: SENNOSIDES 8.6 MG TAB PO SCH ×2 (08:33→17:55)
[2020-10-23] MEDS: DULoxetine HCL 30 MG CAPSULE.DR PO SCH ×2 (08:33→22:14)
[2020-10-23] MEDS: PANTOPRAZOLE 40 MG TABLET PO SCH (08:33)
[2020-10-23] MEDS: FUROSEMIDE 40 MG TAB PO SCH (08:33)
[2020-10-23] MEDS: ALPRAZolam 0.25 MG TAB PO SCH ×3 (08:34→17:55)
[2020-10-23] MEDS: amLODIPine 5 MG TAB PO SCH ×2 (08:34→17:55)
[2020-10-23] MEDS: ASCORBIC ACID 500 MG TAB PO SCH (08:34)
[2020-10-23] MEDS: LEVOTHYROXINE 75 MCG TAB PO SCH (08:34)
[2020-10-23] MEDS: CHOLECALCIFEROL 1,000 UNIT TAB PO SCH (08:34)
[2020-10-23] MEDS: ATORVASTATIN 10 MG TAB PO SCH (08:34)
[2020-10-23] MEDS: POTASSIUM CHLORIDE ER 10 MEQ TAB.ER.PRT PO SCH (08:34)
[2020-10-23] MEDS: NALDEMEDINE TOSYLATE 0.2 MG PO SCH (08:35)
[2020-10-23] MEDS: DEXAMETHASONE SOD PHOSPHATE 10 MG/ML 1 ML VIAL IV SCH (08:35)
[2020-10-23] MEDS: CEVIMELINE 30 MG CAP PO SCH ×3 (08:36→17:50)
[2020-10-23] MEDS: FLUTICASONE 50MCG/SPRAY NASAL 16GM EA NOSTRIL SCH ×2 (08:37→18:00)
[2020-10-23] MEDS: guaiFENesin 600 MG TABLET.ER PO SCH ×2 (08:44→22:14)
[2020-10-23] MEDS: VANCOMYCIN 1,750 MG in SODIUM CHLORIDE 0.9% 500 ML 500 ML IVPB SCH ×2 (09:01→21:00)
[2020-10-23 10:55] LABS: African American GFR (CKD) 100.3 (60.0-200.0); Albumin 4.1 g/dL (3.80-4.90); Albumin/Globulin Ratio 2.41 (1.60-3.17); Anion Gap 10.5 mmol/L (4.00-12.00); BUN/Creat Ratio 31.43 Ratio (12.00-20.00); Calcium 8.8 mg/dL (8.7-10.3); Carbon Dioxide 24.5 mmol/L (21.6-31.8); Globulin 1.7 g/dL (1.6-3.3); Magnesium 2.2 mg/dL (1.5-2.4); Non-African American GFR(CKD) 86.6 (60.0-200.0); Phosphorus 3.2 mg/dL (2.4-5.1); Potassium 3.4 mmol/L (3.5-5.5); Total Bilirubin 0.4 mg/dL (0.2-1.2); Total Protein 5.8 g/dL (6.2-8.2)
[2020-10-23] MEDS: ALBUTEROL HFA INHALER INHALATION SCH ×4 (11:30→19:52)
[2020-10-23] MEDS: FLUTICASONE 110 MCG INHALER INHALATION SCH ×2 (11:30→19:52)
[2020-10-23 11:42] LABS: Glucose,Whole Blood 277 mg/dL (75-99)
--- NOTE | 2020-10-23 13:26 | P.PN ---
Subjective Progress Note Date: 10/23/20 Principal diagnosis: Acute hypoxic respiratory failure, code 19 pneumonitis, decrease of consciousness, aspiration pneumonia, type 2 diabetes, advanced dementia. This is a 70-year-old female patient of Dr. Amador, with a past medical history of diabetes mellitus type 2, fibromyalgia, chronic pain, asthma, hypothyroidism, Sojourn's syndrome, dementia and migraines. 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 During routine testing at the [facility], she was noted to be COVI D positive. She was doing well with mild symptoms until she was noted by the staff to become less responsive and noted to have more generalized weakness. She was transferred to the hospital. Chest x-ray showed interstitial pulmonary density but no obvious heart failure and coarsening of interstitial markings. Head CT shows cerebral atrophy and chronic small vessel ischemia with no acute intracranial abnormality. Laboratory values showed WBC 6.1, hemoglobin 16, platelet 207, BUN 22, creatinine 0.59, sodium 140, potassium 4.1 C-reactive protein 7.8, LDH 494 CK 37. UA was obtained and is positive for urinary tract infection. There is concern for possible aspiration pneumonia, patient was started on IV Zosyn, pulmonary on consult and started Remdesivir and dexamethasone. 10/23: Patient is doing slightly better, her oxygen level has improved significantly last 24 hours. Patient still seen pulmonary continue antiviral and Covid 19 resume treatment, pulse oximetry continue to improve patient still debilitated and bedridden with more help to be in the chair in the next day or 2 we'll continue PT and might need evaluation came by speech. Repeat chest x-ray and lab tomorrow Objective - Vital Signs Vital signs: Vital Signs Temp 98.3 F 10/23/20 10:00 Pulse 62 10/23/20 10:00 Resp 20 10/23/20 10:00 BP 135/78 10/23/20 10:00 Pulse Ox 99 10/23/20 10:00 Intake & Output 10/22/20 10/23/20 10/23/20 18:59 06:59 18:59 Output Total 500 500 Balance -500 -500 Output: Urine 500 500 Other: Voiding Method Indwelling Catheter Indwelling Catheter - Exam Review of Systems Constitutional: Reports chills, Reports chronic pain, Reports fatigue, Reports weakness, Denies fever Ears, nose, mouth and throat: Reports dysphagia, Reports voice changes, Denies headache, Denies nasal congestion, Denies nasal discharge, Denies odynophagia, Denies sinus pain, Denies sinus pressure, Denies sore throat Cardiovascular: Reports dyspnea on exertion, Reports leg edema, Reports shortness of breath, Denies edema, Denies orthopnea, Denies palpitations Respiratory: Reports congestion, Reports cough, Reports dyspnea, Denies pain, Denies wheezing Gastrointestinal: Reports loss of appetite, Denies constipation, Denies diarrhea, Denies dyspepsia, Denies heartburn, Denies nausea, Denies vomiting Musculoskeletal: Reports gait dysfunction, Denies fractures, Denies frequent falls, Denies low back pain, Denies neck stiffness Integumentary: Denies dryness, Denies lesions, Denies rash, Denies wounds Neurological: Reports confusion, Reports weakness, Denies headaches, Denies numbness, Denies paralysis, Denies syncope Endocrine: Reports fatigue Hematologic/Lymphatic: Denies lymphadenopathy Physical Exam Vitals: Vital Signs Temp Pulse Pulse Resp BP BP Pulse Ox 10/22/20 10:20 98.7 F 70 22 117/68 98 10/22/20 05:15 98.2 F 58 L 15 114/70 99 10/22/20 02:08 16 10/22/20 01:35 99.0 F 68 18 144/72 99 10/22/20 00:36 70 16 102/50 97 10/21/20 23:45 68 18 109/47 98 10/21/20 22:50 98.4 F 69 15 111/54 94 L Intake and Output 10/21/20 10/22/20 10/22/20 22:59 06:59 14:59 Intake Total 0 Output Total 100 Balance -100 Intake: Oral 0 Output: Urine 100 Other: Voiding Method Indwelling Catheter Weight 104.326 kg 104.326 kg - Constitutional General appearance: cooperative, mild distress, obese - EENT Eyes: no abnormal pupil, EOMI, PERRLA, fundus normal, normal appearance ENT: hearing grossly normal, normal oropharynx, no pharyngeal erythema, no thrush - Neck Neck: no lymphadenopathy, normal ROM, no thyromegaly - Respiratory Respiratory: bilateral: diminished, negative: dullness, rales, rhonchi, wheezing - Cardiovascular Rhythm: regular Heart sounds: normal: S1, S2 - Gastrointestinal General gastrointestinal: no decreased bowel sounds, no distended, no hepatomegaly, normal bowel sounds, no organomegaly, soft, no tenderness - Integumentary Integumentary: normal, normal turgor, no rash - Neurologic Neurologic: CNII-XII intact - Musculoskeletal Musculoskeletal: generalized weakness, strength equal bilaterally, no right sided weakness, no left sided weakness - Psychiatric confusion - Labs CBC & Chem 7: 10/23/20 06:33 10/23/20 06:33 Labs: Abnormal Lab Results - Last 24 Hours (Table) 10/22/20 10/22/20 10/23/20 Range/Units 16:35 20:55 06:33 Potassium 3.4 L (3.5-5.5) mmol/L BUN/Creatinine Ratio 31.43 H (12.00-20.00) Ratio Glucose 239 H (70-110) mg/dL POC Glucose (mg/dL) 296 H 278 H (75-99) mg/dL Total Protein 5.8 L (6.2-8.2) g/dL 10/23/20 10/23/20 Range/Units 07:33 11:40 Potassium (3.5-5.5) mmol/L BUN/Creatinine Ratio (12.00-20.00) Ratio Glucose (70-110) mg/dL POC Glucose (mg/dL) 282 H 277 H (75-99) mg/dL Total Protein (6.2-8.2) g/dL Microbiology - Last 24 Hours (Table) 10/21/20 23:06 Urine Culture - Preliminary Urine,Clean Catch Gram Neg Bacilli 10/21/20 23:06 Blood Culture Gram Stain - Preliminary Blood 10/21/20 23:06 Blood Culture - Final Blood Assessment and Plan Assessment: 1. Acute hypoxic respiratory failure. Continue Decadron 6 mg IV push every 6 hours and supplemental oxygen, encourage incentive spirometry pulmonary on consult. 2. Altered mental status secondary to sepsis. Will treat underlying infection 3. COVID 19 pneumonia. Pulmonary on consult, Remdesivir IV for 5 days, dexamethasone 6 mg IV every 12 hours, supplemental oxygen. 4. Sepsis secondary to urinary tract infection. And aspiration pneumonia, continue to watch culture continue IV antibiotics with Zosyn for now. Urine culture pending 5. Aspiration pneumonia. Started on Zosyn, will also obtain swallow evaluation. 6. Type 2 diabetes mellitus. Accu-Cheks with sliding scale coverage and Levemir 17 units at at bedtime. 7. Hypertension and hypertensive cardiovascular disease. On Norvasc 5 mg twice a day 8. Fibromyalgia with chronic pain. Continue [place] as needed along with Lyrica 150 daily and Cymbalta 30 mg daily. 9. Sjogren syndrome. Evoxac 30 mg 3 times a day 10. Hypothyroidism. Levothyroxine 75 g daily 11. Hyperlipidemia. Lipitor 10 mg daily 13. DVT prophylaxis. Lovenox Debility: Continue PT we will advance management if possible. Discharge planning: Possibly back to [facility] on Sunday
[2020-10-23] MEDS: ZINC SULFATE 220 MG CAP PO SCH (13:29)
[2020-10-23] MEDS: REMDESIVIR 100 MG in SODIUM CHLORIDE 0.9% 250 ML IVPB SCH (13:46)
[2020-10-23 17:14] LABS: Glucose,Whole Blood 190 mg/dL (75-99)
[2020-10-23] MEDS: MONTELUKAST 10 MG TAB PO SCH (17:55)
[2020-10-23] MEDS: PREGABALIN 75 MG CAP PO SCH (17:56)
[2020-10-23 21:11] LABS: Glucose,Whole Blood 171 mg/dL (75-99)
[2020-10-23] MEDS: HYDROcodone/APAP 10-325MG 1 EACH TAB PO PRN (22:11)
[2020-10-23] MEDS: MELATONIN 1 MG TAB PO SCH (22:14)
[2020-10-23] MEDS: INSULIN DETEMIR (LEVEMIR) 100 UNIT/ML SYR SQ SCH (22:14)
--- NOTE | 2020-10-23 22:33 | P.PN ---
Subjective Progress Note Date: 10/23/20 Principal diagnosis: Altered mental status due to sepsis Acute hypoxic respiratory failure Covid 19 pneumonia Sepsis due to Urinary tract infection Aspiration pneumonia Insulin-dependent type 2 diabetes mellitus Hypertension hypertensive cardiovascular disease 10/23/2020, patient seen eval examined during the rounds labs reviewed medications reviewed mom overall relatively more awake now patient remains on broad-spectrum antibiotics, along with IV REMdesivir and Decadron, with supplemental oxygen, remains afebrile with the saturation of 93% on 2 L, hemodynamic status stable, chest x-ray performed today showing left lower lobe infiltrate, prominent interstitium/interstitial pneumonia infiltrate cannot be excluded likely related to Covid 19 pneumonia, blood culture at the time admission was positive for staph this patient however repeat blood cultures are negative, however urine culture is positive for gram-negative bacilli Patient is a 70-year-old female with the ongoing progressive confusion patient is a resident [facility] she was noted to be more weak and poorly responsive came into the hospital patient is on soft mechanical diet currently, would recommend a speech and swallow evaluation, patient is noted to be covid positive as well, labs are significant for hemoconcentration, and also slightly dehydration with elevated BUNs and creatinines normal, slight hypercapnia glycemia is noted as well, urinalysis is suggestive of ongoing urinary tract infection with large leukocyte esterase with bacteria and mucus urine culture is pending, currently patient is on IV Zosyn for urinary tract infection and possible aspiration pneumonia, brain CT noted to have chronic small vessel disease, chest x-ray however noted to have coarse bilateral interstitial marking consistent with Covid 19 pneumonia, along with cardiomegaly Objective - Vital Signs Vital signs: Vital Signs Temp 97.3 F L 10/23/20 18:17 Pulse 73 10/23/20 18:17 Resp 20 10/23/20 18:17 BP 150/77 10/23/20 18:17 Pulse Ox 93 L 10/23/20 18:17 Intake & Output 10/23/20 10/23/20 10/24/20 06:59 18:59 06:59 Intake Total 600 Output Total 500 700 Balance -500 -100 Intake: Oral 600 Output: Urine 500 700 Other: Voiding Method Indwelling Catheter Indwelling Catheter - Exam - Constitutional General appearance: average body habitus, disheveled - EENT Eyes: PERRLA Ears: bilateral: normal - Neck Neck: normal ROM Carotids: bilateral: upstroke normal Thyroid: bilateral: normal size - Respiratory Respiratory: bilateral: diminished - Cardiovascular Rhythm: regular Heart sounds: normal: S1, S2 - Gastrointestinal General gastrointestinal: normal bowel sounds, soft - Musculoskeletal Musculoskeletal: generalized weakness - Psychiatric More awake and alert compared to yesterday exam - Labs CBC & Chem 7: 10/23/20 06:33 10/23/20 06:33 Labs: Abnormal Lab Results - Last 24 Hours (Table) 10/23/20 10/23/20 10/23/20 Range/Units 06:33 07:33 11:40 Potassium 3.4 L (3.5-5.5) mmol/L BUN/Creatinine Ratio 31.43 H (12.00-20.00) Ratio Glucose 239 H (70-110) mg/dL POC Glucose (mg/dL) 282 H 277 H (75-99) mg/dL Total Protein 5.8 L (6.2-8.2) g/dL 10/23/20 10/23/20 Range/Units 17:03 21:07 Potassium (3.5-5.5) mmol/L BUN/Creatinine Ratio (12.00-20.00) Ratio Glucose (70-110) mg/dL POC Glucose (mg/dL) 190 H 171 H (75-99) mg/dL Total Protein (6.2-8.2) g/dL Microbiology - Last 24 Hours (Table) 10/21/20 23:06 Blood Culture Gram Stain - Preliminary Blood Blood Culture - Preliminary Staphylococcus species 10/22/20 11:31 Blood Culture - Preliminary Blood No Growth after 24 hours 10/21/20 23:06 Urine Culture - Preliminary Urine,Clean Catch Gram Neg Bacilli 10/21/20 23:06 Blood Culture - Final Blood Assessment and Plan Assessment: Altered mental status due to sepsis Acute hypoxic respiratory failure Left lower lobe aspiration pneumonia Covid 19 pneumonia Sepsis due to Urinary tract infection, Covid 19 pneumonia, aspiration pneumonia UTI related to gram-negative bacilli Staph species she blood likely contaminant Insulin-dependent type 2 diabetes mellitus Hypertension hypertensive cardiovascular disease Plan: Continue IV Zosyn REMdesivir IV for 5 days Decadron 6 mg IV every 12 Supplemental oxygen on the deep breathing exercise incentive spirometry Prone positioning if possible A speech to evaluate for swallow evaluation Repeat chest x-ray reviewed Further recommendations pending plan of care as per clinical response of the patient Time with Patient: Greater than 30
[2020-10-24] MEDS: MENTHOL-ZINC OXIDE OINT 113 GM TUBE TOPICAL SCH ×2 (06:14→16:03)
[2020-10-24 07:07] LABS: Glucose,Whole Blood 289 mg/dL (75-99)
[2020-10-24] MEDS: VANCOMYCIN 1,750 MG in SODIUM CHLORIDE 0.9% 500 ML 500 ML IVPB SCH ×2 (07:11→20:12)
[2020-10-24] MEDS: INSULIN ASPART (NovoLOG) 100 UNIT/ML VIAL SQ SCH ×3 (07:16→16:27)
[2020-10-24] MEDS: PANTOPRAZOLE 40 MG TABLET PO SCH (07:17)
[2020-10-24] MEDS: ASCORBIC ACID 500 MG TAB PO SCH (07:17)
[2020-10-24] MEDS: ENOXAPARIN 40 MG/0.4 ML SYRINGE SQ SCH (07:17)
[2020-10-24] MEDS: FUROSEMIDE 40 MG TAB PO SCH (07:18)
[2020-10-24] MEDS: amLODIPine 5 MG TAB PO SCH ×2 (07:18→16:01)
[2020-10-24] MEDS: LEVOTHYROXINE 75 MCG TAB PO SCH (07:18)
[2020-10-24] MEDS: POTASSIUM CHLORIDE ER 10 MEQ TAB.ER.PRT PO SCH (07:18)
[2020-10-24] MEDS: ZINC SULFATE 220 MG CAP PO SCH (07:18)
[2020-10-24] MEDS: ALPRAZolam 0.25 MG TAB PO SCH ×3 (07:18→16:01)
[2020-10-24] MEDS: ATORVASTATIN 10 MG TAB PO SCH (07:18)
[2020-10-24] MEDS: SENNOSIDES 8.6 MG TAB PO SCH ×2 (07:19→16:01)
[2020-10-24] MEDS: CHOLECALCIFEROL 1,000 UNIT TAB PO SCH (07:20)
[2020-10-24] MEDS: NALDEMEDINE TOSYLATE 0.2 MG PO SCH (07:20)
[2020-10-24] MEDS: CEVIMELINE 30 MG CAP PO SCH ×3 (07:20→16:02)
[2020-10-24] MEDS: FLUTICASONE 50MCG/SPRAY NASAL 16GM EA NOSTRIL SCH ×2 (07:21→16:02)
[2020-10-24] MEDS: guaiFENesin 600 MG TABLET.ER PO SCH ×2 (07:22→20:15)
[2020-10-24] MEDS: DEXAMETHASONE SOD PHOSPHATE 10 MG/ML 1 ML VIAL IV SCH (07:28)
[2020-10-24] MEDS: ALBUTEROL HFA INHALER INHALATION SCH ×4 (09:25→19:32)
[2020-10-24] MEDS: FLUTICASONE 110 MCG INHALER INHALATION SCH ×2 (09:25→19:26)
[2020-10-24] MEDS: PIPERACILLIN-TAZOBACTAM 3.375 GM in SODIUM CHLORIDE 0.9% 100 ML IVPB SCH ×4 (10:27→16:02)
[2020-10-24 11:55] LABS: Glucose,Whole Blood 167 mg/dL (75-99)
[2020-10-24] MEDS: REMDESIVIR 100 MG in SODIUM CHLORIDE 0.9% 250 ML IVPB SCH (11:59)
[2020-10-24 12:10] LABS: African American GFR (CKD) 112.1 (60.0-200.0); Non-African American GFR(CKD) 96.7 (60.0-200.0)
[2020-10-24] MEDS: PREGABALIN 75 MG CAP PO SCH (16:01)
[2020-10-24] MEDS: MONTELUKAST 10 MG TAB PO SCH (16:01)
[2020-10-24 16:21] LABS: Glucose,Whole Blood 255 mg/dL (75-99)
[2020-10-24] MEDS ORDERED: VANCOMYCIN TROUGH DUE 1 EACH MISC MISCELLANE ONE (20:00)
[2020-10-24 20:27] LABS: Glucose,Whole Blood 233 mg/dL (75-99)
[2020-10-24] MEDS: MELATONIN 1 MG TAB PO SCH (22:10)
[2020-10-24] MEDS: INSULIN DETEMIR (LEVEMIR) 100 UNIT/ML SYR SQ SCH (22:10)
[2020-10-24] MEDS: HYDROcodone/APAP 10-325MG 1 EACH TAB PO PRN (22:39)
--- NOTE | 2020-10-24 22:50 | P.PN ---
Subjective Progress Note Date: 10/24/20 Principal diagnosis: Altered mental status due to sepsis Acute hypoxic respiratory failure Covid 19 pneumonia Sepsis due to Urinary tract infection Aspiration pneumonia Insulin-dependent type 2 diabetes mellitus Hypertension hypertensive cardiovascular disease 10/24/2020, patient seen eval examined during the rounds labs reviewed medications reviewed care plan discussed, respiratory status remained stable, patient is 95% room air with stable hemodynamics, 10/23/2020, patient seen eval examined during the rounds labs reviewed medications reviewed mom overall relatively more awake now patient remains on broad-spectrum antibiotics, along with IV REMdesivir and Decadron, with supplemental oxygen, remains afebrile with the saturation of 93% on 2 L, hemodynamic status stable, chest x-ray performed today showing left lower lobe infiltrate, prominent interstitium/interstitial pneumonia infiltrate cannot be excluded likely related to Covid 19 pneumonia, blood culture at the time admission was positive for staph this patient however repeat blood cultures are negative, however urine culture is positive for gram-negative bacilli Patient is a 70-year-old female with the ongoing progressive confusion patient is a resident of [facility] care facility she was noted to be more weak and poorly responsive came into the hospital patient is on soft mechanical diet currently, would recommend a speech and swallow evaluation, patient is noted to be covid positive as well, labs are significant for hemoconcentration, and also slightly dehydration with elevated BUNs and creatinines normal, slight hypercapnia glycemia is noted as well, urinalysis is suggestive of ongoing urinary tract infection with large leukocyte esterase with bacteria and mucus urine culture is pending, currently patient is on IV Zosyn for urinary tract infection and possible aspiration pneumonia, brain CT noted to have chronic small vessel disease, chest x-ray however noted to have coarse bilateral interstitial marking consistent with Covid 19 pneumonia, along with cardiomegaly Objective - Vital Signs Vital signs: Vital Signs Temp 98.5 F 10/24/20 21:24 Pulse 82 10/24/20 21:24 Resp 15 10/24/20 21:24 BP 159/74 10/24/20 21:24 Pulse Ox 95 10/24/20 21:24 Intake & Output 10/24/20 10/24/20 10/25/20 06:59 18:59 06:59 Intake Total 950 600 Output Total 4100 Balance 950 -3500 Intake: Intake, IV Titration 600 Amount Piperacillin-Tazobactam 3 100 .375 gm In Sodium Chloride 0.9% 100 ml @ 25 mls/hr IVPB Q8HR [facility] Rx# :[id number] Vancomycin 1,750 mg In 500 Sodium Chloride 0.9% 500 ml 500 ml @ 167 mls/hr IVPB Q12HR [facility] Rx#: [id number] Oral 350 600 Output: Urine 4100 Other: Voiding Method Indwelling Catheter Indwelling Catheter - Exam - Constitutional General appearance: average body habitus, disheveled - EENT Eyes: PERRLA Ears: bilateral: normal - Neck Neck: normal ROM Carotids: bilateral: upstroke normal Thyroid: bilateral: normal size - Respiratory Respiratory: bilateral: diminished - Cardiovascular Rhythm: regular Heart sounds: normal: S1, S2 - Gastrointestinal General gastrointestinal: normal bowel sounds, soft - Musculoskeletal Musculoskeletal: generalized weakness - Psychiatric More awake and alert compared to yesterday exam - Labs CBC & Chem 7: 10/23/20 06:33 10/24/20 06:50 Labs: Abnormal Lab Results - Last 24 Hours (Table) 10/24/20 10/24/20 10/24/20 Range/Units 06:50 07:05 11:49 Creatinine 0.5 L (0.6-1.5) mg/dL POC Glucose (mg/dL) 289 H 167 H (75-99) mg/dL 10/24/20 10/24/20 Range/Units 16:19 20:25 Creatinine (0.6-1.5) mg/dL POC Glucose (mg/dL) 255 H 233 H (75-99) mg/dL Microbiology - Last 24 Hours (Table) 10/21/20 23:06 Blood Culture Gram Stain - Final Blood Blood Culture - Final Staphylococcus epidermidis 10/22/20 11:31 Blood Culture - Preliminary Blood No Growth after 48 hours 10/21/20 23:06 Urine Culture - Final Urine,Clean Catch Escherichia coli 10/23/20 06:33 Blood Culture - Preliminary Blood No Growth after 24 hours Assessment and Plan Assessment: Altered mental status due to sepsis Acute hypoxic respiratory failure Left lower lobe aspiration pneumonia Covid 19 pneumonia Sepsis due to Urinary tract infection, Covid 19 pneumonia, aspiration pneumonia UTI related to gram-negative bacilli Staph species she blood likely contaminant Insulin-dependent type 2 diabetes mellitus Hypertension hypertensive cardiovascular disease Plan: Continue IV Zosyn REMdesivir IV for 5 days Decadron 6 mg IV every 12 Supplemental oxygen on the deep breathing exercise incentive spirometry Prone positioning if possible A speech to evaluate for swallow evaluation Repeat chest x-ray reviewed Further recommendations pending plan of care as per clinical response of the patient Time with Patient: Greater than 30
[2020-10-25] MEDS: PIPERACILLIN-TAZOBACTAM 3.375 GM in SODIUM CHLORIDE 0.9% 100 ML IVPB SCH ×4 (00:04→23:09)
--- NOTE | 2020-10-25 05:24 | P.PN ---
Subjective Progress Note Date: 10/24/20 Principal diagnosis: Acute hypoxic respiratory failure, code 19 pneumonitis, decrease of consciousness, aspiration pneumonia, type 2 diabetes, advanced dementia. This is a 70-year-old female patient of Dr. Amador, with a past medical history of diabetes mellitus type 2, fibromyalgia, chronic pain, asthma, hypothyroidism, Sojourn's syndrome, dementia and migraines. Patient is resident a [facility] resident at [facility]. During routine testing at the [facility], she was noted to be COVI D positive. She was doing well with mild symptoms until she was noted by the staff to become less responsive and noted to have more generalized weakness. She was transferred to the hospital. Chest x-ray showed interstitial pulmonary density but no obvious heart failure and coarsening of interstitial markings. Head CT shows cerebral atrophy and chronic small vessel ischemia with no acute intracranial abnormality. Laboratory values showed WBC 6.1, hemoglobin 16, platelet 207, BUN 22, creatinine 0.59, sodium 140, potassium 4.1 C-reactive protein 7.8, LDH 494 CK 37. UA was obtained and is positive for urinary tract infection. There is concern for possible aspiration pneumonia, patient was started on IV Zosyn, pulmonary on consult and started Remdesivir and dexamethasone. 10/23: Patient is doing slightly better, her oxygen level has improved significantly last 24 hours. Patient still seen pulmonary continue antiviral and Covid 19 resume treatment, pulse oximetry continue to improve patient still debilitated and bedridden with more help to be in the chair in the next day or 2 we'll continue PT and might need evaluation came by speech. Repeat chest x-ray and lab tomorrow. 10/24: Patient clinically doing much better she is requiring less O2 to keep her sats above 90 percentile so far, fever and chills has improved significantly, the constitutional generalized symptom patient has still exist but mostly from UTI bronchitis more than the Covid pneumonitis itself. Agree with pulmonary management patient will continue current treatment and prepare for returning to [facility] sometimes in the next 48 hours. Objective - Vital Signs Vital signs: Vital Signs Temp 98.2 F 10/24/20 02:14 Pulse 69 10/24/20 02:14 Resp 20 10/24/20 02:14 BP 132/74 10/24/20 02:14 Pulse Ox 94 L 10/24/20 02:14 Intake & Output 10/23/20 10/23/20 10/24/20 06:59 18:59 06:59 Intake Total 600 950 Output Total 500 700 Balance -500 -100 950 Intake: Intake, IV Titration 600 Amount Piperacillin-Tazobactam 3 100 .375 gm In Sodium Chloride 0.9% 100 ml @ 25 mls/hr IVPB Q8HR [facility] Rx# :[id number] Vancomycin 1,750 mg In 500 Sodium Chloride 0.9% 500 ml 500 ml @ 167 mls/hr IVPB Q12HR [facility] Rx#: [id number] Oral 600 350 Output: Urine 500 700 Other: Voiding Method Indwelling Catheter Indwelling Catheter Indwelling Catheter - Exam Review of Systems Constitutional: Reports chills, Reports chronic pain, Reports fatigue, Reports weakness, Denies fever Ears, nose, mouth and throat: Reports dysphagia, Reports voice changes, Denies headache, Denies nasal congestion, Denies nasal discharge, Denies odynophagia, Denies sinus pain, Denies sinus pressure, Denies sore throat Cardiovascular: Reports dyspnea on exertion, Reports leg edema, Reports shortness of breath, Denies edema, Denies orthopnea, Denies palpitations Respiratory: Reports congestion, Reports cough, Reports dyspnea, Denies pain, Denies wheezing Gastrointestinal: Reports loss of appetite, Denies constipation, Denies diarrhea, Denies dyspepsia, Denies heartburn, Denies nausea, Denies vomiting Musculoskeletal: Reports gait dysfunction, Denies fractures, Denies frequent falls, Denies low back pain, Denies neck stiffness Integumentary: Denies dryness, Denies lesions, Denies rash, Denies wounds Neurological: Reports confusion, Reports weakness, Denies headaches, Denies numbness, Denies paralysis, Denies syncope Endocrine: Reports fatigue Hematologic/Lymphatic: Denies lymphadenopathy Physical Exam Vitals: Vital Signs Temp Pulse Pulse Resp BP BP Pulse Ox 10/22/20 10:20 98.7 F 70 22 117/68 98 10/22/20 05:15 98.2 F 58 L 15 114/70 99 10/22/20 02:08 16 10/22/20 01:35 99.0 F 68 18 144/72 99 10/22/20 00:36 70 16 102/50 97 10/21/20 23:45 68 18 109/47 98 10/21/20 22:50 98.4 F 69 15 111/54 94 L Intake and Output 10/21/20 10/22/20 10/22/20 22:59 06:59 14:59 Intake Total 0 Output Total 100 Balance -100 Intake: Oral 0 Output: Urine 100 Other: Voiding Method Indwelling Catheter Weight 104.326 kg 104.326 kg - Constitutional General appearance: cooperative, mild distress, obese - EENT Eyes: no abnormal pupil, EOMI, PERRLA, fundus normal, normal appearance ENT: hearing grossly normal, normal oropharynx, no pharyngeal erythema, no thrush - Neck Neck: no lymphadenopathy, normal ROM, no thyromegaly - Respiratory Respiratory: bilateral: diminished, negative: dullness, rales, rhonchi, wheezing - Cardiovascular Rhythm: regular Heart sounds: normal: S1, S2 - Gastrointestinal General gastrointestinal: no decreased bowel sounds, no distended, no hepatomegaly, normal bowel sounds, no organomegaly, soft, no tenderness - Integumentary Integumentary: normal, normal turgor, no rash - Neurologic Neurologic: CNII-XII intact - Musculoskeletal Musculoskeletal: generalized weakness, strength equal bilaterally, no right sided weakness, no left sided weakness - Psychiatric confusion - Labs CBC & Chem 7: 10/23/20 06:33 10/24/20 06:50 Labs: Abnormal Lab Results - Last 24 Hours (Table) 10/23/20 10/23/20 10/23/20 Range/Units 06:33 07:33 11:40 Potassium 3.4 L (3.5-5.5) mmol/L BUN/Creatinine Ratio 31.43 H (12.00-20.00) Ratio Glucose 239 H (70-110) mg/dL POC Glucose (mg/dL) 282 H 277 H (75-99) mg/dL Total Protein 5.8 L (6.2-8.2) g/dL 10/23/20 10/23/20 Range/Units 17:03 21:07 Potassium (3.5-5.5) mmol/L BUN/Creatinine Ratio (12.00-20.00) Ratio Glucose (70-110) mg/dL POC Glucose (mg/dL) 190 H 171 H (75-99) mg/dL Total Protein (6.2-8.2) g/dL Microbiology - Last 24 Hours (Table) 10/21/20 23:06 Blood Culture Gram Stain - Preliminary Blood Blood Culture - Preliminary Staphylococcus species 10/22/20 11:31 Blood Culture - Preliminary Blood No Growth after 24 hours 10/21/20 23:06 Urine Culture - Preliminary Urine,Clean Catch Gram Neg Bacilli Assessment and Plan Assessment: 1. Acute hypoxic respiratory failure. Continue Decadron 6 mg IV push daily and supplemental oxygen, encourage incentive spirometry continue to follow pulmonary consultation recommendation 2. Altered mental status secondary to sepsis. Will treat underlying infection 3. COVID 19 pneumonia. Pulmonary on consult, Remdesivir IV for 5 days, dexamethasone 6 mg IV every 12 hours, supplemental oxygen. 4. Sepsis secondary to urinary tract infection. And aspiration pneumonia, continue to watch culture continue IV antibiotics with Zosyn for now. Urine culture pending 5. Aspiration pneumonia. Started on Zosyn, will also obtain swallow evaluation. 6. Type 2 diabetes mellitus. Accu-Cheks with sliding scale coverage and Levemir 17 units at at bedtime. 7. Hypertension and hypertensive cardiovascular disease. On Norvasc 5 mg twice a day 8. Fibromyalgia with chronic pain. Continue [place] as needed along with Lyrica 150 daily and Cymbalta 30 mg daily. 9. Sjogren syndrome. Evoxac 30 mg 3 times a day 10. Hypothyroidism. Levothyroxine 75 g daily 11. Hyperlipidemia. Lipitor 10 mg daily 13. DVT prophylaxis. Lovenox Debility: Continue PT we will advance management if possible. Discharge planning: Possibly back to [facility] on Sunday
[2020-10-25] MEDS: MENTHOL-ZINC OXIDE OINT 113 GM TUBE TOPICAL SCH ×2 (05:45→17:32)
[2020-10-25 07:01] LABS: Glucose,Whole Blood 157 mg/dL (75-99)
[2020-10-25] MEDS: ALBUTEROL HFA INHALER INHALATION SCH ×4 (08:37→19:32)
[2020-10-25] MEDS: FLUTICASONE 110 MCG INHALER INHALATION SCH ×2 (08:37→19:32)
[2020-10-25] MEDS: LEVOTHYROXINE 75 MCG TAB PO SCH (09:04)
[2020-10-25] MEDS: INSULIN ASPART (NovoLOG) 100 UNIT/ML VIAL SQ SCH ×3 (09:04→17:32)
[2020-10-25] MEDS: ENOXAPARIN 40 MG/0.4 ML SYRINGE SQ SCH (09:04)
[2020-10-25] MEDS: ALPRAZolam 0.25 MG TAB PO SCH ×3 (09:05→17:32)
[2020-10-25] MEDS: CEVIMELINE 30 MG CAP PO SCH ×3 (09:05→17:32)
[2020-10-25] MEDS: ZINC SULFATE 220 MG CAP PO SCH (09:05)
[2020-10-25] MEDS: DEXAMETHASONE SOD PHOSPHATE 10 MG/ML 1 ML VIAL IV SCH (09:05)
[2020-10-25] MEDS: ATORVASTATIN 10 MG TAB PO SCH (09:06)
[2020-10-25] MEDS: guaiFENesin 600 MG TABLET.ER PO SCH ×2 (09:06→21:03)
[2020-10-25] MEDS: CHOLECALCIFEROL 1,000 UNIT TAB PO SCH (09:06)
[2020-10-25] MEDS: ASCORBIC ACID 500 MG TAB PO SCH (09:06)
[2020-10-25] MEDS: amLODIPine 5 MG TAB PO SCH ×2 (09:06→17:32)
[2020-10-25] MEDS: PANTOPRAZOLE 40 MG TABLET PO SCH (09:06)
[2020-10-25] MEDS: SENNOSIDES 8.6 MG TAB PO SCH ×2 (09:06→17:31)
[2020-10-25] MEDS: NALDEMEDINE TOSYLATE 0.2 MG PO SCH (09:07)
[2020-10-25] MEDS: FUROSEMIDE 40 MG TAB PO SCH ×2 (09:07→09:09)
[2020-10-25] MEDS: DULoxetine HCL 30 MG CAPSULE.DR PO SCH ×2 (09:07→09:08)
[2020-10-25] MEDS: POTASSIUM CHLORIDE ER 10 MEQ TAB.ER.PRT PO SCH (09:07)
[2020-10-25] MEDS: FLUTICASONE 50MCG/SPRAY NASAL 16GM EA NOSTRIL SCH ×2 (09:14→17:32)
[2020-10-25 10:45] LABS: African American GFR (CKD) 105.5 (60.0-200.0); Non-African American GFR(CKD) 91.1 (60.0-200.0)
[2020-10-25] MEDS: VANCOMYCIN 2,000 MG in SODIUM CHLORIDE 0.9% 500 ML 500 ML IVPB SCH ×2 (11:10→21:03)
[2020-10-25 11:38] LABS: Glucose,Whole Blood 134 mg/dL (75-99)
--- NOTE | 2020-10-25 12:41 | P.PN ---
Subjective This is a 70-year-old female patient of Dr. Amador, with a past medical history of diabetes mellitus type 2, fibromyalgia, chronic pain, asthma, hypothyroidism, Sojourn's syndrome, dementia and migraines. Patient is resident a [employer] resident at [facility]. During routine testing at the [facility], she was noted to be COVID positive. She was doing well with mild symptoms until she was noted by the staff to become less responsive and noted to have more generalized weakness. She was transferred to the hospital. Chest x-ray showed interstitial pulmonary density but no obvious heart failure and coarsening of interstitial markings. Head CT shows cerebral atrophy and chronic small vessel ischemia with no acute intracranial abnormality. Laboratory values showed WBC 6.1, hemoglobin 16, platelet 207, BUN 22, creatinine 0.59, sodium 140, potassium 4.1 C-reactive protein 7.8, LDH 494 CK 37. UA was obtained and is positive for urinary tract infection. There is concern for possible aspiration pneumonia, patient was started on IV Zosyn, pulmonary on consult and started Remdesivir and dexamethasone. 10/23: Patient is doing slightly better, her oxygen level has improved significantly last 24 hours. Patient still seen pulmonary continue antiviral and Covid 19 resume treatment, pulse oximetry continue to improve patient still debilitated and bedridden with more help to be in the chair in the next day or 2 we'll continue PT and might need evaluation came by speech. Repeat chest x-ray and lab tomorrow. 10/24: Patient clinically doing much better she is requiring less O2 to keep her sats above 90 percentile so far, fever and chills has improved significantly, the constitutional generalized symptom patient has still exist but mostly from UTI bronchitis more than the Covid pneumonitis itself. Agree with pulmonary management patient will continue current treatment and prepare for returning to [facility] sometimes in the next 48 hours. 10/25: Patient continues to improve, does not require oxygen, she is 94% on room air, afebrile temperatures 98.7, heart rate is 87, respiratory rate 18, blood pressure 156/81. Blood cultures show no growth to date, She continues on Remdesivir day 4/5. Will most likely be discharged back to [facility] tomorrow. Objective - Vital Signs Vital signs: Vital Signs Temp 98.7 F 10/25/20 10:00 Pulse 87 10/25/20 10:00 Resp 18 10/25/20 10:00 BP 156/81 10/25/20 10:00 Pulse Ox 94 L 10/25/20 10:00 Intake & Output 10/24/20 10/25/20 10/25/20 18:59 06:59 18:59 Intake Total 600 900 Output Total 4100 700 Balance -3500 200 Intake: Intake, IV Titration 600 Amount Piperacillin-Tazobactam 3 100 .375 gm In Sodium Chloride 0.9% 100 ml @ 25 mls/hr IVPB Q8HR [facility] Rx# :[id number] Vancomycin 1,750 mg In 500 Sodium Chloride 0.9% 500 ml 500 ml @ 167 mls/hr IVPB Q12HR [facility] Rx#: [id number] Oral 600 300 Output: Urine 4100 700 Other: Voiding Method Indwelling Catheter Indwelling Catheter Indwelling Catheter - Exam - Constitutional General appearance: cooperative, mild distress, obese - EENT Eyes: no abnormal pupil, EOMI, PERRLA, fundus normal, normal appearance ENT: hearing grossly normal, normal oropharynx, no pharyngeal erythema, no thrush - Neck Neck: no lymphadenopathy, normal ROM, no thyromegaly - Respiratory Respiratory: bilateral: diminished, negative: dullness, rales, rhonchi, wheezing - Cardiovascular Rhythm: regular Heart sounds: normal: S1, S2 - Gastrointestinal General gastrointestinal: no decreased bowel sounds, no distended, no hepatomegaly, normal bowel sounds, no organomegaly, soft, no tenderness - Integumentary Integumentary: normal, normal turgor, no rash - Neurologic Neurologic: CNII-XII intact - Musculoskeletal Musculoskeletal: generalized weakness, strength equal bilaterally, no right sided weakness, no left sided weakness - Psychiatric confusion - Labs CBC & Chem 7: 10/23/20 06:33 10/25/20 06:27 Labs: Abnormal Lab Results - Last 24 Hours (Table) 10/24/20 10/24/20 10/25/20 Range/Units 16:19 20:25 07:00 POC Glucose (mg/dL) 255 H 233 H 157 H (75-99) mg/dL 10/25/20 Range/Units 11:35 POC Glucose (mg/dL) 134 H (75-99) mg/dL Microbiology - Last 24 Hours (Table) 10/23/20 06:33 Blood Culture - Preliminary Blood No Growth after 48 hours 10/21/20 23:06 Blood Culture Gram Stain - Final Blood Blood Culture - Final Staphylococcus epidermidis 10/22/20 11:31 Blood Culture - Preliminary Blood No Growth after 48 hours 10/21/20 23:06 Urine Culture - Final Urine,Clean Catch Escherichia coli Assessment and Plan Plan: 1. Acute hypoxic respiratory failure. Continue Decadron 6 mg IV push daily and supplemental oxygen, encourage incentive spirometry continue to follow pulmonary consultation recommendation 2. Altered mental status secondary to sepsis. Will treat underlying infection 3. COVID 19 pneumonia. Pulmonary on consult, Remdesivir IV for 5 days, dexamethasone 6 mg IV every 12 hours, supplemental oxygen. 4. Sepsis secondary to urinary tract infection. And aspiration pneumonia, continue to watch culture continue IV antibiotics with Zosyn for now. 5. Aspiration pneumonia. Started on Zosyn, will also obtain swallow evaluation. 6. Type 2 diabetes mellitus. Accu-Cheks with sliding scale coverage and Levemir 17 units at at bedtime. 7. Hypertension and hypertensive cardiovascular disease. On Norvasc 5 mg twice a day 8. Fibromyalgia with chronic pain. Continue [place] as needed along with Lyrica 150 daily and Cymbalta 30 mg daily. 9. Sjogren syndrome. Evoxac 30 mg 3 times a day 10. Hypothyroidism. Levothyroxine 75 g daily 11. Hyperlipidemia. Lipitor 10 mg daily 13. DVT prophylaxis. Lovenox The above impression and plan of care have been discussed and directed by [place] physician. Leonarda King nurse practitioner acting as scribe for signing physician.
[2020-10-25] MEDS: REMDESIVIR 100 MG in SODIUM CHLORIDE 0.9% 250 ML IVPB SCH (13:00)
--- NOTE | 2020-10-25 13:28 | P.PN ---
Subjective Progress Note Date: 10/25/20 Principal diagnosis: Altered mental status due to sepsis Acute hypoxic respiratory failure Covid 19 pneumonia Sepsis due to Urinary tract infection Aspiration pneumonia Insulin-dependent type 2 diabetes mellitus Hypertension hypertensive cardiovascular disease 10/25/2020, patient seen eval examined during the rounds labs reviewed medications reviewed care plan discussed, oxygen saturation remained stable on room air 94% now, generalized weakness however is present, patient is looking for placement, 10/24/2020, patient seen eval examined during the rounds labs reviewed medications reviewed care plan discussed, respiratory status remained stable, patient is 95% room air with stable hemodynamics, 10/23/2020, patient seen eval examined during the rounds labs reviewed medications reviewed mom overall relatively more awake now patient remains on broad-spectrum antibiotics, along with IV REMdesivir and Decadron, with supplemental oxygen, remains afebrile with the saturation of 93% on 2 L, hemodynamic status stable, chest x-ray performed today showing left lower lobe infiltrate, prominent interstitium/interstitial pneumonia infiltrate cannot be excluded likely related to Covid 19 pneumonia, blood culture at the time admission was positive for staph this patient however repeat blood cultures are negative, however urine culture is positive for gram-negative bacilli Patient is a 70-year-old female with the ongoing progressive confusion patient is a resident of the [facility] care facility she was noted to be more weak and poorly responsive came into the hospital patient is on soft mechanical diet currently, would recommend a speech and swallow evaluation, patient is noted to be covid positive as well, labs are significant for hemoconcentration, and also slightly dehydration with elevated BUNs and creatinines normal, slight hypercapnia glycemia is noted as well, urinalysis is suggestive of ongoing urinary tract infection with large leukocyte esterase with bacteria and mucus urine culture is pending, currently patient is on IV Zosyn for urinary tract infection and possible aspiration pneumonia, brain CT noted to have chronic small vessel disease, chest x-ray however noted to have coarse bilateral interstitial marking consistent with Covid 19 pneumonia, along with cardiomegaly Objective - Vital Signs Vital signs: Vital Signs Temp 98.7 F 10/25/20 10:00 Pulse 87 10/25/20 10:00 Resp 18 10/25/20 10:00 BP 156/81 10/25/20 10:00 Pulse Ox 94 L 10/25/20 10:00 Intake & Output 10/24/20 10/25/2010/25/20 18:59 06:59 18:59 Intake Total 600 900 Output Total 4100 700 Balance -3500 200 Intake: Intake, IV Titration 600 Amount Piperacillin-Tazobactam 3 100 .375 gm In Sodium Chloride 0.9% 100 ml @ 25 mls/hr IVPB Q8HR [facility] Rx# :[id number] Vancomycin 1,750 mg In 500 Sodium Chloride 0.9% 500 ml 500 ml @ 167 mls/hr IVPB Q12HR [facility] Rx#: [id number] Oral 600 300 Output: Urine 4100 700 Other: Voiding Method Indwelling Catheter Indwelling Catheter Indwelling Catheter - Exam - Constitutional General appearance: average body habitus, disheveled - EENT Eyes: PERRLA Ears: bilateral: normal - Neck Neck: normal ROM Carotids: bilateral: upstroke normal Thyroid: bilateral: normal size - Respiratory Respiratory: bilateral: diminished - Cardiovascular Rhythm: regular Heart sounds: normal: S1, S2 - Gastrointestinal General gastrointestinal: normal bowel sounds, soft - Musculoskeletal Musculoskeletal: generalized weakness - Psychiatric More awake and alert compared to yesterday exam - Labs CBC & Chem 7: 10/23/20 06:33 10/25/20 06:27 Labs: Abnormal Lab Results - Last 24 Hours (Table) 10/24/20 10/24/20 10/25/20 Range/Units 16:19 20:25 07:00 POC Glucose (mg/dL) 255 H 233 H 157 H (75-99) mg/dL 10/25/20 Range/Units 11:35 POC Glucose (mg/dL) 134 H (75-99) mg/dL Microbiology - Last 24 Hours (Table) 10/23/20 06:33 Blood Culture - Preliminary Blood No Growth after 48 hours 10/21/20 23:06 Blood Culture Gram Stain - Final Blood Blood Culture - Final Staphylococcus epidermidis 10/22/20 11:31 Blood Culture - Preliminary Blood No Growth after 48 hours 10/21/20 23:06 Urine Culture - Final Urine,Clean Catch Escherichia coli Assessment and Plan Assessment: Altered mental status due to sepsis Acute hypoxic respiratory failure Left lower lobe aspiration pneumonia Covid 19 pneumonia Sepsis due to Urinary tract infection, Covid 19 pneumonia, aspiration pneumonia UTI related to gram-negative bacilli Staph species she blood likely contaminant Insulin-dependent type 2 diabetes mellitus Hypertension hypertensive cardiovascular disease Plan: Continue IV Zosyn REMdesivir IV for 5 days Decadron 6 mg IV every 12 Supplemental oxygen on the deep breathing exercise incentive spirometry Prone positioning if possible A speech to evaluate for swallow evaluation Repeat chest x-ray reviewed Further recommendations pending plan of care as per clinical response of the patient Time with Patient: Greater than 30
--- NOTE | 2020-10-25 16:54 | CDI ---
Documentation Clarification Form Date: 10/25/2020 04:40:29 PM From: Niya Ya RN CCDS Admit Date: 10/22/2020 12:02:00 AM Patient Name: Antonina Pierce Visit Number: [id number] Discharge Date: ATTENTION: The Clinical Documentation Specialists (CDI) and [facility] Coding Staff appreciate your assistance in clarifying documentation. Please respond to the clarification below the line at the bottom and electronically sign. The CDI & [facility] Coding staff will review the response and follow-up if needed. Please note: Queries are made part of the Legal Health Record. If you have any questions, please contact the author of this message via ITS. Dr. Robert Amador Altered Mental Status secondary to Sepsis was documented in the H&P 10/22 and in subsequent progress notes from Internal Medicine through 10/25 History/Risk Factors: 70-year-old female presents to the ED with altered mental status and unresponsiveness. Medial history: DM; Asthma; CHF; HTN and memory impairment Clinical Indicators: Admitting Diagnosis: Sepsis, Acute Hypoxic Respiratory failure, COVID 19 Labs: 10/21: Wbc 6.1 Lymph 0.4; BUN 22; Glucose 165; Phosphorus 5.6; AST 37; ALT 48; LDH 494; UA large leukocyte esterase; Wbc 108; bacteria many. 10/21 Urine Culture: Escherichia coli X Ray 10/21: Increased interstitial pulmonary density CT Brain 10/21: Cerebral atrophy and chronic small vessel ischemia Treatment: 10/22 Zosyn Ivpb Q8Hr; 10/22 Vancomycin Ivpb Q12Hr In your professional opinion, please clarify the etiology of the Altered Mental Status, if known. Acute Metabolic Encephalopathy Other condition (please specify) Unable to determine Altered mental status seconcary to sepsis with Acute Metabolic encephalopathy documented in the DCS 10/26 VIRY King (Last Revision: February 2018) HAYLEE
[2020-10-25 16:59] LABS: Glucose,Whole Blood 227 mg/dL (75-99)
[2020-10-25] MEDS: PREGABALIN 75 MG CAP PO SCH (17:32)
[2020-10-25] MEDS: MONTELUKAST 10 MG TAB PO SCH (17:32)
[2020-10-25 20:39] LABS: Glucose,Whole Blood 265 mg/dL (75-99)
[2020-10-25] MEDS: MELATONIN 1 MG TAB PO SCH (21:03)
[2020-10-25] MEDS: INSULIN DETEMIR (LEVEMIR) 100 UNIT/ML SYR SQ SCH (21:03)
[2020-10-26] MEDS: MENTHOL-ZINC OXIDE OINT 113 GM TUBE TOPICAL SCH (05:26)
[2020-10-26 06:58] LABS: Glucose,Whole Blood 150 mg/dL (75-99)
[2020-10-26] MEDS: VANCOMYCIN 2,000 MG in SODIUM CHLORIDE 0.9% 500 ML 500 ML IVPB SCH (07:57)
[2020-10-26] MEDS: PIPERACILLIN-TAZOBACTAM 3.375 GM in SODIUM CHLORIDE 0.9% 100 ML IVPB SCH (07:57)
[2020-10-26] MEDS: ENOXAPARIN 40 MG/0.4 ML SYRINGE SQ SCH (07:57)
[2020-10-26] MEDS: PANTOPRAZOLE 40 MG TABLET PO SCH (07:58)
[2020-10-26] MEDS: SENNOSIDES 8.6 MG TAB PO SCH (07:58)
[2020-10-26] MEDS: NALDEMEDINE TOSYLATE 0.2 MG PO SCH (07:58)
[2020-10-26] MEDS: guaiFENesin 600 MG TABLET.ER PO SCH (07:58)
[2020-10-26] MEDS: CEVIMELINE 30 MG CAP PO SCH ×2 (07:59→11:32)
[2020-10-26] MEDS: FLUTICASONE 110 MCG INHALER INHALATION SCH (07:59)
[2020-10-26] MEDS: ALPRAZolam 0.25 MG TAB PO SCH ×2 (07:59→11:32)
[2020-10-26] MEDS: LEVOTHYROXINE 75 MCG TAB PO SCH (07:59)
[2020-10-26] MEDS: POTASSIUM CHLORIDE ER 10 MEQ TAB.ER.PRT PO SCH (07:59)
[2020-10-26] MEDS: ALBUTEROL HFA INHALER INHALATION SCH ×2 (07:59→11:47)
[2020-10-26] MEDS: DEXAMETHASONE SOD PHOSPHATE 10 MG/ML 1 ML VIAL IV SCH (07:59)
[2020-10-26] MEDS: ATORVASTATIN 10 MG TAB PO SCH (07:59)
[2020-10-26] MEDS: amLODIPine 5 MG TAB PO SCH (07:59)
[2020-10-26] MEDS: INSULIN ASPART (NovoLOG) 100 UNIT/ML VIAL SQ SCH ×2 (08:00→12:49)
[2020-10-26] MEDS: FLUTICASONE 50MCG/SPRAY NASAL 16GM EA NOSTRIL SCH (08:01)
[2020-10-26 10:02] VITALS: BP 115/71; PULSE 77; RESP 18; TEMP 98.3
[2020-10-26] MEDS: REMDESIVIR 100 MG in SODIUM CHLORIDE 0.9% 250 ML IVPB SCH (11:26)
[2020-10-26] MEDS: CHOLECALCIFEROL 1,000 UNIT TAB PO SCH (11:28)
[2020-10-26] MEDS: ASCORBIC ACID 500 MG TAB PO SCH (11:28)
[2020-10-26] MEDS: ZINC SULFATE 220 MG CAP PO SCH (11:32)
[2020-10-26 11:49] LABS: Glucose,Whole Blood 178 mg/dL (75-99)
--- NOTE | 2020-10-26 12:37 | P.DS ---
Providers Date of admission: 10/22/20 00:02 Expected date of discharge: 10/26/20 Attending physician: Robert Amador Consults: 10/22/20 00:05 Consult Physician Routine Consulting Provider: Stef Herrera Consult Reason/Comments: Trey Do you want consulting provider notified?: Yes [facility] care [facility] Course: This is a 70-year-old female patient of Dr. Amador, with a past medical history of diabetes mellitus type 2, fibromyalgia, chronic pain, asthma, hypothyroidism, Sojourn's syndrome, dementia and migraines. 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 During routine testing at the [facility], she was noted to be COVID positive. She was doing well with mild symptoms until she was noted by the staff to become less responsive and noted to have more generalized weakness. She was transferred to the hospital. Chest x-ray showed interstitial pulmonary density but no obvious heart failure and coarsening of interstitial markings. Head CT shows cerebral atrophy and chronic small vessel ischemia with no acute intracranial abnormality. Laboratory values showed WBC 6.1, hemoglobin 16, platelet 207, BUN 22, creatinine 0.59, sodium 140, potassium 4.1 C-reactive protein 7.8, LDH 494 CK 37. UA was obtained and is positive for urinary tract infection. There is concern for possible aspiration pneumonia, patient was started on IV Zosyn, pulmonary on consult and started Remdesivir and dexamethasone. 10/23: Patient is doing slightly better, her oxygen level has improved significantly last 24 hours. Patient still seen pulmonary continue antiviral and Covid 19 resume treatment, pulse oximetry continue to improve patient still debilitated and bedridden with more help to be in the chair in the next day or 2 we'll continue PT and might need evaluation came by speech. Repeat chest x-ray and lab tomorrow. 10/24: Patient clinically doing much better she is requiring less O2 to keep her sats above 90 percentile so far, fever and chills has improved significantly, the constitutional generalized symptom patient has still exist but mostly from UTI bronchitis more than the Covid pneumonitis itself. Agree with pulmonary management patient will continue current treatment and prepare for returning to [facility] sometimes in the next 48 hours. 10/25: Patient continues to improve, does not require oxygen, she is 94% on room air, afebrile temperatures 98.7, heart rate is 87, respiratory rate 18, blood pressure 156/81. Blood cultures show no growth to date, She continues on Remdesivir day 4/5. Will most likely be discharged back to [facility] tomorrow. 10/26: Patient evaluated today resting in bed comfortably. Patient finished her course of Remdesivir. Overall her breathing has improved, she continues to be 94% on room air. Urine culture positive for E. coli, will be discharged back to [facility] on Levaquin for both her UTI and pneumonia. Discharge diagnoses 1. Acute hypoxic respiratory failure 2. Altered mental status secondary to sepsis with acute metabolic encephalopathy 3. COVID 19 pneumonia. 4. Sepsis secondary to urinary tract infection. 5. Aspiration pneumonia. 6. Type 2 diabetes mellitus. 7. Hypertension and hypertensive cardiovascular disease. 8. Fibromyalgia with chronic pain. 9. Sjogren syndrome. 10. Hypothyroidism. 11. Hyperlipidemia. The above impression and plan of care have been discussed and directed by signing physician. Leonarda King nurse practitioner acting as scribe for signing physician. Patient Condition at Discharge: Fair Plan - Discharge Summary Discharge Rx Participant: No New Discharge Prescriptions: New Albuterol Inhaler [Ventolin Hfa Inhaler] 2 puff INHALATION RT-QID PRN puff PRN Reason: Shortness Of Breath Or Wheezing Levofloxacin [Levaquin] 250 mg PO DAILY 1 Days #7 tablet Continue Montelukast [Singulair] 10 mg PO DAILY@1700 Cevimeline [Evoxac] 30 mg PO TID@0800,1200,1700 Levothyroxine Sodium [Synthroid] 75 mcg PO DAILY@0800 amLODIPine [Norvasc] 5 mg PO BID@0800,1700 Pravastatin Sodium [Pravachol] 80 mg PO HS@2100 Naldemedine Tosylate [Symproic] 0.2 mg PO DAILY@0800 Fluticasone Nasal [place] [Flonase Nasal Rosharon] 1 spray EA NOSTRIL BID@0800,1700 Ibuprofen [Motrin] 400 mg PO Q4HR PRN tab PRN Reason: Pain Butalb/Acetaminophen/Caffeine [Fioricet 50-325-40] 2 tab PO Q4H PRN #12 tablet PRN Reason: Migraine Headache Na Phos,M-B/Na Phos,Di-Ba [Fleet Adult] 1 dose RECTAL Q24H PRN PRN Reason: Constipation guaiFENesin [Mucinex] 600 mg PO BID@0800,2100 guaiFENesin [Diabetic Tussin Ex] 10 ml PO Q4H PRN PRN Reason: Cough bisacodyL [Dulcolax] 10 mg RECTAL Q24H PRN PRN Reason: Constipation DULoxetine HCL [Cymbalta] 30 mg PO DAILY@0800 Menthol-Zinc Oxide Oint [Calmoseptine Oint] 1 applic TOPICAL Q12H Menthol [Biofreeze] 1 applic TOPICAL Q12H PRN PRN Reason: muscle discomfort Magnesium Hydroxide [Milk of Magnesia Concentrate] 7,200 mg PO DAILY PRN PRN Reason: Constipation Ipratropium-Albuterol Nebulize [Duoneb 0.5 mg-3 mg/3 ml Soln] 3 ml INHALATION RT-QID@08,12,17,21 Ascorbic Acid [Vitamin C] 1,000 mg PO DAILY@1100 Cholecalciferol [Vitamin D3 (25 Mcg = 1000 Iu)] 2,000 unit PO DAILY@1100 Furosemide [Lasix] 40 mg PO DAILY@0800 Insulin Glargine [Lantus] 17 unit SQ HS@2130 INSULIN LISPRO (humaLOG) [humaLOG] See Protocol SQ ACHS@07,11,1830,2130 INSULIN LISPRO (humaLOG) [humaLOG] 9 unit SQ BID@0700,1700 INSULIN LISPRO (humaLOG) [humaLOG] 7 unit SQ DAILY@1100 Mag Hydrox/Al Hydrox/Simeth [Maalox] 15 ml PO Q6H PRN PRN Reason: Gi Upset Melatonin 3 mg PO HS@2100 Polyvinyl Alcohol/Povidone [Freshk[place] Eye Drop] 1 drop BOTH EYES BID@0800,1700 Potassium Chloride [Klor-Con 10] 10 meq PO DAILY@0800 Sennosides [Senna] 17.2 mg PO BID@0800,1700 Zinc Sulfate [Orazinc] 220 mg PO DAILY@1100 Budesonide [Pulmicort] 0.5 mg INHALATION RT-BID@0800,1700 Enoxaparin [Lovenox] 40 mg INJ DAILY@1100 #5 HYDROcodone/APAP 10-325MG [Dale 10-325] 1 each PO BID PRN #6 PRN Reason: Pain ALPRAZolam [Xanax] 0.25 mg PO TID@0800,1200,1700 #9 tab Changed Dexamethasone [Decadron] 4 mg PO DAILY #5 Pregabalin [Lyrica] 150 mg PO DAILY@1700 #3 Discontinued Azithromycin [Zithromax] 250 mg PO DAILY@1700 Discharge Medication List Cevimeline [Evoxac] 30 mg PO TID@0800,1200,1700 03/06/18 [History] Levothyroxine Sodium [Synthroid] 75 mcg PO DAILY@0800 03/06/18 [History] Montelukast [Singulair] 10 mg PO DAILY@17003/06/18 [History] Pravastatin Sodium [Pravachol] 80 mg PO HS@2100 03/06/18 [History] amLODIPine [Norvasc] 5 mg PO BID@0800,1700 03/06/18 [History] Fluticasone Nasal Rosh[place] [Flonase Nasal R[place]] 1 spray EA NOSTRIL BID@0800,1700 09/25/18 [History] Naldemedine Tosylate [Symproic] 0.2 mg PO DAILY@0800 09/25/18 [History] Butalb/Acetaminophen/Caffeine [Fioricet 50-325-40] 2 tab PO Q4H PRN #12 tablet 09/30/18 [Rx] Ibuprofen [Motrin] 400 mg PO Q4HR PRN tab 09/30/18 [Rx] Na Phos,M-B/Na Phos,Di-Ba [Fleet Adult] 1 dose RECTAL Q24H PRN 10/15/18 [History] Ascorbic Acid [Vitamin C] 1,000 mg PO DAILY@1100 10/21/20 [History] Budesonide [Pulmicort] 0.5 mg INHALATION RT-BID@0800,1700 10/21/20 [History] Cholecalciferol [Vitamin D3 (25 Mcg = 1000 Iu)] 2,000 unit PO DAILY@1100 10/21/20 [History] DULoxetine HCL [Cymbalta] 30 mg PO DAILY@0800 10/21/20 [History] Furosemide [Lasix] 40 mg PO DAILY@0800 10/21/20 [History] INSULIN LISPRO (humaLOG) [humaLOG] 7 unit SQ DAILY@1100 12/17/20 [History] INSULIN LISPRO (humaLOG) [humaLOG] 9 unit SQ BID@0700,1700 10/21/20 [History] INSULIN LISPRO (humaLOG) [humaLOG] See Protocol SQ ACHS@07,11,1830,212910/21/20 [History] Insulin Glargine [Lantus] 17 unit SQ HS@212910/21/20 [History] Ipratropium-Albuterol Nebulize [Duoneb 0.5 mg-3 mg/3 ml Soln] 3 ml INHALATION RT-QID@08,12,17,10/21/20 [History] Mag Hydrox/Al Hydrox/Simeth [Maalox] 15 ml PO Q6H PRN 10/21/20 [History] Magnesium Hydroxide [Milk of Magnesia Concentrate] 7,200 mg PO DAILY PRN 10/21/20 [History] Melatonin 3 mg PO HS@209910/21/20 [History] Menthol [Biofreeze] 1 applic TOPICAL Q12H PRN 10/21/20 [History] Menthol-Zinc Oxide Oint [Calmoseptine Oint] 1 applic TOPICAL Q12H 10/21/20 [Hist ory] Polyvinyl Alcohol/Povidone [Freshk[place] Eye Drop] 1 drop BOTH EYES BID@0800,1700 10/21/20 [History] Potassium Chloride [Klor-Con 10] 10 meq PO DAILY@0800 10/21/20 [History] Sennosides [Senna] 17.2 mg PO BID@0800,1700 10/21/20 [History] Zinc Sulfate [Orazinc] 220 mg PO DAILY@1100 10/21/20 [History] bisacodyL [Dulcolax] 10 mg RECTAL Q24H PRN 10/21/20 [History] guaiFENesin [Diabetic Tussin Ex] 10 ml PO Q4H PRN 10/21/20 [History] guaiFENesin [Mucinex] 600 mg PO BID@0800,2100 10/21/20 [History] ALPRAZolam [Xanax] 0.25 mg PO TID@0800,1200,1700 #9 tab 10/26/20 [Rx] Albuterol Inhaler [Ventolin Hfa Inhaler] 2 puff INHALATION RT-QID PRN puff 10/26/20 [Rx] Dexamethasone [Decadron] 4 mg PO DAILY #5 10/26/20 [Rx] Enoxaparin [Lovenox] 40 mg INJ DAILY@1100 #5 10/26/20 [Rx] HYDROcodone/APAP 10-325MG [Dale 10-325] 1 each PO BID PRN #6 10/26/20 [Rx] Levofloxacin [Levaquin] 250 mg PO DAILY 1 Days #7 tablet 10/26/20 [Rx] Pregabalin [Lyrica] 150 mg PO DAILY@1700 #3 10/26/20 [Rx] Follow up Appointment(s)/Referral(s): Robert Amdaor MD [Primary Care Provider] - 1-2 days Discharge Disposition: TRANSFER TO SNF/ECF
--- NOTE | 2020-10-26 12:59 | P.PN ---
Subjective Progress Note Date: 10/26/20 Principal diagnosis: Altered mental status due to sepsis Acute hypoxic respiratory failure Covid 19 pneumonia Sepsis due to Urinary tract infection Aspiration pneumonia Insulin-dependent type 2 diabetes mellitus Hypertension hypertensive cardiovascular disease 10/26/2020, patient seen eval examined and denies any chest pain shortness of breath has been stable, patient is on room air, agree with discharge planning 10/25/2020, patient seen eval examined during the rounds labs reviewed medications reviewed care plan discussed, oxygen saturation remained stable on room air 94% now, generalized weakness however is present, patient is looking for placement, 10/24/2020, patient seen eval examined during the rounds labs reviewed medications reviewed care plan discussed, respiratory status remained stable, patient is 95% room air with stable hemodynamics, 10/23/2020, patient seen eval examined during the rounds labs reviewed medications reviewed mom overall relatively more awake now patient remains on broad-spectrum antibiotics, along with IV REMdesivir and Decadron, with supplemental oxygen, remains afebrile with the saturation of 93% on 2 L, hemodynamic status stable, chest x-ray performed today showing left lower lobe infiltrate, prominent interstitium/interstitial pneumonia infiltrate cannot be excluded likely related to Covid 19 pneumonia, blood culture at the time admission was positive for staph this patient however repeat blood cultures are negative, however urine culture is positive for gram-negative bacilli Patient is a 70-year-old female with the ongoing progressive confusion patient is a resident of the [facility] facility she was noted to be more weak and poorly responsive came into the hospital patient is on soft mechanical diet currently, would recommend a speech and swallow evaluation, patient is noted to be covid positive as well, labs are significant for hemoconcentration, and also slightly dehydration with elevated BUNs and creatinines normal, slight hypercapnia glycemia is noted as well, urinalysis is suggestive of ongoing urinary tract infection with large leukocyte esterase with bacteria and mucus urine culture is pending, currently patient is on IV Zosyn for urinary tract infection and possible aspiration pneumonia, brain CT noted to have chronic small vessel disease, chest x-ray however noted to have coarse bilateral interstitial marking consistent with Covid 19 pneumonia, along with cardiomegaly Objective - Vital Signs Vital signs: Vital Signs Temp 98.3 F 10/26/20 10:00 Pulse 77 10/26/20 10:00 Resp 18 10/26/20 10:00 BP 115/71 12/22/20 10:00 Pulse Ox 95 10/26/20 10:00 Intake & Output 10/25/20 10/26/20 10/26/20 18:59 06:59 18:59 Intake Total 1390 Output Total 1900 450 Balance -510 -450 Intake: Intake, IV Titration 950 Amount Piperacillin-Tazobactam 3 200 .375 gm In Sodium Chloride 0.9% 100 ml @ 25 mls/hr IVPB Q8HR [facility] Rx# :[id number] Remdesivir 100 mg In 250 Sodium Chloride 0.9% 250 ml @ 250 mls/hr IVPB DAILY@1200 [facility] Rx#: [id number] Vancomycin 2,000 mg In 500 Sodium Chloride 0.9% 500 ml 500 ml @ 167 mls/hr IVPB Q12HR [facility] Rx#: [id number] Oral 440 Output: Urine 1900 450 Other: Voiding Method Indwelling Catheter Indwelling Catheter Indwelling Catheter - Exam - Constitutional General appearance: average body habitus, disheveled - EENT Eyes: PERRLA Ears: bilateral: normal - Neck Neck: normal ROM Carotids: bilateral: upstroke normal Thyroid: bilateral: normal size - Respiratory Respiratory: bilateral: diminished - Cardiovascular Rhythm: regular Heart sounds: normal: S1, S2 - Gastrointestinal General gastrointestinal: normal bowel sounds, soft - Musculoskeletal Musculoskeletal: generalized weakness - Psychiatric More awake and alert compared to yesterday exam - Labs CBC & Chem 7: 10/23/20 06:33 10/25/20 06:27 Labs: Abnormal Lab Results - Last 24 Hours (Table) 10/25/20 10/25/20 10/26/20 Range/Units 16:57 20:36 06:55 POC Glucose (mg/dL) 227 H 265 H 150 H (75-99) mg/dL 10/26/20 Range/Units 11:47 POC Glucose (mg/dL) 178 H (75-99) mg/dL Microbiology - Last 24 Hours (Table) 10/23/20 06:33 Blood Culture - Preliminary Blood No Growth after 72 hours 10/22/20 11:31 Blood Culture - Preliminary Blood No Growth after 72 hours Assessment and Plan Assessment: Altered mental status due to sepsis Acute hypoxic respiratory failure Left lower lobe aspiration pneumonia Covid 19 pneumonia Sepsis due to Urinary tract infection, Covid 19 pneumonia, aspiration pneumonia UTI related to gram-negative bacilli Staph species she blood likely contaminant Insulin-dependent type 2 diabetes mellitus Hypertension hypertensive cardiovascular disease Plan: Continue IV Zosyn REMdesivir IV for 5 days Decadron 6 mg IV every 12 Supplemental oxygen on the deep breathing exercise incentive spirometry Prone positioning if possible A speech to evaluate for swallow evaluation Repeat chest x-ray reviewed Further recommendations pending plan of care as per clinical response of the patient Time with Patient: Greater than 30
[2020-10-27] MEDS ORDERED: VANCOMYCIN TROUGH DUE 1 EACH MISC MISCELLANE ONE (08:00)
== END 2020-10-26 13:05 | DRG 871 ==
LOC: EC 22:45 → 4SSUR 10-22 00:02
PROVIDERS: ADMIT Internal Medicine Geriatric Medicine; ATTEND Internal Medicine Geriatric Medicine
PROC: XW033E5 Introduction of Remdesivir Anti-infective into Peripheral Vein, Percutaneous Approach, New Technology Group 5 (ICD-10-PCS; principal; 2020-10-22)
DX: A41.89 Other specified sepsis (principal); J12.89 Other viral pneumonia; J96.01 Acute respiratory failure with hypoxia; U07.1 COVID-19; J69.0 Pneumonitis due to inhalation of food and vomit; G93.41 Metabolic encephalopathy; N39.0 Urinary tract infection, site not specified; F32.9 Major depressive disorder, single episode, unspecified; M79.7 Fibromyalgia; M35.00 Sjogren syndrome, unspecified; I11.9 Hypertensive heart disease without heart failure; F03.90 Unspecified dementia, unspecified severity, without behavioral disturbance, psychotic disturbance, mood disturbance, and anxiety; R29.6 Repeated falls; G43.909 Migraine, unspecified, not intractable, without status migrainosus; K21.9 Gastro-esophageal reflux disease without esophagitis; E78.5 Hyperlipidemia, unspecified; E11.9 Type 2 diabetes mellitus without complications; E03.9 Hypothyroidism, unspecified; R53.81 Other malaise; G89.29 Other chronic pain; B96.20 Unspecified Escherichia coli [E. coli] as the cause of diseases classified elsewhere; J45.909 Unspecified asthma, uncomplicated; F41.9 Anxiety disorder, unspecified; Z79.4 Long term (current) use of insulin; Z79.890 Hormone replacement therapy; Z79.899 Other long term (current) drug therapy; Z88.8 Allergy status to other drugs, medicaments and biological substances; Z88.2 Allergy status to sulfonamides; Z88.5 Allergy status to narcotic agent; Z74.01 Bed confinement status; Z90.49 Acquired absence of other specified parts of digestive tract; Z98.890 Other specified postprocedural states; Z98.51 Tubal ligation status; Z90.89 Acquired absence of other organs; Z80.9 Family history of malignant neoplasm, unspecified; Z90.710 Acquired absence of both cervix and uterus; Z87.891 Personal history of nicotine dependence
CPT/HCPCS: 36415; 70450; 71045; 80053; 80202; 81001; 82140; 82550; 82565; 83605; 83615; 83735; 83880; 84100; 84443; 84484; 85025; 85610; 85730; 86140; 87040; 87077; 87086; 87186; 93005; 94640; 96360; 96365; 96375; 99285

== ENCOUNTER 2021-04-16 22:09 | Emergency (ER) | payer MEDICARE ==
[2021-04-16 22:17] VITALS: TEMP 97.9
--- NOTE | 2021-04-16 22:47 | ED ---
Altered Mental Status HPI - General Chief Complaint: Altered Mental Status Stated Complaint: Syncope Time Seen by Provider: 04/16/21 22:09 Source: patient, EMS Mode of arrival: EMS Limitations: altered mental status, physical limitation - History of Present Illness Initial Comments: This patient is a 70-year-old woman who is sent from her residential for being difficult to arouse tonight. Patient reportedly had been checked in the evening and was difficult to wake up by the staff there. They phoned EMS. When EMS arrived the patient was alert. When I interview the patient, she is denying complaints. MD Complaint: altered mental status -: hour(s) Severity: moderate Associated Symptoms: denies other symptoms - Related Data Home Medications Medication Instructions Recorded Confirmed Cevimeline [Evoxac] 30 mg PO TID@0800,1200,1700 03/06/18 10/21/20 Levothyroxine Sodium [Synthroid] 75 mcg PO DAILY@0800 03/06/18 10/21/20 Montelukast [Singulair] 10 mg PO DAILY@1700 03/06/18 10/21/20 Pravastatin Sodium [Pravachol] 80 mg PO HS@2100 03/06/18 10/21/20 amLODIPine [Norvasc] 5 mg PO BID@0800,1700 03/06/18 10/21/20 Fluticasone Nasal [place] [Flonase 1 spray EA NOSTRIL BID@0800,1700 09/25/18 10/21/20 Nasal [place]] Naldemedine Tosylate [Symproic] 0.2 mg PO DAILY@0800 09/25/18 10/21/20 Na Phos,M-B/Na Phos,Di-Ba [Fleet 1 dose RECTAL Q24H PRN 10/15/18 10/21/20 Adult] Ascorbic Acid [Vitamin C] 1,000 mg PO DAILY@1100 10/21/20 10/21/20 Budesonide [Pulmicort] 0.5 mg INHALATION RT-BID@0800,1700 10/21/20 10/21/20 Cholecalciferol [Vitamin D3 (25 2,000 unit PO DAILY@1100 10/21/20 10/21/20 Mcg = 1000 Iu)] DULoxetine HCL [Cymbalta] 30 mg PO DAILY@0800 10/21/20 10/21/20 Furosemide [Lasix] 40 mg PO DAILY@0800 10/21/20 10/21/20 INSULIN LISPRO (humaLOG) [humaLOG] 7 unit SQ DAILY@1100 10/21/20 10/21/20 INSULIN LISPRO (humaLOG) [humaLOG] 9 unit SQ BID@0700,1700 10/21/20 10/21/20 INSULIN LISPRO (humaLOG) [humaLOG] See Protocol SQ 10/21/20 10/21/20 ACHS@07,11,183,2129 Insulin Glargine [Lantus] 17 unit SQ HS@212910/21/20 10/21/20 Ipratropium-Albuterol Nebulize 3 ml INHALATION RT-QID@08,,,10/21/20 10/21/20 [Duoneb 0.5 mg-3 mg/3 ml Soln] Mag Hydrox/Al Hydrox/Simeth 15 ml PO Q6H PRN 10/21/20 10/21/20 [Maalox] Magnesium Hydroxide [Milk of 7,200 mg PO DAILY PRN 10/21/20 10/21/20 Magnesia Concentrate] Melatonin 3 mg PO HS@2100 10/21/20 10/21/20 Menthol [Biofreeze] 1 applic TOPICAL Q12H PRN 10/21/20 10/21/20 Menthol-Zinc Oxide Oint 1 applic TOPICAL Q12H 10/21/20 10/21/20 [Calmoseptine Oint] Polyvinyl Alcohol/Povidone 1 drop BOTH EYES BID@0800,1700 10/21/20 10/21/20 [Fresh[place]ote Eye Drop] Potassium Chloride [Klor-Con 10] 10 meq PO DAILY@0800 10/21/20 10/21/20 Sennosides [Senna] 17.2 mg PO BID@0800,1700 10/21/20 10/21/20 Zinc Sulfate [Orazinc] 220 mg PO DAILY@1100 10/21/20 10/21/20 bisacodyL [Dulcolax] 10 mg RECTAL Q24H PRN 10/21/20 10/21/20 guaiFENesin [Diabetic Tussin Ex] 10 ml PO Q4H PRN 10/21/20 10/21/20 guaiFENesin [Mucinex] 600 mg PO BID@0800,2100 10/21/20 10/21/20 Previous Rx's Medication Instructions Recorded Butalb/Acetaminophen/Caffeine 2 tab PO Q4H PRN #12 tablet 09/30/18 [Fioricet 50-325-40] Ibuprofen [Motrin] 400 mg PO Q4HR PRN tab 09/30/18 ALPRAZolam [Xanax] 0.25 mg PO TID@0800,1200,1700 #9 10/26/20 tab Albuterol Inhaler [Ventolin Hfa 2 puff INHALATION RT-QID PRN puff 10/26/20 Inhaler] Dexamethasone [Decadron] 4 mg PO DAILY #5 10/26/20 Enoxaparin [Lovenox] 40 mg INJ DAILY@1100 #5 10/26/20 HYDROcodone/APAP 10-325MG [[place] 1 each PO BID PRN #6 10/26/20 10-325] Levofloxacin [Levaquin] 250 mg PO DAILY 1 Days #7 tablet 10/26/20 Pregabalin [Lyrica] 150 mg PO DAILY@1700 #3 10/26/20 Allergies Allergy/AdvReac Type Severity Reaction Status Date / Time prochlorperazine Allergy Itching Verified 04/16/21 22:17 [From Compazine] Sulfa (Sulfonamide Allergy Unknown Verified 04/16/21 22:17 Antibiotics) codeine AdvReac Unknown Verified 04/16/21 22:17 Review of Systems ROS Statement: Those systems with pertinent positive or pertinent negative responses have been documented in the HPI. ROS Other: All systems not noted in ROS Statement are negative. 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 SINUS SX Past Anesthesia/Blood Transfusion Reactions: Motion Sickness, Postoperative Nausea & Vomiting (PONV) Past Psychological History: Anxiety, Depression Smoking Status: Former smoker Past Alcohol Use History: None Reported Past Drug Use History: None Reported - Past Family History Mother History Unknown: Yes Family Medical History: Cancer Father Family Medical History: No Reported History Daughter(s) Family Medical History: No Reported History General Exam Limitations: altered mental status, physical limitation General appearance: alert, in no apparent distress Head exam: Present: atraumatic, normocephalic Eye exam: Present: normal appearance Neck exam: Present: normal inspection, full ROM Respiratory exam: Present: rales (Bilateral lower lung mckeon). Absent: respiratory distress, wheezes, rhonchi, stridor, accessory muscle use Cardiovascular Exam: Present: regular rate, normal rhythm, normal heart sounds. Absent: systolic murmur, diastolic murmur, rubs, gallop GI/Abdominal exam: Present: soft. Absent: distended, tenderness, guarding, rebound, rigid Extremities exam: Present: normal capillary refill, other (Bilateral ankle contractures). Absent: pedal edema, calf tenderness Neurological exam: Present: alert Skin exam: Present: warm, dry, intact, pallor. Absent: rash Course Vital Signs 04/16/21 04/17/21 22:10 01:21 Temperature 97.9 F Pulse Rate 69 64 Respiratory 16 18 Rate Blood Pressure 105/62 116/73 O2 Sat by Pulse 97 95 Oximetry Medical Decision Making - Medical Decision Making Patient is a 70-year-old woman sent from her long-term care facility to be evaluate for altered mental status and being difficult to arouse. When I int erview the patient, she is alert and responds appropriately. The patient's family is here and state that she seems close her usual self though they do note it has been a year since they have seen her given the pandemic. Patient workup does not reveal acute process, and given that she appears at her baseline here will discharge with further care by her primary physician - Lab Data Result diagrams: 04/16/21 22:33 04/16/21 22:33 Lab Results 04/16/21 04/16/21 04/16/21 Range/Units 22:33 22:33 22:33 WBC 9.2 (3.8-10.6) k/uL RBC 4.70 (3.80-5.40) m/uL Hgb 13.6 (11.4-16.0) gm/dL Hct 41.0 (34.0-46.0) % MCV 87.2 (80.0-100.0) fL MCH 28.9 (25.0-35.0) pg MCHC 33.2 (31.0-37.0) g/dL RDW 14.1 (11.5-15.5) % Plt Count 236 (150-450) k/uL MPV 9.1 Neutrophils % 61 % Lymphocytes % 29 % Monocytes % 7 % Eosinophils % 1 % Basophils % 1 % Neutrophils # 5.6 (1.3-7.7) k/uL Lymphocytes # 2.7 (1.0-4.8) k/uL Monocytes # 0.6 (0-1.0) k/uL Eosinophils # 0.1 (0-0.7) k/uL Basophils # 0.1 (0-0.2) k/uL PT 10.3 (9.0-12.0) sec INR 1.0 (<1.2) APTT 22.4 (22.0-30.0) sec D-Dimer 0.29 (<0.60) mg/L FEU Sodium 139 (137-145) mmol/L Potassium 4.0 (3.5-5.1) mmol/L Chloride 101 (98-107) mmol/L Carbon Dioxide 30 (22-30) mmol/L Anion Gap 8 mmol/L BUN 15 (7-17) mg/dL Creatinine 0.51 L (0.52-1.04) mg/dL Est GFR (CKD-EPI)AfAm >90 (>60 ml/min/1.73 sqM) Est GFR (CKD-EPI)NonAf >90 (>60 ml/min/1.73 sqM) Glucose 193 H (74-99) mg/dL Calcium 9.2 (8.4-10.2) mg/dL Magnesium 2.2 (1.6-2.3) mg/dL Total Bilirubin 0.3 (0.2-1.3) mg/dL AST 29 (14-36) U/L ALT 26 (4-34) U/L Alkaline Phosphatase 75 (38-126) U/L Troponin I (0.000-0.034) ng/mL NT-Pro-B Natriuret Pep pg/mL Total Protein 6.2 L (6.3-8.2) g/dL Albumin 3.9 (3.5-5.0) g/dL Urine Color Urine Appearance (Clear) Urine pH (5.0-8.0) Ur Specific [place] (1.001-1.035) Urine Protein (Negative) Urine Glucose (UA) (Negative) Urine Ketones (Negative) Urine Blood (Negative) Urine Nitrite (Negative) Urine Bilirubin (Negative) Urine Urobilinogen (<2.0) mg/dL Ur Leukocyte Esterase (Negative) 04/16/21 04/16/21 04/17/21 Range/Units 22:33 22:33 00:29 WBC (3.8-10.6) k/uL RBC (3.80-5.40) m/uL Hgb (11.4-16.0) gm/dL Hct (34.0-46.0) % MCV (80.0-100.0) fL MCH (25.0-35.0) pg MCHC (31.0-37.0) g/dL RDW (11.5-15.5) % Plt Count (150-450) k/uL MPV Neutrophils % % Lymphocytes % % Monocytes % % Eosinophils % % Basophils % % Neutrophils # (1.3-7.7) k/uL Lymphocytes # (1.0-4.8) k/uL Monocytes # (0-1.0) k/uL Eosinophils # (0-0.7) k/uL Basophils # (0-0.2) k/uL PT (9.0-12.0) sec INR (<1.2) APTT (22.0-30.0) sec D-Dimer (<0.60) mg/L FEU Sodium (137-145) mmol/L Potassium (3.5-5.1) mmol/L Chloride (98-107) mmol/L Carbon Dioxide (22-30) mmol/L Anion Gap mmol/L BUN (7-17) mg/dL Creatinine (0.52-1.04) mg/dL Est GFR (CKD-EPI)AfAm (>60 ml/min/1.73 sqM) Est GFR (CKD-EPI)NonAf (>60 ml/min/1.73 sqM) Glucose (74-99) mg/dL Calcium (8.4-10.2) mg/dL Magnesium (1.6-2.3) mg/dL Total Bilirubin (0.2-1.3) mg/dL AST (14-36) U/L ALT (4-34) U/L Alkaline Phosphatase (38-126) U/L Troponin I <0.012 (0.000-0.034) ng/mL NT-Pro-B Natriuret Pep 45 pg/mL Total Protein (6.3-8.2) g/dL Albumin (3.5-5.0) g/dL Urine Color Yellow Urine Appearance Clear (Clear) Urine pH 5.0 (5.0-8.0) Ur Specific [place] 1.010 (1.001-1.035) Urine Protein Negative (Negative) Urine Glucose (UA) 2+ H (Negative) Urine Ketones Negative (Negative) Urine Blood Negative (Negative) Urine Nitrite Negative (Negative) Urine Bilirubin Negative (Negative) Urine Urobilinogen <2.0 (<2.0) mg/dL Ur Leukocyte Esterase Negative (Negative) - EKG Data EKG shows normal: sinus rhythm, axis (Left axis deviation), intervals ([place] interval 222 ms, prolonged consistent with a first-degree AV block. 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 Possible old anterolateral infarct.) Disposition Clinical Impression: Altered mental status, Onychomycosis Disposition: HOME SELF-CARE Condition: Good Instructions (If sedation given, give patient instructions): Altered Mental Status (ED) Additional Instructions: Please discussed treatment of nail fungus to left fourth fifth digit with primary physician Is patient prescribed a controlled substance at d/c from ED?: No Referrals: Robert Amador MD [Primary Care Provider] - 1-2 days
[2021-04-16 23:17] LABS: Basophils # (A) 0.1 k/uL (0-0.2); Basophils % (A) 1 %; Eosinophils # (A) 0.1 k/uL (0-0.7); Eosinophils % (A) 1 %; HGB 13.6 gm/dL (11.4-16.0); Lymphocytes # (A) 2.7 k/uL (1.0-4.8); Lymphocytes % (A) 29 %; MCH 28.9 pg (25.0-35.0); MCHC 33.2 g/dL (31.0-37.0); MCV 87.2 fL (80.0-100.0); Mean Platelet Volume 9.1; Monocytes # (A) 0.6 k/uL (0-1.0); Monocytes % (A) 7 %; Neutrophils # (A) 5.6 k/uL (1.3-7.7); Neutrophils % (A) 61 %; Platelet Count 236 k/uL (150-450); RDW 14.1 % (11.5-15.5); WBC 9.2 k/uL (3.8-10.6)
[2021-04-16 23:31] LABS: ALT 26 U/L (4-34); AST 29 U/L (14-36); African American GFR (CKD) >90 (>60 ml/min/1.73 sqM); Albumin 3.9 g/dL (3.5-5.0); Alkaline Phosphatase 75 U/L (38-126); Anion Gap 8 mmol/L; Blood Urea Nitrogen 15 mg/dL (7-17); Calcium 9.2 mg/dL (8.4-10.2); Carbon Dioxide 30 mmol/L (22-30); Chloride 101 mmol/L (98-107); Glucose 193 mg/dL (74-99); Magnesium 2.2 mg/dL (1.6-2.3); Non-African American GFR(CKD) >90 (>60 ml/min/1.73 sqM); Sodium 139 mmol/L (137-145); Total Bilirubin 0.3 mg/dL (0.2-1.3); Total Protein 6.2 g/dL (6.3-8.2)
--- NOTE | 2021-04-16 23:33 | XR ---
EXAMINATION TYPE: XR chest 2V DATE OF EXAM: 04/16/2021 COMPARISON: 10/23/2020 HISTORY: Pneumonia chest pain TECHNIQUE: Single view FINDINGS: There is no heart failure nor confluent pneumonic infiltrate. Costophrenic angles are clear . There are chest leads. Bony thorax is intact. IMPRESSION: No active cardiopulmonary disease. No adverse change.
[2021-04-16 23:41] LABS: D-Dimer 0.29 mg/L FEU (<0.60); Prothrombin Time 10.3 sec (9.0-12.0)
[2021-04-16 23:42] LABS: Partial Thromboplastin Time 22.4 sec (22.0-30.0)
[2021-04-17 00:53] LABS: Appearance,Urine Clear (Clear); Bilirubin,Urine Negative (Negative); Blood,Urine Negative (Negative); Color,Urine Yellow; Glucose,Urine (UA) 2+ (Negative); Ketones,Urine Negative (Negative); Leukocyte Esterase,Urine Negative (Negative); Nitrite,Urine Negative (Negative); Protein,Urine Negative (Negative); Urobilinogen,Urine <2.0 mg/dL (<2.0)
[2021-04-17 02:41] VITALS: BP 136/71; PULSE 85; RESP 20
== END 2021-04-17 02:41 | disposition home or self-care (01) ==
LOC: EC 22:09
DX: R41.82 Altered mental status, unspecified (principal); B35.1 Tinea unguium; J18.9 Pneumonia, unspecified organism; J45.909 Unspecified asthma, uncomplicated; E11.9 Type 2 diabetes mellitus without complications; K21.9 Gastro-esophageal reflux disease without esophagitis; E78.5 Hyperlipidemia, unspecified; I10 Essential (primary) hypertension; Z87.891 Personal history of nicotine dependence; Z79.4 Long term (current) use of insulin
CPT/HCPCS: 36415; 71046; 80053; 81003; 83735; 83880; 84484; 85025; 85379; 85610; 85730; 93005; 99285

== ENCOUNTER → 2022-04-25 | Outpatient (CLI) | payer MEDICARE ==
[2022-04-25 22:57] LABS: Appearance,Urine Cloudy (Clear); Bilirubin,Urine Negative (Negative); Blood,Urine Negative (Negative); Color,Urine Yellow (Yellow); Ketones,Urine Negative (Negative); Nitrite,Urine Negative (Negative); PH, Urine 7.5 (5.0-8.0); Urobilinogen,Urine 0.2 (0.2,1.0)
[2022-04-25 23:26] LABS: Bacteria,Urine 1+ /HPF (None Seen)
== END | disposition home or self-care (01) ==
LOC: LABPRL 15:59 → LABMARSNF 15:59 → EDSTATUS 16:01
PROVIDERS: ATTEND Internal Medicine Geriatric Medicine
DX: N18.9 Chronic kidney disease, unspecified (principal)
CPT/HCPCS: 81001; 87086

== ENCOUNTER 2022-06-16 08:09 | Inpatient (IN) | payer MEDICARE ==
[2022-06-16] MEDS ORDERED: IBUPROFEN IV 600 MG in SODIUM CHLORIDE 0.9% 250 ML IV STA (08:29)
--- NOTE | 2022-06-16 08:31 | ED ---
General Adult HPI - General Chief complaint: Altered Mental Status Stated complaint: AMS Time Seen by Provider: 06/16/22 08:09 Source: patient, EMS, RN notes reviewed, old records reviewed Mode of arrival: EMS Limitations: altered mental status, physical limitation - History of Present Illness Initial comments: This is a 71-year-old female presents emergency [facility] from a jail for altered mental status. According to the jail patient is normally alert and oriented 1 but is very alert and today she has not been. Patient also had a low-grade fever at the jail and so they decided to send her into the emergency department for evaluation. Patient is unable to give any further history that we have noted the patient to be coughing. Patient has no family or caregiver with her so no further history is available. - Related Data Home Medications Medication Instructions Recorded Confirmed Cevimeline [Evoxac] 30 mg PO TID@0800,1200,1700 03/06/18 10/21/20 Levothyroxine Sodium [Synthroid] 75 mcg PO DAILY@0800 03/06/18 10/21/20 Montelukast [Singulair] 10 mg PO DAILY@1700 03/06/18 10/21/20 Pravastatin Sodium [Pravachol] 80 mg PO HS@2100 03/06/18 10/21/20 amLODIPine [Norvasc] 5 mg PO BID@0800,1700 03/06/18 10/21/20 Fluticasone Nasal [place] [Flonase 1 spray EA NOSTRIL BID@0800,1700 09/25/18 10/21/20 Nasal [place]] Naldemedine Tosylate [Symproic] 0.2 mg PO DAILY@0800 09/25/18 10/21/20 Na Phos,M-B/Na Phos,Di-Ba [Fleet 1 dose RECTAL Q24H PRN 10/15/18 10/21/20 Adult] Ascorbic Acid [Vitamin C] 1,000 mg PO DAILY@1100 10/21/20 10/21/20 Budesonide [Pulmicort] 0.5 mg INHALATION RT-BID@0800,1700 10/21/20 10/21/20 Cholecalciferol [Vitamin D3 (25 2,000 unit PO DAILY@1100 10/21/20 10/21/20 Mcg = 1000 Iu)] DULoxetine HCL [Cymbalta] 30 mg PO DAILY@0800 10/21/20 10/21/20 Furosemide [Lasix] 40 mg PO DAILY@0800 10/21/20 10/21/20 INSULIN LISPRO (humaLOG) [humaLOG] 7 unit SQ DAILY@1100 10/21/20 10/21/20 INSULIN LISPRO (humaLOG) [humaLOG] 9 unit SQ BID@0700,1700 10/21/20 10/21/20 INSULIN LISPRO (humaLOG) [humaLOG] See Protocol SQ 10/21/20 10/21/20 ACHS@07,11,1830,0 Insulin Glargine [Lantus Vial] 17 unit SQ HS@212910/21/20 10/21/20 Ipratropium-Albuterol Nebulize 3 ml INHALATION RT-QID@08,,,10/21/20 10/21/20 [Duoneb 0.5 mg-3 mg/3 ml Soln] Mag Hydrox/Al Hydrox/Simeth 15 ml PO Q6H PRN 10/21/20 10/21/20 [Maalox] Magnesium Hydroxide [Milk of 7,200 mg PO DAILY PRN 10/21/20 10/21/20 Magnesia Concentrate] Melatonin 3 mg PO HS@2100 10/21/20 10/21/20 Menthol [Biofreeze] 1 applic TOPICAL Q12H PRN 10/21/20 10/21/20 Menthol-Zinc Oxide Oint 1 applic TOPICAL Q12H 10/21/20 10/21/20 [Calmoseptine Ointment] Polyvinyl Alcohol/Povidone 1 drop BOTH EYES BID@0800,1700 10/21/20 10/21/20 [Freshkote Eye Drop] Potassium Chloride [Klor-Con 10 ER] 10 meq PO DAILY@0800 10/21/20 10/21/20 Sennosides [Senna] 17.2 mg PO BID@0800,1700 10/21/20 10/21/20 Zinc Sulfate [Orazinc] 220 mg PO DAILY@1100 10/21/20 10/21/20 bisacodyL [Dulcolax] 10 mg RECTAL Q24H PRN 12/17/20 12/17/20 guaiFENesin [Diabetic Tussin Ex] 10 ml PO Q4H PRN 10/21/20 10/21/20 guaiFENesin [Mucinex] 600 mg PO BID@0800,2100 10/21/20 10/21/20 Previous Rx's Medication Instructions Recorded Butalb/Acetaminophen/Caffeine 2 tab PO Q4H PRN #12 tablet 09/30/18 [Fioricet 50-325-40] Ibuprofen [Motrin] 400 mg PO Q4HR PRN tab 09/30/18 ALPRAZolam [Xanax] 0.25 mg PO TID@0800,1200,1700 #9 10/26/20 tab Albuterol Inhaler [Ventolin Hfa 2 puff INHALATION RT-QID PRN puff 10/26/20 Inhaler] Enoxaparin [Lovenox] 40 mg INJ DAILY@1100 #5 10/26/20 HYDROcodone/APAP 10-325MG [[place] 1 each PO BID PRN #6 10/26/20 10-325] Levofloxacin [Levaquin] 250 mg PO DAILY 1 Days #7 tablet 10/26/20 Pregabalin [Lyrica] 150 mg PO DAILY@1700 #3 10/26/20 dexAMETHasone [Decadron] 4 mg PO DAILY #5 10/26/20 Allergies Allergy/AdvReac Type Severity Reaction Status Date / Time prochlorperazine Allergy Itching Verified 06/16/22 08:20 [From Compazine] Sulfa (Sulfonamide Allergy Unknown Verified 06/16/22 08:20 Antibiotics) codeine AdvReac Unknown Verified 06/16/22 08:20 Review of Systems ROS Statement: Those systems with pertinent positive or pertinent negative responses have been documented in the HPI. ROS Other: All systems not noted in ROS Statement are negative. 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 SINUS SX Past Anesthesia/Blood Transfusion Reactions: Motion Sickness, Postoperative Nausea & Vomiting (PONV) Past Psychological History: Anxiety, Depression Smoking Status: Former smoker Past Alcohol Use History: None Reported Past Drug Use History: None Reported - Past Family History Mother History Unknown: Yes Family Medical History: Cancer Father Family Medical History: No Reported History Daughter(s) Family Medical History: No Reported History General Exam - General Exam Comments Initial Comments: GENERAL: Patient is well-developed and well-nourished. Patient is nontoxic and well- hydrated and is in distress. no acute ENT: Neck is soft and supple. No significant lymphadenopathy is noted. Oropharynx is clear. Moist mucous membranes. EYES: The sclera were anicteric and conjunctiva were pink and moist. Extraocular movements were intact and pupils were equal round and reactive to light. Eyelids were unremarkable. PULMONARY: Unlabored respirations. Good breath sounds bilaterally. No audible rales rhonchi or wheezing was noted. CARDIOVASCULAR: There is a regular rate and rhythm without any murmurs gallops or rubs. ABDOMEN: Soft and nontender with normal bowel sounds. SKIN: Skin is clear with no lesions or rashes and otherwise unremarkable. NEUROLOGIC: Patient is alert and oriented 1. Unable to do a full neuro exam since patient is not comprehending MUSCULOSKELETAL: Normal extremities with adequate strength and full range of motion. LYMPHATICS: No significant lymphadenopathy is noted PSYCHIATRIC: Unable to assess Limitations: altered mental status, physical limitation Course Vital Signs 06/16/22 06/16/22 06/16/22 08:11 10:01 10:06 Temperature 98.4 F Pulse Rate 66 67 Respiratory 16 18 18 Rate Blood Pressure 122/60 107/49 O2 Sat by Pulse 96 98 Oximetry Medical Decision Making - Medical Decision Making EKG shows sinus rhythm at 62 bpm [place] interval is 213 QRS is 121 Q-T intervals 439 QTC is 443. Patient's EKG shows a right bundle branch block no ST segment elevation. Patient is retrocardiac pneumonia. I started the patient on antibiotics emergency department. I went back and reevaluate the patient she was slightly more alert than when she arrived. I spoke with the [facility] hospitalist and they agreed to admit the patient admitted the patient wrote admitting orders - Lab Data Result diagrams: 06/16/22 08:41 08/12/22 08:41 Lab Results 06/16/22 06/16/22 06/16/22 Range/Units 08:41 08:41 08:41 WBC 14.0 H (3.8-10.6) k/uL RBC 4.79 (3.80-5.40) m/uL Hgb 13.9 (11.4-16.0) gm/dL Hct 43.5 (34.0-46.0) % MCV 90.9 (80.0-100.0) fL MCH 28.9 (25.0-35.0) pg MCHC 31.8 (31.0-37.0) g/dL RDW 13.6 (11.5-15.5) % Plt Count 245 (150-450) k/uL MPV 8.9 Neutrophils % 71 % Lymphocytes % 22 % Monocytes % 4 % Eosinophils % 1 % Basophils % 1 % Neutrophils # 9.9 H (1.3-7.7) k/uL Lymphocytes # 3.1 (1.0-4.8) k/uL Monocytes # 0.5 (0-1.0) k/uL Eosinophils # 0.2 (0-0.7) k/uL Basophils # 0.1 (0-0.2) k/uL Sodium 137 (137-145) mmol/L Potassium 4.4 (3.5-5.1) mmol/L Chloride 102 (98-107) mmol/L Carbon Dioxide 26 (22-30) mmol/L Anion Gap 9 mmol/L BUN 12 (7-17) mg/dL Creatinine 0.53 (0.52-1.04) mg/dL Est GFR (CKD-EPI)AfAm >90 (>60 ml/min/1.73 sqM) Est GFR (CKD-EPI)NonAf >90 (>60 ml/min/1.73 sqM) Glucose 154 H (74-99) mg/dL Plasma Lactic Acid [place] (0.7-2.0) mmol/L Calcium 8.5 (8.4-10.2) mg/dL Total Bilirubin 0.8 (0.2-1.3) mg/dL AST 27 (14-36) U/L ALT 24 (4-34) U/L Alkaline Phosphatase 95 (38-126) U/L Total Protein 6.2 L (6.3-8.2) g/dL Albumin 3.6 (3.5-5.0) g/dL Urine Color Light Yellow Urine Appearance Clear (Clear) Urine pH 7.0 (5.0-8.0) Ur Specific [place] 1.004 (1.001-1.035) Urine Protein Negative (Negative) Urine Glucose (UA) Negative (Negative) Urine Ketones Negative (Negative) Urine Blood Trace H (Negative) Urine Nitrite Negative (Negative) Urine Bilirubin Negative (Negative) Urine Urobilinogen <2.0 (<2.0) mg/dL Ur Leukocyte Esterase Negative (Negative) Urine RBC 1 (0-5) /hpf Urine WBC 1 (0-5) /hpf Ur Squamous Epith Cells 8 H (0-4) /hpf Coronavirus (PCR) (Not Detectd) 06/16/22 06/16/22 Range/Units 08:41 08:41 WBC (3.8-10.6) k/uL RBC (3.80-5.40) m/uL Hgb (11.4-16.0) gm/dL Hct (34.0-46.0) % MCV (80.0-100.0) fL MCH (25.0-35.0) pg MCHC (31.0-37.0) g/dL RDW (11.5-15.5) % Plt Count (150-450) k/uL MPV Neutrophils % % Lymphocytes % % Monocytes % % Eosinophils % % Basophils % % Neutrophils # (1.3-7.7) k/uL Lymphocytes # (1.0-4.8) k/uL Monocytes # (0-1.0) k/uL Eosinophils # (0-0.7) k/uL Basophils # (0-0.2) k/uL Sodium (137-145) mmol/L Potassium (3.5-5.1) mmol/L Chloride (98-107) mmol/L Carbon Dioxide (22-30) mmol/L Anion Gap mmol/L BUN (7-17) mg/dL Creatinine (0.52-1.04) mg/dL Est GFR (CKD-EPI)AfAm (>60 ml/min/1.73 sqM) Est GFR (CKD-EPI)NonAf (>60 ml/min/1.73 sqM) Glucose (74-99) mg/dL Plasma Lactic Acid [place] 1.1 (0.7-2.0) mmol/L Calcium (8.4-10.2) mg/dL Total Bilirubin (0.2-1.3) mg/dL AST (14-36) U/L ALT (4-34) U/L Alkaline Phosphatase (38-126) U/L Total Protein (6.3-8.2) g/dL Albumin (3.5-5.0) g/dL Urine Color Urine Appearance (Clear) Urine pH (5.0-8.0) Ur Specific [place] (1.001-1.035) Urine Protein (Negative) Urine Glucose (UA) (Negative) Urine Ketones (Negative) Urine Blood (Negative) Urine Nitrite (Negative) Urine Bilirubin (Negative) Urine Urobilinogen (<2.0) mg/dL Ur Leukocyte Esterase (Negative) Urine RBC (0-5) /hpf Urine WBC (0-5) /hpf Ur Squamous Epith Cells (0-4) /hpf Coronavirus (PCR) Not Detected (Not Detectd) Disposition Clinical Impression: Altered mental status, Pneumonia Disposition: ADMITTED IP TO THIS HOSP Referrals: Robert Amador MD [Primary Care Provider] - 1-2 days Time of Disposition: 10:51
[2022-06-16 09:11] LABS: Appearance,Urine Clear (Clear); Bilirubin,Urine Negative (Negative); Blood,Urine Trace (Negative); Color,Urine Light Yellow; Glucose,Urine (UA) Negative (Negative); Ketones,Urine Negative (Negative); Leukocyte Esterase,Urine Negative (Negative); Nitrite,Urine Negative (Negative); Protein,Urine Negative (Negative); RBC,Urine 1 /hpf (0-5); Specific Gravity,Urine 1.004 (1.001-1.035); Squamous Epithelial Cell,Urine 8 /hpf (0-4); Urobilinogen,Urine <2.0 mg/dL (<2.0); WBC,Urine 1 /hpf (0-5)
[2022-06-16] MEDS: SODIUM CHLORIDE 0.9% 500 ML 500 ML IV SCH ×2 (09:32→10:09)
[2022-06-16 09:39] LABS: Basophils # (A) 0.1 k/uL (0-0.2); Basophils % (A) 1 %; Eosinophils # (A) 0.2 k/uL (0-0.7); Eosinophils % (A) 1 %; HCT 43.5 % (34.0-46.0); HGB 13.9 gm/dL (11.4-16.0); Lymphocytes # (A) 3.1 k/uL (1.0-4.8); Lymphocytes % (A) 22 %; MCH 28.9 pg (25.0-35.0); MCHC 31.8 g/dL (31.0-37.0); MCV 90.9 fL (80.0-100.0); Mean Platelet Volume 8.9; Monocytes # (A) 0.5 k/uL (0-1.0); Monocytes % (A) 4 %; Neutrophils # (A) 9.9 k/uL (1.3-7.7); Neutrophils % (A) 71 %; Platelet Count 245 k/uL (150-450); RBC 4.79 m/uL (3.80-5.40); RDW 13.6 % (11.5-15.5)
[2022-06-16 09:54] LABS: ALT 24 U/L (4-34); AST 27 U/L (14-36); African American GFR (CKD) >90 (>60 ml/min/1.73 sqM); Albumin 3.6 g/dL (3.5-5.0); Alkaline Phosphatase 95 U/L (38-126); Anion Gap 9 mmol/L; Blood Urea Nitrogen 12 mg/dL (7-17); Calcium 8.5 mg/dL (8.4-10.2); Carbon Dioxide 26 mmol/L (22-30); Chloride 102 mmol/L (98-107); Glucose 154 mg/dL (74-99); Non-African American GFR(CKD) >90 (>60 ml/min/1.73 sqM); Potassium 4.4 mmol/L (3.5-5.1); Sodium 137 mmol/L (137-145); Total Bilirubin 0.8 mg/dL (0.2-1.3); Total Protein 6.2 g/dL (6.3-8.2)
--- NOTE | 2022-06-16 10:01 | XR ---
EXAMINATION TYPE: XR chest 2V DATE OF EXAM: 06/16/2022 COMPARISON: 04/16/2021 INDICATION: Fever TECHNIQUE: Frontal and lateral views of the chest are obtained. FINDINGS: The heart size is normal. The pulmonary vasculature is normal. On the lateral projection there is some increased opacity over the posterior lung base not clearly ev ident on the frontal projection. A retrocardiac infiltrate should be suspected. Some partial silhouet ting the left diaphragm may be present.. IMPRESSION: 1. Clinical consideration for a retrocardiac infiltrate is recommended. Consider atelectasis and pneu monia. Follow-up is recommended.
[2022-06-16] MEDS ORDERED: AZITHROMYCIN 500 MG in SODIUM CHLORIDE 0.9% 250 ML IVPB STA (10:52)
[2022-06-16] MEDS ORDERED: PNEUMONIA PROTOCOL UTILIZED 1 EACH MISC PO PRN (10:52)
[2022-06-16] MEDS ORDERED: bisacodyL 10 MG SUPP RECTAL PRN (14:54)
[2022-06-16] MEDS ORDERED: NA PHOS,M-B/NA PHOS,DI-BA 133 ML ENEMA RECTAL PRN (14:54)
[2022-06-16] MEDS ORDERED: BUTALB/APAP/CAFF 50-325-40MG TAB PO PRN (14:54)
[2022-06-16] MEDS: HEPARIN SODIUM,PORCINE/PF 5,000 UNIT/0.5 ML SYRINGE SQ SCH ×3 (17:05→23:44)
[2022-06-16] MEDS: FLUTICASONE 50MCG/SPRAY NASAL 16GM EA NOSTRIL SCH (17:06)
[2022-06-16] MEDS: PREGABALIN 75 MG CAP PO SCH (17:06)
[2022-06-16] MEDS: MONTELUKAST 10 MG TAB PO SCH (17:06)
[2022-06-16] MEDS: INSULIN ASPART (NovoLOG) 100 UNIT/ML VIAL SQ SCH (17:06)
[2022-06-16] MEDS: CEVIMELINE 30 MG CAP PO SCH (17:06)
[2022-06-16] MEDS: ARTIFICIAL TEARS-HYPROMELLOSE DROPS 15 ML BTL BOTH EYES SCH (17:06)
[2022-06-16] MEDS: IPRATROPIUM-ALBUTEROL 3 ML NEB INHALATION PRN (20:24)
[2022-06-16] MEDS: BUDESONIDE 0.5 MG/2 ML NEBU INHALATION SCH (20:24)
[2022-06-16 21:44] LABS: Glucose,Whole Blood 154 mg/dL (70-110)
[2022-06-16] MEDS: PRAVASTATIN SODIUM 80 MG TAB PO SCH (21:58)
[2022-06-16] MEDS: risperiDONE 1 MG TAB PO SCH (21:58)
[2022-06-16] MEDS: INSULIN DETEMIR (LEVEMIR) 100 UNIT/ML SYR SQ SCH (21:58)
--- NOTE | 2022-06-16 23:41 | P.HPIM ---
History of Present Illness H&P Date: 06/16/22 Chief Complaint: Altered mental status Patient is a 71-year-old female with a known history of dementia, hypertension, hyperlipidemia, fibromyalgia, memory impairment, osteoarthritis, hypothyroidism, diabetes type 2 and peripheral neuropathy [place] diarrhea, migraine headache and other multiple medical problems including previous history of smoking who is currently at extended-care facility/half-way was brought to the hospital due to altered mental status. Patient has been more confused and lethargic. Easily irritated x1-2. At baseline patient has been having low-grade fever at half-way and decided to send her to the hospital. Patient is unable to provide any history at this time. Chest x-ray showed clinical consideration for a retrocardiac infiltrate is recommended. Consider atelectasis and pneumonia. Follow-up is recommended. EKG showed sinus rhythm with first-degree AV block. On admission blood pressure is 122/60 pulse 66 respirations 16 pulse ox 96% on room air. Laboratory test showed WBC 14.0 hemoglobin 13.9 and platelets 245 Sodium 137 potassium 4.4 chloride 102 bicarb is 26 BUN 12 and creatinine 0.53 and blood sugar is 134 Liver enzymes are not elevated. UA negative for infection. Coronavirus PCR not detected. Review of Systems Complete review of systems could not be obtained from the patient. Past Medical History Past Medical History: Asthma, Dementia, Diabetes Mellitus, Fibromyalgia, GERD/Reflux, Hyperlipidemia, Hypertension, Memory Impairment, Neurologic Disorder, Osteoarthritis (OA), Pneumonia, Renal Disease, Thyroid Disorder Additional Past Medical History / Comment(s): IDDM type II, neuropathy bilateral feet, CKD, cystic kidneys, bilateral lower leg edema, chronic pain, occipital neuralgia, migraines, hiatal hernia, past gastric ulcers, diverticular disease, constipation, UTI, UTI with sepsis, covid pneumonia, hypothyroid, sjogren's, bowel obstruction as a child/past medical record but hayden could not recall, dysphagia. History of Any Multi-Drug Resistant Organisms: None Reported Past Surgical History: Appendectomy, Bladder Surgery, Bowel Resection, Cholecystectomy, Hysterectomy, Tonsillectomy, Tubal Ligation Additional Past Surgical History / Comment(s): Reveal monirot since removed, R wrist ORIF, pain procedure for occipital neuralgia, colonoscopy, sinus surgery. Past Anesthesia/Blood Transfusion Reactions: Motion Sickness, Postoperative Nausea & Vomiting (PONV) Smoking Status: Former smoker - Past Family History Mother History Unknown: Yes Family Medical History: Cancer Additional Family Medical History / Comment(s): Hayden does not recall type of cancer. Father Family Medical History: Cancer Additional Family Medical History / Comment(s): Melanoma Daughter(s) Family Medical History: No Reported History Medications and Allergies Home Medications Medication Instructions Recorded Confirmed Type Cevimeline [Evoxac] 30 mg PO TID@0800,1200,1700 03/06/18 06/16/22 History Levothyroxine Sodium [Synthroid] 75 mcg PO DAILY@0800 03/06/18 06/16/22 History Montelukast [Singulair] 10 mg PO DAILY@1700 03/06/18 06/16/22 History Pravastatin Sodium [Pravachol] 80 mg PO HS@2100 03/06/18 06/16/22 History amLODIPine [Norvasc] 5 mg PO BID@0800,1700 03/06/18 06/16/22 History Fluticasone Nasal [place] [Flonase 1 spray EA NOSTRIL BID@0800,1700 09/25/18 06/16/22 History Nasal [place]] Naldemedine Tosylate [Symproic] 0.2 mg PO DAILY@0800 09/25/18 06/16/22 History Butalb/Acetaminophen/Caffeine 2 tab PO Q4H PRN #12 tablet 09/30/18 06/16/22 Rx [Fioricet 50-325-40] Ibuprofen [Motrin] 400 mg PO Q4HR PRN tab 09/30/18 06/16/22 Rx Na Phos,M-B/Na Phos,Di-Ba [Fleet 1 dose RECTAL Q24H PRN 10/15/18 06/16/22 History Adult] Budesonide [Pulmicort] 0.5 mg INHALATION RT-BID@0800,1700 10/21/20 06/16/22 History DULoxetine HCL [Cymbalta] 30 mg PO DAILY@0800 10/21/20 06/16/22 History Furosemide [Lasix] 40 mg PO DAILY@0800 10/21/20 06/16/22 History INSULIN LISPRO (humaLOG) [humaLOG] 7 unit SQ DAILY@1100 10/21/20 06/16/22 History INSULIN LISPRO (humaLOG) [humaLOG] 9 unit SQ BID@0700,1700 10/21/20 06/16/22 History Insulin Glargine [Lantus Vial] 17 unit SQ HS@2130 10/21/20 06/16/22 History Ipratropium-Albuterol Nebulize 3 ml INHALATION RT-TID@08,,10/21/20 06/16/22 History [Duoneb 0.5 mg-3 mg/3 ml Soln] Mag Hydrox/Al Hydrox/Simeth 15 ml PO Q6H PRN 10/21/20 06/16/22 History [Maalox] Magnesium Hydroxide [Milk of 7,200 mg PO DAILY PRN 10/21/20 06/16/22 History Magnesia Concentrate] Menthol [Biofreeze] 1 applic TOPICAL Q12H PRN 10/21/20 06/16/22 History Polyvinyl Alcohol/Povidone 1 drop BOTH EYES BID@0800,1700 10/21/20 06/16/22 History [[place] Eye Drop] Potassium Chloride [Klor-Con 10 ER] 10 meq PO DAILY@0800 10/21/20 06/16/22 History Sennosides [Senna] 17.2 mg PO BID@0800,1700 10/21/20 06/16/22 History bisacodyL [Dulcolax] 10 mg RECTAL Q24H PRN 10/21/20 06/16/22 History guaiFENesin [Diabetic Tussin Ex] 10 ml PO Q4H PRN 10/21/20 06/16/22 History Albuterol Inhaler [Ventolin Hfa 2 puff INHALATION RT-QID PRN puff 10/26/20 06/16/22 Rx Inhaler] Pregabalin [Lyrica] 150 mg PO DAILY@1700 #3 10/26/20 06/16/22 Rx ALPRAZolam [Xanax] 0.5 mg PO BID@1200,2100 06/16/22 06/16/22 History Acetaminophen [Tylenol Arthritis] 650 mg PO Q4H PRN 06/16/22 06/16/22 History HYDROcodone/APAP 7.5-325MG [[place] 1 tab PO BID PRN 06/16/22 06/16/22 History 7.5-325] Ipratropium-Albuterol Nebulize 3 ml INHALATION RT-QID PRN 06/16/22 06/16/22 History [Duoneb 0.5 mg-3 mg/3 ml Soln] risperiDONE [RisperDAL] 0.5 mg PO HS@2100 06/16/22 06/16/22 History risperiDONE [RisperDAL] 1 mg PO HS@2100 06/16/22 06/16/22 History Allergies Allergy/AdvReac Type Severity Reaction Status Date / Time prochlorperazine Allergy Itching Verified 06/16/22 11:09 [From Compazine] Sulfa (Sulfonamide Allergy Unknown Verified 06/16/22 11:09 Antibiotics) codeine AdvReac Unknown Verified 06/16/22 11:09 Physical Exam Vitals: Vital Signs Temp Pulse Resp BP Pulse Ox 06/16/22 14:00 74 18 108/78 98 06/16/22 12:39 65 20 107/76 98 06/16/22 10:06 18 06/16/22 10:01 67 18 107/49 98 06/16/22 08:11 98.4 F 66 16 122/60 96 Intake and Output 06/16/22 06/16/22 06/16/22 06:59 14:59 22:59 Other: Weight 106.594 kg PHYSICAL EXAMINATION: Patient is lying in the bed comfortably, no acute distress, awake but not oriented. HEENT: Normocephalic. Neck is supple. Pupils reactive. Nostrils clear. Oral cav ity is moist. Neck reveals no JVD, carotid bruits, or thyromegaly. CHEST EXAMINATION: Trachea is central. Symmetrical expansion. Left basilar crackles. No wheezing. Nonlabored breathing.. CARDIAC: Normal S1, S2 with no gallops. No murmurs ABDOMEN: Soft. Bowel sounds present. Nontender. No organomegaly. No abdominal bruits. Extremities: Bilateral trace edema. No clubbing or cyanosis Neurologically awake, alert, but not oriented. No gross focal deficits noted Skin: No rash or skin lesions. Psychiatric: Could not be assessed at this time. Musculoskeletal: No joint swelling or deformity. Results CBC & Chem 7: 06/16/22 08:41 06/16/22 08:41 Labs: Abnormal Lab Results - Last 24 Hours (Table) 06/16/22 06/16/22 06/16/22 Range/Units 08:41 08:41 08:41 WBC 14.0 H (3.8-10.6) k/uL Neutrophils # 9.9 H (1.3-7.7) k/uL Glucose 154 H (74-99) mg/dL Total Protein 6.2 L (6.3-8.2) g/dL Urine Blood Trace H (Negative) Ur Squamous Epith Cells 8 H (0-4) /hpf Thrombosis Risk Factor Assmnt - DVT/VTE Prophylaxis DVT/VTE Prophylaxis: Pharmacologic Prophylaxis ordered - Choose All That Apply Any of the Below Risk Factors Present?: Yes Each Factor Represents 1 point: Obesity (BMI >25) Other Risk Factors: Yes Each Risk Factor Represents 2 Points: Age 61-74 years Other congenital or acquired thrombophilia - If yes, enter type in comment: No Thrombosis Risk Factor Assessment Total Risk Factor Score: 3 Thrombosis Risk Factor Assessment Level: Moderate Risk Assessment and Plan Assessment: Altered mental status possible metabolic encephalopathy due to infection Pneumonia with retrocardiac infiltrate Dementia Hypertension Diabetes type 2 insulin-dependent Bilateral diabetic peripheral neuropathy patient is bedridden Chronic pain Occipital neuralgia Migraine headaches Hypothyroidism Previous history of smoking DVT prophylax with heparin subcu Plan: Patient will be continued on antibiotics and above ceftriaxone azithromycin. Mentation seems to be improving currently. Continue gentle IV hydration and monitor respiratory status closely. Oxygen supplementation as needed. Elevate head of the bed to prevent aspiration. Patient is on dysphagia level 2 diet. Continue with home medications and follow-up CBC and BMP tomorrow. Prognosis guarded at this time. Time with Patient: Greater than 30
--- NOTE | 2022-06-17 07:38 | XR ---
EXAMINATION TYPE: XR chest 2V DATE OF EXAM: 06/17/2022 COMPARISON: 06/16/2022 HISTORY: 71-year-old female pneumonia TECHNIQUE: AP and lateral views FINDINGS: Heart mildly enlarged. Diffuse interstitial opacity. Patchy retrocardiac opacity remains. Trace pleur al effusions suggested on lateral view. IMPRESSION: Mild cardiomegaly and interstitial changes which have slightly progressed from prior. Possible trace effusions on the lateral view. Persistent patchy retrocardiac opacity. Consider CHF with pulmonary va scular congestion or atypical pneumonias. Additional patchy retrocardiac infiltrate/atelectasis versu s patchy pulmonary edema.
[2022-06-17] MEDS: BUDESONIDE 0.5 MG/2 ML NEBU INHALATION SCH ×2 (08:10→16:06)
[2022-06-17] MEDS: IPRATROPIUM-ALBUTEROL 3 ML NEB INHALATION PRN ×3 (08:10→19:50)
[2022-06-17 09:26] LABS: Glucose,Whole Blood 336 mg/dL (70-110)
[2022-06-17] MEDS: LEVOTHYROXINE 75 MCG TAB PO SCH (09:31)
[2022-06-17] MEDS: INSULIN ASPART (NovoLOG) 100 UNIT/ML VIAL SQ SCH ×3 (09:32→17:34)
[2022-06-17] MEDS: AZITHROMYCIN 500 MG TAB PO SCH (09:32)
[2022-06-17] MEDS: HEPARIN SODIUM,PORCINE/PF 5,000 UNIT/0.5 ML SYRINGE SQ SCH ×2 (09:32→17:34)
[2022-06-17] MEDS: CEVIMELINE 30 MG CAP PO SCH ×3 (09:33→17:33)
[2022-06-17] MEDS: DULoxetine HCL 30 MG CAPSULE.DR PO SCH (09:33)
[2022-06-17] MEDS: FLUTICASONE 50MCG/SPRAY NASAL 16GM EA NOSTRIL SCH ×2 (09:34→17:34)
[2022-06-17] MEDS: ARTIFICIAL TEARS-HYPROMELLOSE DROPS 15 ML BTL BOTH EYES SCH ×2 (09:34→17:34)
[2022-06-17] MEDS ORDERED: VANCOMYCIN IV PER PHARMACY 1 EACH MISC MISCELLANE PRN (11:00)
[2022-06-17] MEDS ORDERED: VANCOMYCIN 1,750 MG in SODIUM CHLORIDE 0.9% 500 ML 500 ML IVPB ONE (11:30)
[2022-06-17 11:32] LABS: Glucose,Whole Blood 201 mg/dL (70-110)
[2022-06-17 12:23] LABS: African American GFR (CKD) 111.3 (60.0-200.0); Blood Urea Nitrogen 8.5 mg/dL (9.0-27.0); Calcium 8.6 mg/dL (8.7-10.3); Carbon Dioxide 24.7 mmol/L (20.0-27.5); Chloride 107 mmol/L (96-109); Glucose 136 mg/dL (70-110); Sodium 142 mmol/L (135-145)
[2022-06-17] MEDS ORDERED: HYALURONIDASE, HUMAN RECOMB 150 UNIT/ML 1 ML VIAL SQ STA (12:45)
[2022-06-17 13:43] LABS: Basophils # (A) 0.05 X 10*3/uL (0.00-0.10); Basophils % (A) 0.7 %; Eosinophils # (A) 0.25 X 10*3/uL (0.04-0.35); Eosinophils % (A) 3.3 %; HGB 12.5 g/dL (12.0-15.0); Immature Grans, Automated 0.3 %; Lymphocytes # (A) 1.79 X 10*3/uL (0.90-5.00); Lymphocytes % (A) 23.8 %; MCH 28.8 pg (27.0-32.0); MCHC 31.3 g/dL (32.0-37.0); MCV 92.2 fL (80.0-97.0); Mean Platelet Volume 12.7 fL (9.5-12.2); Monocytes # (A) 0.51 X 10*3/uL (0.20-1.00); Monocytes % (A) 6.8 %; NRBC Per 100 WBC 0 /100 WBCS (0.0-0.0); Neutrophils # (A) 4.91 X 10*3/uL (1.80-7.70); Neutrophils % (A) 65.1 %; Platelet Count 234 X 10*3/uL (140-440); RBC 4.34 X 10*6/uL (4.10-5.20); RDW 14.3 % (11.5-14.5); WBC 7.53 X 10*3/uL (4.50-10.00)
[2022-06-17] MEDS ORDERED: FUROSEMIDE 10 MG/ML 2 ML VIAL IV ONE (15:15)
[2022-06-17] MEDS: MONTELUKAST 10 MG TAB PO SCH (17:33)
[2022-06-17] MEDS: PREGABALIN 75 MG CAP PO SCH (17:33)
[2022-06-17] MEDS: PRAVASTATIN SODIUM 80 MG TAB PO SCH (20:37)
[2022-06-17] MEDS: risperiDONE 1 MG TAB PO SCH (20:37)
[2022-06-17] MEDS: INSULIN DETEMIR (LEVEMIR) 100 UNIT/ML SYR SQ SCH (20:37)
[2022-06-17 20:48] LABS: Glucose,Whole Blood 145 mg/dL (70-110)
--- NOTE | 2022-06-17 20:51 | P.CONS ---
History of Present Illness - Reason for Consult Consult date: 06/17/22 - History of Present Illness Patient is a 71-year-old female senior care resident with a past medical history significant for hypertension hyperlipidemia diabetes mellitus patient was brought to the hospital yesterday morning for evaluation of mental status changes patient also have a low-grade fever at senior care, patient however on presentation to the hospital was afebrile and no fever have been recorded subsequently patient was not hypoxic patient did have white count of 14,000 with a left shift kidney function was normal liver enzymes are normal procalcitonin is elevated urine has been negative [place] PCR was negative patient did have a chest x-ray retrocardiac infiltrate concerning for pneumonia patient was started on Rocephin and Zithromax subsequently blood cultures came back positive with gram-positive cocci that has prompted this infectious disease consultation, patient is currently complaining of some shortness of breath and she also have a cough mild to moderate intensity and has been of some sputum not clear about the color denies any pleuritic chest pain no nausea no vomiting no choking on the food no abdominal pain or diarrhea Past Medical History Past Medical History: Asthma, Dementia, Diabetes Mellitus, Fibromyalgia, GERD/Reflux, Hyperlipidemia, Hypertension, Memory Impairment, Neurologic Disorder, Osteoarthritis (OA), Pneumonia, Renal Disease, Thyroid Disorder Additional Past Medical History / Comment(s): IDDM type II, neuropathy bilateral feet, CKD, cystic kidneys, bilateral lower leg edema, chronic pain, occipital neuralgia, migraines, hiatal hernia, past gastric ulcers, diverticular disease, constipation, UTI, UTI with sepsis, covid pneumonia, hypothyroid, sjogren's, bowel obstruction as a child/past medical record but hayden could not recall, dysphagia. History of Any Multi-Drug Resistant Organisms: None Reported Past Surgical History: Appendectomy, Bladder Surgery, Bowel Resection, Cholecystectomy, Hysterectomy, Tonsillectomy, Tubal Ligation Additional Past Surgical History / Comment(s): Reveal monirot since removed, R wrist ORIF, pain procedure for occipital neuralgia, colonoscopy, sinus surgery. Past Anesthesia/Blood Transfusion Reactions: Motion Sickness, Postoperative Nausea & Vomiting (PONV) Smoking Status: Former smoker - Past Family History Mother History Unknown: Yes Family Medical History: Cancer Additional Family Medical History / Comment(s): Hayden does not recall type of cancer. Father Family Medical History: Cancer Additional Family Medical History / Comment(s): Melanoma Daughter(s) Family Medical History: No Reported History Medications and Allergies Home Medications Medication Instructions Recorded Confirmed Type Cevimeline [Evoxac] 30 mg PO TID@0800,1200,1700 03/06/18 06/16/22 History Levothyroxine Sodium [Synthroid] 75 mcg PO DAILY@0800 03/06/18 06/16/22 History Montelukast [Singulair] 10 mg PO DAILY@1700 03/06/18 06/16/22 History Pravastatin Sodium [Pravachol] 80 mg PO HS@2100 03/06/18 06/16/22 History amLODIPine [Norvasc] 5 mg PO BID@0800,1700 03/06/18 06/16/22 History Fluticasone Nasal [place] [Flonase 1 spray EA NOSTRIL BID@0800,1700 09/25/18 06/16/22 History Nasal [place]] Naldemedine Tosylate [Symproic] 0.2 mg PO DAILY@0800 09/25/18 06/16/22 History Butalb/Acetaminophen/Caffeine 2 tab PO Q4H PRN #12 tablet 09/30/18 06/16/22 Rx [Fioricet 50-325-40] Ibuprofen [Motrin] 400 mg PO Q4HR PRN tab 09/30/18 06/16/22 Rx Na Phos,M-B/Na Phos,Di-Ba [Fleet 1 dose RECTAL Q24H PRN 10/15/18 06/16/22 History Adult] Budesonide [Pulmicort] 0.5 mg INHALATION RT-BID@0800,1700 10/21/20 06/16/22 History DULoxetine HCL [Cymbalta] 30 mg PO DAILY@0800 10/21/20 06/16/22 History Furosemide [Lasix] 40 mg PO DAILY@0800 10/21/20 06/16/22 History INSULIN LISPRO (humaLOG) [humaLOG] 7 unit SQ DAILY@1100 10/21/20 06/16/22 History INSULIN LISPRO (humaLOG) [humaLOG] 9 unit SQ BID@0700,1700 10/21/20 06/16/22 History Insulin Glargine [Lantus Vial] 17 unit SQ HS@2130 10/21/20 06/16/22 History Ipratropium-Albuterol Nebulize 3 ml INHALATION RT-TID@,10/21/20 06/16/22 History [Duoneb 0.5 mg-3 mg/3 ml Soln] Mag Hydrox/Al Hydrox/Simeth 15 ml PO Q6H PRN 10/21/20 06/16/22 History [Maalox] Magnesium Hydroxide [Milk of 7,200 mg PO DAILY PRN 10/21/20 06/16/22 History Magnesia Concentrate] Menthol [Biofreeze] 1 applic TOPICAL Q12H PRN 10/21/20 06/16/22 History Polyvinyl Alcohol/Povidone 1 drop BOTH EYES BID@0800,1700 10/21/20 06/16/22 History [[place] Eye Drop] Potassium Chloride [Klor-Con 10 ER] 10 meq PO DAILY@0800 10/21/20 06/16/22 History Sennosides [Senna] 17.2 mg PO BID@0800,1700 10/21/20 06/16/22 History bisacodyL [Dulcolax] 10 mg RECTAL Q24H PRN 10/21/20 06/16/22 History guaiFENesin [Diabetic Tussin Ex] 10 ml PO Q4H PRN 10/21/20 06/16/22 History Albuterol Inhaler [Ventolin Hfa 2 puff INHALATION RT-QID PRN puff 10/26/20 06/16/22 Rx Inhaler] Pregabalin [Lyrica] 150 mg PO DAILY@1700 #3 10/26/20 06/16/22 Rx ALPRAZolam [Xanax] 0.5 mg PO BID@1200,2100 06/16/22 06/16/22 History Acetaminophen [Tylenol Arthritis] 650 mg PO Q4H PRN 06/16/22 06/16/22 History HYDROcodone/APAP 7.5-325MG [[place] 1 tab PO BID PRN 06/16/22 06/16/22 History 7.5-325] Ipratropium-Albuterol Nebulize 3 ml INHALATION RT-QID PRN 06/16/22 06/16/22 History [Duoneb 0.5 mg-3 mg/3 ml Soln] risperiDONE [RisperDAL] 0.5 mg PO HS@2100 06/16/22 06/16/22 History risperiDONE [RisperDAL] 1 mg PO HS@2100 06/16/22 06/16/22 History Allergies Allergy/AdvReac Type Severity Reaction Status Date / Time prochlorperazine Allergy Itching Verified 06/16/22 11:09 [From Compazine] Sulfa (Sulfonamide Allergy Unknown Verified 06/16/22 11:09 Antibiotics) codeine AdvReac Unknown Verified 06/16/22 11:09 Physical Exam Vitals: Vital Signs Temp Pulse Pulse Resp BP BP Pulse Ox 06/17/22 08:13 70 96 06/17/22 08:00 97.8 F 62 16 138/69 98 06/17/22 01:33 97.4 F L 68 16 105/58 100 06/16/22 20:41 72 16 06/16/22 20:25 74 16 97 06/16/22 20:00 97.5 F L 75 16 133/78 99 06/16/22 19:43 15 06/16/22 18:00 82 18 112/70 98 06/16/22 17:00 67 18 110/68 97 06/16/22 14:00 74 18 108/78 98 06/16/22 12:39 65 20 107/76 98 Intake and Output 06/16/22 06/17/22 06/17/22 22:59 06:59 14:59 Output Total 1400 Balance -1400 Output: Urine 1400 Results CBC & Chem 7: 06/17/22 07:19 06/17/22 07:19 Labs: Abnormal Lab Results - Last 24 Hours (Table) 06/16/22 06/16/22 06/17/22 Range/Units 08:41 21:35 09:25 POC Glucose (mg/dL) 154 H 336 H (70-110) mg/dL Procalcitonin 0.37 H (0.02-0.09) ng/mL Microbiology - Last 24 Hours (Table) 06/16/22 09:06 Blood Culture - Final Blood 06/16/22 09:06 Blood Culture - Final Blood Assessment and Plan Plan: 1patient with a positive blood culture with gram-positive cocci in this patient presented to hospital with pneumonia with a question of possible strep pneumo/MRSA however if finalized as staph epi will be disregarded as possible contamination. 2 Blood culture has been repeated document clearance of bacteremia. 3sputum cultures will be followed 4-continue with Rocephin and add vancomycin while waiting for ID of this gram- positive cocci in the blood We will follow on clinical condition and cultures to further adjust medication if needed Thank you for this consultation will follow this patient along with you Time with Patient: Greater than 30
[2022-06-17] MEDS: ACETAMINOPHEN TAB 325 MG TAB PO PRN (21:38)
[2022-06-18] MEDS ORDERED: VANCOMYCIN 1,750 MG in SODIUM CHLORIDE 0.9% 500 ML 500 ML IVPB SCH ×2
[2022-06-18] MEDS: HEPARIN SODIUM,PORCINE/PF 5,000 UNIT/0.5 ML SYRINGE SQ SCH ×4 (00:12→23:27)
[2022-06-18] MEDS: BUDESONIDE 0.5 MG/2 ML NEBU INHALATION SCH ×2 (07:51→19:09)
[2022-06-18 08:04] LABS: African American GFR (CKD) >90 (>60 ml/min/1.73 sqM); Non-African American GFR(CKD) >90 (>60 ml/min/1.73 sqM)
[2022-06-18] MEDS: CEVIMELINE 30 MG CAP PO SCH ×3 (09:09→18:08)
[2022-06-18 09:10] LABS: Glucose,Whole Blood 173 mg/dL (70-110)
[2022-06-18] MEDS: AZITHROMYCIN 500 MG TAB PO SCH (09:10)
[2022-06-18] MEDS: DULoxetine HCL 30 MG CAPSULE.DR PO SCH (09:10)
[2022-06-18] MEDS: ARTIFICIAL TEARS-HYPROMELLOSE DROPS 15 ML BTL BOTH EYES SCH ×2 (09:11→17:05)
[2022-06-18] MEDS: FLUTICASONE 50MCG/SPRAY NASAL 16GM EA NOSTRIL SCH ×2 (09:11→17:05)
[2022-06-18] MEDS: LEVOTHYROXINE 75 MCG TAB PO SCH (09:11)
[2022-06-18] MEDS: INSULIN ASPART (NovoLOG) 100 UNIT/ML VIAL SQ SCH ×3 (09:18→17:04)
[2022-06-18 12:31] LABS: Glucose,Whole Blood 139 mg/dL (70-110)
[2022-06-18 17:00] LABS: Glucose,Whole Blood 567 mg/dL (70-110)
[2022-06-18] MEDS: MONTELUKAST 10 MG TAB PO SCH (17:05)
[2022-06-18] MEDS: PREGABALIN 75 MG CAP PO SCH (17:05)
[2022-06-18] MEDS ORDERED: INSULIN ASPART (NovoLOG) 100 UNIT/ML VIAL SQ ONE (17:30)
[2022-06-18 18:09] LABS: Glucose,Whole Blood 167 mg/dL (70-110)
[2022-06-18] MEDS: PRAVASTATIN SODIUM 80 MG TAB PO SCH (19:53)
[2022-06-18] MEDS: risperiDONE 1 MG TAB PO SCH (19:54)
[2022-06-18] MEDS: INSULIN DETEMIR (LEVEMIR) 100 UNIT/ML SYR SQ SCH (20:48)
[2022-06-19 06:36] LABS: African American GFR (CKD) >90 (>60 ml/min/1.73 sqM); Non-African American GFR(CKD) >90 (>60 ml/min/1.73 sqM)
--- NOTE | 2022-06-19 08:00 | P.PN ---
Subjective Progress Note Date: 06/18/22 Principal diagnosis: Pneumonia and positive blood culture Patient is a 71-year-old female [place] [facility] resident with multiple, currently brought to Hospital mental status changes low-grade fever with a retrocardiac infiltrate concerning for pneumonia patient did have a positive blood culture. On today's evaluation that is 06/18/2022, the patient is afebrile the patient is breathing comfortably on room air, but denies having any chest pain she did have a cough not bringing up any sputum no abdominal pain or diarrhea Objective - Vital Signs Vital signs: Vital Signs Temp 97 F L 06/18/22 14:00 Pulse 96 06/18/22 14:00 Resp 18 06/18/22 14:00 BP 126/74 06/18/22 14:00 Pulse Ox 99 06/18/22 14:00 FiO2 Intake & Output 06/17/22 06/18/22 06/18/22 18:59 06:59 18:59 Intake Total 600 Output Total 2101 1002 Balance -1501 -1002 Intake: IV 600 Vancomycin 1,750 mg In 500 Sodium Chloride 0.9% 500 ml 500 ml @ 167 mls/hr IVPB ONCE ONE Rx#: [id number] cefTRIAXone 2 gm In 100 Sodium Chloride 0.9% 50 ml @ 100 mls/hr IVPB Q24HR DENISSE Rx#:[id number] Output: Urine 2100 1000 Stool 1 2 Other: Voiding Method Incontinent Incontinent - Exam GENERAL DESCRIPTION: An elderly female lying in bed in no distress RESPIRATORY SYSTEM: Unlabored breathing , decreased breath sounds at bases HEART: S1 S2 regular rate and rhythm , ABDOMEN: Soft , no tenderness EXTREMITIES: No edema feet - Labs CBC & Chem 7: 06/17/22 07:19 06/19/22 05:35 Labs: Abnormal Lab Results - Last 24 Hours (Table) 06/17/22 06/17/22 06/18/22 Range/Units 12:03 20:35 09:09 POC Glucose (mg/dL) 145 H 173 H (70-110) mg/dL Procalcitonin 0.22 H (0.02-0.09) ng/mL 06/18/22 Range/Units 12:29 POC Glucose (mg/dL) 139 H (70-110) mg/dL Procalcitonin (0.02-0.09) ng/mL Microbiology - Last 24 Hours (Table) 06/17/22 12:03 Blood Culture - Preliminary Blood No Growth after 24 hours 06/16/22 09:06 Blood Culture Gram Stain - Final Blood Blood Culture - Final Coagulase Negative Staph 06/16/22 09:06 Blood Culture Gram Stain - Final Blood Blood Culture - Final Staphylococcus epidermidis Coagulase Negative Staph 06/17/22 08:25 Gram Stain - Preliminary Sputum Sputum Culture - Preliminary Assessment and Plan (1) Pneumonia Current Visit: Yes Status: Acute Code(s): J18.9 - PNEUMONIA, UNSPECIFIED ORGANISM SNOMED Code(s): 196239469 Plan: 1patient with a positive blood culture with gram-positive cocci in this patient presented to hospital with pneumonia with a question of possible strep pneumo/MRSA however the blood culture has been finalized as staph epi and likely contamination. We will discontinue the vancomycin. Blood culture negative so far 2 patient to continue with Rocephin and Zithromax while waiting for the cu ltures to finalize Time with Patient: Less than 30
[2022-06-19] MEDS: INSULIN ASPART (NovoLOG) 100 UNIT/ML VIAL SQ SCH ×3 (08:19→16:58)
[2022-06-19] MEDS: HEPARIN SODIUM,PORCINE/PF 5,000 UNIT/0.5 ML SYRINGE SQ SCH ×2 (08:20→16:54)
[2022-06-19] MEDS: DULoxetine HCL 30 MG CAPSULE.DR PO SCH (08:20)
[2022-06-19] MEDS: LEVOTHYROXINE 75 MCG TAB PO SCH (08:20)
[2022-06-19] MEDS: ARTIFICIAL TEARS-HYPROMELLOSE DROPS 15 ML BTL BOTH EYES SCH ×2 (08:21→16:55)
[2022-06-19] MEDS: FLUTICASONE 50MCG/SPRAY NASAL 16GM EA NOSTRIL SCH ×2 (08:21→16:55)
[2022-06-19] MEDS: BUDESONIDE 0.5 MG/2 ML NEBU INHALATION SCH ×2 (08:39→19:18)
[2022-06-19] MEDS: IPRATROPIUM-ALBUTEROL 3 ML NEB INHALATION PRN ×2 (08:39→12:02)
[2022-06-19] MEDS: AZITHROMYCIN 250 MG TAB PO SCH (10:46)
[2022-06-19] MEDS: CEVIMELINE 30 MG CAP PO SCH ×3 (10:46→16:55)
--- NOTE | 2022-06-19 14:29 | P.PN ---
Subjective Progress Note Date: 06/19/22 Patient is a 71-year-old female with a known history of dementia, hypertension, hyperlipidemia, fibromyalgia, memory impairment, osteoarthritis, hypothyroidism, diabetes type 2 and peripheral neuropathy [place]o diarrhea, migraine headache and other multiple medical problems including previous history of smoking who is currently at extended[facility]care facility[facility] was brought to the hospital due to altered mental status. Patient has been more confused and lethargic. Easily irritated x1-2. At baseline patient has been having low-grade fever at [facility] and decided to send her to the hospital. Patient is unable to provide any history at this time. Chest x-ray showed clinical consideration for a retrocardiac infiltrate is recommended. Consider atelectasis and pneumonia. Follow-up is recommended. EKG showed sinus rhythm with first-degree AV block. On admission blood pressure is 122/60 pulse 66 respirations 16 pulse ox 96% on room air. Laboratory test showed WBC 14.0 hemoglobin 13.9 and platelets 245 Sodium 137 potassium 4.4 chloride 102 bicarb is 26 BUN 12 and creatinine 0.53 and blood sugar is 134 Liver enzymes are not elevated. UA negative for infection. Coronavirus PCR not detected. 06/19/2022 Patient is seen and evaluated and follow-up continues to be confused although appears to be at her baseline. Patient resides at a [facility] and will discuss with case management/also work about discharge planning. Infectious disease is following and patient is maintained on IV antibiotics in the form of ceftriaxone along with oral Zithromax while awaiting finalized cultures. Most recent repeat cultures of blood have been negative for 48 hours. Sputum culture showing some normal respiratory irving. Patient is afebrile and vital signs are stable. Recommend continue monitoring Accu-Cheks before meals and at bedtime and continue with sliding scale along with pre-meal and long acting. Review of systems: Unable to fully obtain as patient is confused Active Medications Acetaminophen (Acetaminophen Tab 325 Mg Tab) 650 mg PO Q4H PRN PRN Reason: GENERAL DISCOMFORT Last Admin: 06/17/22 21:38 Dose: 650 mg Acetaminophen/Butalbital/Caffeine (Butalb/Apap/Caff 50-325-40mg Tab) 2 each PO Q4H PRN PRN Reason: Migraine Headache Albuterol/Ipratropium (Ipratropium-Albuterol 3 Ml Neb) 3 ml INHALATION RT-QID PRN PRN Reason: Shortness Of Breath Last Admin: 06/19/22 12:02 Dose: 3 ml Artificial Tears (Artificial Tears-Hypromellose Drops 15 Ml Btl) 1 drops BOTH EYES BID@0800,1700 [facility] Last Admin: 06/19/22 08:21 Dose: 1 drops Azithromycin (Azithromycin 250 Mg Tab) 250 mg PO DAILY [facility]; Protocol Stop: 06/21/22 09:01 Last Admin: 06/19/22 10:46 Dose: 250 mg Bisacodyl (Bisacodyl 10 Mg Supp) 10 mg RECTAL Q24H PRN PRN Reason: Constipation Budesonide (Budesonide 0.5 Mg/2 Ml Nebu) 0.5 mg INHALATION RT-BID@0800,1700 [facility] Last Admin: 06/19/22 08:39 Dose: 0.5 mg Cevimeline HCl (Cevimeline 30 Mg Cap) 30 mg PO TID@0800,1200,1700 [facility] Last Admin: 06/19/22 13:19 Dose: 30 mg Duloxetine HCl (Duloxetine Hcl 30 Mg Capsule.Dr) 30 mg PO DAILY@0800 [facility] Last Admin: 06/19/22 08:20 Dose: 30 mg Fluticasone Propionate (Fluticasone 50mcg/[place] Nasal 16gm) 1 spray EA NOSTRIL BID@0800,1700 [facility] Last Admin: 06/19/22 08:21 Dose: 1 spray Heparin Sodium (Porcine) (Heparin Sodium,Porcine/Pf 5,000 Unit/0.5 Ml Syringe) 5,000 unit SQ Q8HR [facility] Last Admin: 06/19/22 08:20 Dose: 5,000 unit Ceftriaxone Sodium 2 gm/ (Sodium Chloride) 50 mls @ 100 mls/hr IVPB Q24HR [facility]; Protocol Stop: 06/20/22 09:29 Last Admin: 06/19/22 08:19 Dose: 100 mls/hr Insulin Aspart (Insulin Aspart (Novolog) 100 Unit/Ml Vial) 7 unit SQ DAILY@1100 [facility] Last Admin: 06/19/22 12:32 Dose: 7 unit Insulin Aspart (Insulin Aspart (Novolog) 100 Unit/Ml Vial) 9 unit SQ BID@0700,1700 [facility] Last Admin: 06/19/22 08:19 Dose: 9 unit Insulin Detemir (Insulin Detemir (Levemir) 100 Unit/Ml Syr) 17 unit SQ HS@2130 [facility] Last Admin: 06/18/22 20:48 Dose: 17 unit Levothyroxine Sodium (Levothyroxine 75 Mcg Tab) 75 mcg PO DAILY@0800 [facility] Last Admin: 06/19/22 08:20 Dose: 75 mcg Miscellaneous Information (Pneumonia Protocol Utilized 1 Each Misc) 1 each PO ONCE PRN PRN Reason: Per Protocol Montelukast Sodium (Montelukast 10 Mg Tab) 10 mg PO DAILY@1700 [facility] Last Admin: 06/18/22 17:05 Dose: 10 mg Pravastatin Sodium (Pravastatin Sodium 80 Mg Tab) 80 mg PO HS@2100 [facility] Last Admin: 06/18/22 19:53 Dose: 80 mg Pregabalin (Pregabalin 75 Mg Cap) 150 mg PO DAILY@1700 [facility] Last Admin: 06/18/22 17:05 Dose: 150 mg Risperidone (Risperidone 1 Mg Tab) 1 mg PO HS@2100 [facility] Last Admin: 06/18/22 19:54 Dose: 1 mg Sodium Biphosphate/Sodium Phosphate (Na Phos,M-B/Na Phos,Di-Ba 133 Ml Enema) 133 ml RECTAL Q24H PRN PRN Reason: Constipation PHYSICAL EXAMINATION: Patient is lying in the bed comfortably, no acute distress, awake but not oriented. Appears to be at her baseline HEENT: Normocephalic. Neck is supple. Pupils reactive. Nostrils clear. Oral cavity is moist. Neck reveals no JVD, carotid bruits, or thyromegaly. CHEST EXAMINATION: Trachea is central. Symmetrical expansion. Left basilar crackles. No wheezing. Nonlabored breathing.. CARDIAC: Normal S1, S2 with no gallops. No murmurs ABDOMEN: Soft. Bowel sounds present. Nontender. No organomegaly. No abdominal bruits. Extremities: Bilateral trace edema. No clubbing or cyanosis Neurologically awake, alert, but not oriented. No gross focal deficits noted Skin: No rash or skin lesions. Psychiatric: Could not be assessed at this time. Cooperative, somewhat anxious Musculoskeletal: No joint swelling or deformity. Assessment: Altered mental status possible metabolic encephalopathy due to infection, improving Pneumonia with retrocardiac infiltrate Dementia Hypertension Diabetes type 2 insulin-dependent, uncontrolled with hyperglycemia Bilateral diabetic peripheral neuropathy patient is bedridden Chronic pain Occipital neuralgia Migraine headaches Hypothyroidism Previous history of smoking DVT prophylax with heparin subcu No code Plan: Patient will be continued on antibiotics in the form of IV ceftriaxone and oral azithromycin. Mentation is improving and appears to be baseline. Infectious disease is following and most recent blood cultures have been negative and sputum culture showing normal respiratory irving and will discuss with infectious disease about discharge planning Recommend to continue with aspiration precautions and head of the bed elevated at 30-45 at all times and also patient is maintained on dysphagia 2 diet and recommend meals with supervision Blood sugars have been elevated and recommend continue with Accu-Cheks before meals and at bedtime and also continue with pre-meal insulin and long-acting Recommend repeat labs in the a.m. Due to multiple complex medical issues, prognosis is guarded Possible discharge in 24-48 hours. The impression and plan of care has been dictated by Nurse Jose Mcneal as directed. Dr. Carolyne MD I have performed a history and examination and MDM of this patient, discussed the same with the dictator, and agree with the dictator's assessment and plan as written ,documented as a scribe. Based on total visit time, I have performed more than 50% of the visit. Objective - Vital Signs Vital signs: Vital Signs Temp 98.2 F 06/19/22 08:00 Pulse 84 06/19/22 08:49 Resp 16 06/19/22 08:00 BP 127/79 06/19/22 08:00 Pulse Ox 98 06/19/22 08:00 FiO2 Intake & Output 06/18/22 06/19/22 06/19/22 18:59 06:59 18:59 Intake Total 50 120 Output Total 950 Balance -900 120 Intake: IV 50 cefTRIAXone 2 gm In 50 Sodium Chloride 0.9% 50 ml @ 100 mls/hr IVPB Q24HR [facility] Rx#:[id number] Oral 120 Output: Urine 950 Other: Voiding Method Incontinent Incontinent # Voids 5 1 # Bowel Movements 1 - Labs CBC & Chem 7: 06/17/22 07:19 06/19/22 05:35 Labs: Abnormal Lab Results - Last 24 Hours (Table) 06/18/22 06/18/22 06/18/22 Range/Units 12:29 16:59 18:07 POC Glucose (mg/dL) 139 H 567 H 167 H (70-110) mg/dL Microbiology - Last 24 Hours (Table) 06/17/22 12:03 Blood Culture - Preliminary Blood No Growth after 24 hours 06/16/22 09:06 Blood Culture Gram Stain - Final Blood Blood Culture - Final Coagulase Negative Staph 06/16/22 09:06 Blood Culture Gram Stain - Final Blood Blood Culture - Final Staphylococcus epidermidis Coagulase Negative Staph
[2022-06-19] MEDS: MONTELUKAST 10 MG TAB PO SCH (16:55)
[2022-06-19] MEDS: PREGABALIN 75 MG CAP PO SCH (16:55)
[2022-06-19 16:59] LABS: Glucose,Whole Blood 139 mg/dL (70-110)
[2022-06-19] MEDS: PRAVASTATIN SODIUM 80 MG TAB PO SCH (20:48)
[2022-06-19] MEDS: risperiDONE 1 MG TAB PO SCH (20:48)
[2022-06-19] MEDS: INSULIN DETEMIR (LEVEMIR) 100 UNIT/ML SYR SQ SCH (20:48)
[2022-06-20] MEDS: HEPARIN SODIUM,PORCINE/PF 5,000 UNIT/0.5 ML SYRINGE SQ SCH ×3 (00:22→16:55)
[2022-06-20 07:05] LABS: Glucose,Whole Blood 103 mg/dL (70-110)
[2022-06-20] MEDS: CEVIMELINE 30 MG CAP PO SCH ×3 (07:38→16:55)
[2022-06-20] MEDS: LEVOTHYROXINE 75 MCG TAB PO SCH (07:38)
[2022-06-20] MEDS: INSULIN ASPART (NovoLOG) 100 UNIT/ML VIAL SQ SCH ×3 (07:38→17:04)
[2022-06-20] MEDS: FLUTICASONE 50MCG/SPRAY NASAL 16GM EA NOSTRIL SCH ×2 (07:39→16:55)
[2022-06-20] MEDS: DULoxetine HCL 30 MG CAPSULE.DR PO SCH (07:39)
[2022-06-20] MEDS: ARTIFICIAL TEARS-HYPROMELLOSE DROPS 15 ML BTL BOTH EYES SCH ×2 (07:39→16:54)
[2022-06-20 07:54] VITALS: RESP 17
--- NOTE | 2022-06-20 08:04 | P.PN ---
Subjective Progress Note Date: 06/19/22 Principal diagnosis: Pneumonia and positive blood culture Patient is a 71-year-old female shelter resident with multiple, currently brought to Hospital mental status changes low-grade fever with a retrocardiac infiltrate concerning for pneumonia patient did have a positive blood culture. On today's evaluation that is 06/19/2022, the patient remains to be afebrile, the patient is breathing comfortably on room air, the patient denies having any chest pain she did have a cough not bringing up any sputum no abdominal pain or diarrhea Objective - Vital Signs Vital signs: Vital Signs Temp 98.2 F 06/19/22 08:00 Pulse 84 06/19/22 08:49 Resp 16 06/19/22 08:00 BP 127/79 06/19/22 08:00 Pulse Ox 98 06/19/22 08:00 FiO2 Intake & Output 06/18/22 06/19/22 06/19/22 18:59 06:59 18:59 Intake Total 50 120 Output Total 950 Balance -900 120 Intake: IV 50 cefTRIAXone 2 gm In 50 Sodium Chloride 0.9% 50 ml @ 100 mls/hr IVPB Q24HR [facility] Rx#:[id number] Oral 120 Output: Urine 950 Other: Voiding Method Incontinent Incontinent # Voids 5 1 # Bowel Movements 1 - Exam GENERAL DESCRIPTION: An elderly female lying in bed in no distress RESPIRATORY SYSTEM: Unlabored breathing , decreased breath sounds at bases HEART: S1 S2 regular rate and rhythm , ABDOMEN: Soft , no tenderness EXTREMITIES: No edema feet - Labs CBC & Chem 7: 06/17/22 07:19 06/19/22 05:35 Labs: Abnormal Lab Results - Last 24 Hours (Table) 06/18/22 06/18/22 06/18/22 Range/Units 12:29 16:59 18:07 POC Glucose (mg/dL) 139 H 567 H 167 H (70-110) mg/dL Microbiology - Last 24 Hours (Table) 06/17/22 12:03 Blood Culture - Preliminary Blood No Growth after 24 hours 06/16/22 09:06 Blood Culture Gram Stain - Final Blood Blood Culture - Final Coagulase Negative Staph 06/16/22 09:06 Blood Culture Gram Stain - Final Blood Blood Culture - Final Staphylococcus epidermidis Coagulase Negative Staph Assessment and Plan (1) Pneumonia Current Visit: Yes Status: Acute Code(s): J18.9 - PNEUMONIA, UNSPECIFIED ORGANISM SNOMED Code(s): 522967838 Plan: 1patient with a positive blood culture with gram-positive cocci in this patient presented to hospital with pneumonia with a question of possible strep pneumo/MRSA however the blood culture has been finalized as staph epi and likely contamination. No need for vancomycin. Repeat Blood culture negative so far 2 patient seemed to have shown some clinical improvement and well continue with Rocephin and Zithromax while waiting for the cultures to finalize Time with Patient: Less than 30
[2022-06-20] MEDS: BUDESONIDE 0.5 MG/2 ML NEBU INHALATION SCH (08:31)
[2022-06-20] MEDS: AZITHROMYCIN 250 MG TAB PO SCH (09:31)
[2022-06-20] MEDS: IPRATROPIUM-ALBUTEROL 3 ML NEB INHALATION PRN (10:48)
[2022-06-20 11:17] LABS: Glucose,Whole Blood 99 mg/dL (70-110)
[2022-06-20 14:05] VITALS: BP 104/63; PULSE 95; TEMP 98.1
[2022-06-20] MEDS ORDERED: FUROSEMIDE 40 MG TAB PO STA (14:12)
--- NOTE | 2022-06-20 14:13 | P.DS ---
Providers Date of admission: 06/16/22 10:52 Expected date of discharge: 06/20/22 Attending physician: Mike Barfield Consults: 06/17/22 10:23 Consult Physician Stat Consulting Provider: Michael Mcrae Consult Reason/Comments: Positive blood culture Do you want consulting provider notified?: Yes Primary care physician: Robert Amador [facility] Course: Final diagnosis Altered mental status possible metabolic encephalopathy due to infection, improved Pneumonia with retrocardiac infiltrate, present on admission versus atelectasis Dementia Hypertension Diabetes type 2 insulin-dependent, uncontrolled with hyperglycemia Bilateral diabetic peripheral neuropathy patient is bedridden Chronic pain Occipital neuralgia Migraine headaches Hypothyroidism Previous history of smoking DVT prophylaxis No code Discharge disposition Patient is being discharged in a stable condition with guarded prognosis to [facility]. Patient will follow-up with Dr. Amador in the outpatient setting upon discharge. Patient is to continue with oral Ceftin 500 mg twice daily for the next 1 week and then may discontinue. Recommend repeat labs of CBC and BMP in the next 2-3 days. Total time taken is greater than 35 minutes. Hospital course This is a 71-year-old female who was recently admitted with altered mental status and was being closely monitored. Patient was lethargic and confused. Patient had been having intermittent low-grade temps at the fdc facility [facility] and sent here for further evaluation. They were concerned for initially a possible infiltrate versus atelectasis noted on x-ray. Patient did have a mildly elevated white blood count of 14 and blood cultures were found to be initially positive although found to be coag negative staph most likely contaminant. Sputum culture shows normal respiratory irving and most recent cultures have been negative for 48 hours. Patient was continued on IV ceftriaxone and mentation has improved and patient remains afebrile. Patient will continue on oral Ceftin 500 mg twice daily for the next 7 days to complete the course. Patient was evaluated and followed closely by infectious disease with these recommendations. Currently no reports of chest pain, shortness of breath, or palpitations. Patient is afebrile. No reports of nausea or vomiting and patient is tolerating diet. Patient will be going to [facility] today. Physical exam: Gen: This is a 71-year-old female awake, alert and oriented 1-2, appears to be baseline, obese with a BMI of 39.1, well-developed, well-nourished, mostly bedbound HEENT: Head is atraumatic, normocephalic. Pupils equal, round. Sclerae is anicteric. NECK: Supple. No JVD. No lymphadenopathy. No thyromegaly. LUNGS: Diminished breath sounds bilaterally with no wheezing and some mild scattered rhonchi noted. No intercostal retractions. HEART: S1, S2 are muffled ABDOMEN: Soft. Bowel sounds are present. No masses. No tenderness. EXTREMITIES: No pedal edema. No calf tenderness. NEUROLOGICAL: Patient is awake, alert and oriented x1-2. Diffusely weak Please refer to medication reconciliation sheet for a list of medications. The impression and plan of care has been dictated by Katerina Rios, Nurse Practitioner as directed. Dr. Carolyne MD I have performed a history and examination and MDM of this patient, discussed the same with the dictator, and agree with the dictator's assessment and plan as written ,documented as a scribe. Based on total visit time, I have performed more than 50% of the visit. Patient Condition at Discharge: Fair Plan - Discharge Summary Discharge Rx Participant: No New Discharge Prescriptions: New cefUROXime axetiL [Ceftin] 500 mg PO BID 7 Days #14 tab Continue Montelukast [Singulair] 10 mg PO DAILY@1700 Cevimeline [Evoxac] 30 mg PO TID@0800,1200,1700 Levothyroxine Sodium [Synthroid] 75 mcg PO DAILY@0800 Pravastatin Sodium [Pravachol] 80 mg PO HS@2100 Naldemedine Tosylate [Symproic] 0.2 mg PO DAILY@0800 Fluticasone Nasal [place] [Flonase Nasal [place]] 1 spray EA NOSTRIL BID@0800,1700 Ibuprofen [Motrin] 400 mg PO Q4HR PRN tab PRN Reason: Pain Na Phos,M-B/Na Phos,Di-Ba [Fleet Adult] 1 dose RECTAL Q24H PRN PRN Reason: Constipation guaiFENesin [Diabetic Tussin Ex] 10 ml PO Q4H PRN PRN Reason: Cough bisacodyL [Dulcolax] 10 mg RECTAL Q24H PRN PRN Reason: Constipation DULoxetine HCL [Cymbalta] 30 mg PO DAILY@0800 Menthol [Biofreeze] 1 applic TOPICAL Q12H PRN PRN Reason: muscle discomfort Magnesium Hydroxide [Milk of Magnesia Concentrate] 7,200 mg PO DAILY PRN PRN Reason: Constipation Ipratropium-Albuterol Nebulize [Duoneb 0.5 mg-3 mg/3 ml Soln] 3 ml INHALATION RT-TID@08,12,20 Furosemide [Lasix] 40 mg PO DAILY@0800 Insulin Glargine [Lantus Vial] 17 unit SQ HS@2130 INSULIN LISPRO (humaLOG) [humaLOG] 9 unit SQ BID@0700,1700 INSULIN LISPRO (humaLOG) [humaLOG] 7 unit SQ DAILY@1100 Mag Hydrox/Al Hydrox/Simeth [Maalox] 15 ml PO Q6H PRN PRN Reason: Gi Upset Polyvinyl Alcohol/Povidone [[place] Eye Drop] 1 drop BOTH EYES BID@0800,1700 Potassium Chloride [Klor-Con 10 ER] 10 meq PO DAILY@0800 Sennosides [Senna] 17.2 mg PO BID@0800,1700 Budesonide [Pulmicort] 0.5 mg INHALATION RT-BID@0800,1700 Albuterol Inhaler [Ventolin Hfa Inhaler] 2 puff INHALATION RT-QID PRN puff PRN Reason: Shortness Of Breath Or Wheezing risperiDONE [RisperDAL] 1 mg PO HS@2100 risperiDONE [RisperDAL] 0.5 mg PO HS@2100 Acetaminophen [Tylenol Arthritis] 650 mg PO Q4H PRN PRN Reason: GENERAL DISCOMFORT Ipratropium-Albuterol Nebulize [Duoneb 0.5 mg-3 mg/3 ml Soln] 3 ml INHALATION RT-QID PRN PRN Reason: Shortness Of Breath Butalb/Acetaminophen/Caffeine [Fioricet 50-325-40] 2 tab PO Q4H PRN #4 tablet PRN Reason: Migraine Headache Pregabalin [Lyrica] 150 mg PO DAILY@1700 #3 cap HYDROcodone/APAP 7.5-325MG [Bard 7.5-325] 1 tab PO BID PRN #4 tab PRN Reason: Pain Discontinued amLODIPine [Norvasc] 5 mg PO BID@0800,1700 ALPRAZolam [Xanax] 0.5 mg PO BID@1200,2100 Discharge Medication List Cevimeline [Evoxac] 30 mg PO TID@0800,1200,1700 03/06/18 [History] Levothyroxine Sodium [Synthroid] 75 mcg PO DAILY@0800 03/06/18 [History] Montelukast [Singulair] 10 mg PO DAILY@1700 03/06/18 [History] Pravastatin Sodium [Pravachol] 80 mg PO HS@209903/06/18 [History] Fluticasone Nasal [place] [Flonase Nasal [place]] 1 spray EA NOSTRIL BID@0800,1700 09/25/18 [History] Naldemedine Tosylate [Symproic] 0.2 mg PO DAILY@0800 09/25/18 [History] Ibuprofen [Motrin] 400 mg PO Q4HR PRN tab 09/30/18 [Rx] Na Phos,M-B/Na Phos,Di-Ba [Fleet Adult] 1 dose RECTAL Q24H PRN 10/15/18 [History] Budesonide [Pulmicort] 0.5 mg INHALATION RT-BID@0800,1700 10/21/20 [History] DULoxetine HCL [Cymbalta] 30 mg PO DAILY@0800 10/21/20 [History] Furosemide [Lasix] 40 mg PO DAILY@0800 10/21/20 [History] INSULIN LISPRO (humaLOG) [humaLOG] 7 unit SQ DAILY@1100 10/21/20 [History] INSULIN LISPRO (humaLOG) [humaLOG] 9 unit SQ BID@0700,1700 10/21/20 [History] Insulin Glargine [Lantus Vial] 17 unit SQ HS@21310/21/20 [History] Ipratropium-Albuterol Nebulize [Duoneb 0.5 mg-3 mg/3 ml Soln] 3 ml INHALATION RT-TID@08,,10/21/20 [History] Mag Hydrox/Al Hydrox/Simeth [Maalox] 15 ml PO Q6H PRN 10/21/20 [History] Magnesium Hydroxide [Milk of Magnesia Concentrate] 7,200 mg PO DAILY PRN 10/21/20 [History] Menthol [Biofreeze] 1 applic TOPICAL Q12H PRN 12/17/20 [History] Polyvinyl Alcohol/Povidone [[place] Eye Drop] 1 drop BOTH EYES BID@0800,1700 10/21/20 [History] Potassium Chloride [Klor-Con 10 ER] 10 meq PO DAILY@0800 10/21/20 [History] Sennosides [Senna] 17.2 mg PO BID@0800,1700 10/21/20 [History] bisacodyL [Dulcolax] 10 mg RECTAL Q24H PRN 10/21/20 [History] guaiFENesin [Diabetic Tussin Ex] 10 ml PO Q4H PRN 10/21/20 [History] Albuterol Inhaler [Ventolin Hfa Inhaler] 2 puff INHALATION RT-QID PRN puff 10/26/20 [Rx] Acetaminophen [Tylenol Arthritis] 650 mg PO Q4H PRN 06/16/22 [History] Ipratropium-Albuterol Nebulize [Duoneb 0.5 mg-3 mg/3 ml Soln] 3 ml INHALATION RT-QID PRN 06/16/22 [History] risperiDONE [RisperDAL] 0.5 mg PO HS@2100 06/16/22 [History] risperiDONE [RisperDAL] 1 mg PO HS@2100 06/16/22 [History] Butalb/Acetaminophen/Caffeine [Fioricet 50-325-40] 2 tab PO Q4H PRN #4 tablet 06/20/22 [Rx] HYDROcodone/APAP 7.5-325MG [Bard 7.5-325] 1 tab PO BID PRN #4 tab 06/20/22 [Rx] Pregabalin [Lyrica] 150 mg PO DAILY@1700 #3 cap 06/20/22 [Rx] cefUROXime axetiL [Ceftin] 500 mg PO BID 7 Days #14 tab 06/20/22 [Rx] Follow up Appointment(s)/Referral(s): Robert Amador MD [Primary Care Provider] - 1-2 days Ambulatory/Diagnostic Orders: Complete Blood Count w/diff [LAB.AMB] Time Frame: 3 Days, Location: None Selected Activity/Diet/Wound Care/Special Instructions: Patient is returning to [facility] as tolerated Recommend repeat CBC and BMP in 2-3 days Continue to hold Norvasc for now as blood pressures have been on the lower side and is continuing to elevate then recommend resuming Norvasc 5 mg twice a day Patient is to continue on oral Ceftin 500 mg twice daily for the next 1 week and then may discontinue Recommend consistent carb diet Recommend monitoring Accu-Cheks before meals and at bedtime and continue with insulin regimen Follow-up primary care provider on discharge Discharge Disposition: TRANSFER TO SNF/ECF
[2022-06-20] MEDS: ACETAMINOPHEN TAB 325 MG TAB PO PRN (14:54)
[2022-06-20 16:35] LABS: Glucose,Whole Blood 168 mg/dL (70-110)
[2022-06-20] MEDS: MONTELUKAST 10 MG TAB PO SCH (16:56)
[2022-06-20] MEDS: PREGABALIN 75 MG CAP PO SCH (16:56)
== END 2022-06-20 19:45 | DRG 193 ==
LOC: EC 08:09 → 4SSUR 10:52
PROVIDERS: ADMIT Internal Medicine; ATTEND Internal Medicine
DX: J18.9 Pneumonia, unspecified organism (principal); G93.41 Metabolic encephalopathy; J45.909 Unspecified asthma, uncomplicated; M35.00 Sjogren syndrome, unspecified; M54.81 Occipital neuralgia; M79.7 Fibromyalgia; N18.9 Chronic kidney disease, unspecified; Z74.01 Bed confinement status; I45.10 Unspecified right bundle-branch block; E03.9 Hypothyroidism, unspecified; E11.22 Type 2 diabetes mellitus with diabetic chronic kidney disease; E11.42 Type 2 diabetes mellitus with diabetic polyneuropathy; E11.65 Type 2 diabetes mellitus with hyperglycemia; E78.5 Hyperlipidemia, unspecified; F03.90 Unspecified dementia, unspecified severity, without behavioral disturbance, psychotic disturbance, mood disturbance, and anxiety; G43.909 Migraine, unspecified, not intractable, without status migrainosus; G89.29 Other chronic pain; R13.10 Dysphagia, unspecified; I12.9 Hypertensive chronic kidney disease with stage 1 through stage 4 chronic kidney disease, or unspecified chronic kidney disease; I44.0 Atrioventricular block, first degree; Z66 Do not resuscitate; Z20.822 Contact with and (suspected) exposure to COVID-19; Z79.4 Long term (current) use of insulin; Z79.890 Hormone replacement therapy; Z79.899 Other long term (current) drug therapy; Z80.8 Family history of malignant neoplasm of other organs or systems; Z86.16 Personal history of COVID-19; Z87.01 Personal history of pneumonia (recurrent); Z87.11 Personal history of peptic ulcer disease; Z87.891 Personal history of nicotine dependence; K57.90 Diverticulosis of intestine, part unspecified, without perforation or abscess without bleeding; Z88.5 Allergy status to narcotic agent; Z88.2 Allergy status to sulfonamides; Z87.440 Personal history of urinary (tract) infections
CPT/HCPCS: 36415; 71046; 80048; 80053; 81001; 82565; 82607; 82747; 83605; 84145; 84443; 85025; 86140; 87040; 87070; 87205; 87635; 93005; 94640; 94760; 96365; 96366; 96367; 96372; 99285

== ENCOUNTER 2024-03-06 18:36 | Emergency (ER) | payer MEDICARE, OTHER ==
[2024-03-06 19:11] VITALS: TEMP 98.3
--- NOTE | 2024-03-06 19:43 | ED ---
General Adult HPI - General Chief complaint: Weakness Stated complaint: Lethargice Time Seen by Provider: 03/06/24 18:42 Source: patient, EMS, RN notes reviewed, old records reviewed Mode of arrival: EMS Limitations: altered mental status - History of Present Illness Initial comments: 73-year-old female [facility] with cough congestion, and reported increased lethargy. Patient is at baseline according to her daughter who is at bedside. She is alert and talking. Daughter has no concerns. There was some reported congestion and mild cough. They had swabbed the patient for COVID and influenza. No reported fever. No vomiting. Patient is eating and drinking well. - Related Data Home Medications Medication Instructions Recorded Confirmed Cevimeline [Evoxac] 30 mg PO TID@0800,1200,1700 03/06/18 03/06/24 Levothyroxine Sodium [Synthroid] 75 mcg PO DAILY@0700 03/06/18 03/06/24 Montelukast [Singulair] 10 mg PO DAILY@1700 03/06/18 03/06/24 Pravastatin Sodium [Pravachol] 80 mg PO HS@2100 03/06/18 03/06/24 Fluticasone Nasal [place] [Flonase 1 spr EA NOSTRIL BID@0800,1700 09/25/18 0 03/06/24 Nasal [place]] Naldemedine Tosylate [Symproic] 0.2 mg PO DAILY@0800 09/25/18 03/06/24 Na Phos,M-B/Na Phos,Di-Ba [Fleet 133 ml RECTAL Q24H PRN 10/15/18 03/06/24 Adult] Budesonide [Pulmicort] 0.5 mg INHALATION RT-BID@0800,1700 10/21/20 03/06/24 DULoxetine HCL [Cymbalta] 30 mg PO DAILY@0800 10/21/20 03/06/24 Furosemide [Lasix] 40 mg PO DAILY@0800 10/21/20 03/06/24 INSULIN LISPRO (humaLOG) [humaLOG] 7 unit SQ DAILY@1100 10/21/20 03/06/24 INSULIN LISPRO (humaLOG) [humaLOG] 9 unit SQ BID@0700,1700 10/21/20 03/06/24 Insulin Glargine [Lantus Vial] 17 unit SQ HS@2130 10/21/20 03/06/24 Ipratropium-Albuterol Nebulize 3 ml INHALATION RT-TID 10/21/20 03/06/24 [Duoneb 0.5 mg-3 mg/3 ml Soln] Magnesium Hydroxide [Milk of 7,200 mg PO DIRECTED PRN 10/21/20 03/06/24 Magnesia Concentrate] Menthol [Biofreeze] 1 applic TOPICAL Q8H PRN 10/21/20 03/06/24 Polyvinyl Alcohol/Povidone 1 drop BOTH EYES BID@0800,1700 10/21/20 03/06/24 [[place] Eye Drop] bisacodyL [Dulcolax] 10 mg RECTAL Q24H PRN 10/21/20 03/06/24 guaiFENesin [Diabetic Tussin Ex] 200 mg PO Q4H PRN 10/21/20 03/06/24 Ipratropium-Albuterol Nebulize 3 ml INHALATION RT-QID PRN 06/16/22 03/06/24 [Duoneb 0.5 mg-3 mg/3 ml Soln] Acetaminophen Tab [Tylenol] 500 mg PO Q6H PRN 12/17/23 03/06/24 INSULIN LISPRO (HumaLOG) [humaLOG] See Protocol SQ ACHS 12/17/23 03/06/24 Nystatin 100,000 Unit/gm Powd 1 applic TOPICAL TID 12/17/23 03/06/24 [Mycostatin Powder] Carbidopa-Levodopa 25-100 mg 1 tab PO TID@0800,1200,1700 03/06/24 03/06/24 [Sinemet 25-100 mg] Cyanocobalamin [Vitamin B-12] 1,000 mcg PO DAILY@0800 03/06/24 03/06/24 Maalox Plus 15 ml PO Q6H PRN 03/06/24 03/06/24 Pregabalin [Lyrica] 75 mg PO DAILY@0800 03/06/24 03/06/24 risperiDONE [RisperDAL] 0.5 mg PO BID@0800,1700 03/06/24 03/06/24 Previous Rx's Medication Instructions Recorded Ibuprofen [Motrin] 400 mg PO Q4HR PRN tab 09/30/18 Albuterol Inhaler [Ventolin Hfa 2 puff INHALATION RT-QID PRN puff 10/26/20 Inhaler] Allergies Allergy/AdvReac Type Severity Reaction Status Date / Time prochlorperazine Allergy Itching Verified 03/06/24 18:42 [From Compazine] Sulfa (Sulfonamide Allergy Unknown Verified 03/06/24 18:42 Antibiotics) codeine AdvReac Unknown Verified 03/06/24 18:42 Review of Systems ROS Statement: Those systems with pertinent positive or pertinent negative responses have been documented in the HPI. ROS Other: All systems not noted in ROS Statement are negative. Past Medical History Past Medical History: Asthma, Dementia, Diabetes Mellitus, Fibromyalgia, GERD/Reflux, Hyperlipidemia, Hypertension, Memory Impairment, Neurologic Disorder, Osteoarthritis (OA), Pneumonia, Renal Disease, Thyroid Disorder Additional Past Medical History / Comment(s): IDDM type II, neuropathy bilateral feet, CKD, cystic kidneys, bilateral lower leg edema, chronic pain, occipital neuralgia, migraines, hiatal hernia, past gastric ulcers, diverticular disease, constipation, UTI, UTI with sepsis, covid pneumonia, hypothyroid, sjogren's, bowel obstruction as a child/past medical record but hayden could not recall, dysphagia. History of Any Multi-Drug Resistant Organisms: None Reported Past Surgical History: Appendectomy, Bladder Surgery, Bowel Resection, Cholecystectomy, Hysterectomy, Tonsillectomy, Tubal Ligation Additional Past Surgical History / Comment(s): Reveal monirot since removed, R wrist ORIF, pain procedure for occipital neuralgia, colonoscopy, sinus surgery. Past Anesthesia/Blood Transfusion Reactions: Motion Sickness, Postoperative Nausea & Vomiting (PONV) Past Psychological History: Anxiety, Depression Smoking Status: Former smoker - Past Family History Mother History Unknown: Yes Family Medical History: Cancer Additional Family Medical History / Comment(s): Hayden does not recall type of cancer. Father Family Medical History: Cancer Additional Family Medical History / Comment(s): Melanoma Daughter(s) Family Medical History: No Reported History General Exam Limitations: no limitations General appearance: alert, in no apparent distress Head exam: Present: atraumatic, normocephalic Eye exam: Present: normal appearance, PERRL ENT exam: Present: normal exam Neck exam: Present: normal inspection Respiratory exam: Present: normal lung sounds bilaterally. Absent: respiratory distress, wheezes, rhonchi Cardiovascular Exam: Present: regular rate, normal rhythm GI/Abdominal exam: Present: soft. Absent: distended, tenderness Extremities exam: Present: normal inspection Neurological exam: Present: alert. Absent: oriented X3, motor sensory deficit Psychiatric exam: Present: normal affect, normal mood Skin exam: Present: warm Course Vital Signs 03/06/24 03/06/24 18:38 20:45 Temperature 98.3 F Pulse Rate 71 79 Respiratory 18 16 Rate Blood Pressure 124/91 131/71 O2 Sat by Pulse 99 99 Oximetry Medical Decision Making - Medical Decision Making Was pt. sent in by a medical professional or institution (, [facility], RESERVE OPERATOR, urgent care, hospital, or [facility]...) When possible be specific @ -No Did you speak to anyone other than the patient for history (EMS, parent, family, police, friend...)? What history was obtained from this source @ -No Did you review nursing and triage notes (agree or disagree)? Why? @ -I reviewed and agree with nursing and triage notes Were old charts reviewed (outside hosp., previous admission, EMS record, old EKG, old radiological studies, urgent care reports/EKG's, [facility] records)? Report findings @ -No old charts were reviewed Differential Diagnosis differential Altered Mental Status: Hypoglycemia, DKA, hypercapnia, ETOH, overdose, CO poisoning, trauma, myxedema coma, HTN encephalopathy, infection, encephalitis, psychosis, intercranial hemorrhage, hepatic encephalopathy, meningitis, CVA, this is not meant to be an all-inclusive list EKG interpreted by me (3pts min.). @ -Sinus rhythm rate of 67, [place] interval 231, QRS duration 112, QTc [address] segment elevation. X-rays interpreted by me (1pt min.). @ -Chest x-ray negative for focal pneumonia, possible mild CHF CT interpreted by me (1pt min.). @ -None done U/S interpreted by me (1pt. min.). @ -None done What testing was considered but not performed or refused? (CT, X-rays, U/S, labs)? Why? @ -None What meds were considered but not given or refused? Why? @ -None Did you discuss the management of the patient with other professionals (professionals i.e. , PA, RESERVE OPERATOR, lab, RT, psych nurse, clinical social worker, supervisor [employer], teacher, air control/anti air warfare officer, case resource manager)? Give summary @ -No Was smoking cessation discussed for >3mins.? @ -No Was critical care preformed (if so, how long)? @ -No Were there social determinants of health that impacted care today? How? (Homelessness, low income, unemployed, alcoholism, drug addiction, transporta tion, low edu. Level, literacy, decrease access to med. care, [place] [facility], rehab)? @ -No Was there de-escalation of care discussed even if they declined (Discuss DNR or withdrawal of care, Hospice)? DNR status @ -No What co-morbidities impacted this encounter? (DM, HTN, Smoking, COPD, CAD, Cancer, CVA, ARF, Chemo, Hep., AIDS, mental health diagnosis, sleep apnea, morbid obesity)? @Multiple comorbidities Was patient admitted / discharged? Hospital course, mention meds given and route, prescriptions, significant lab abnormalities, going to OR and other pertinent info. @ -73-year-old female presenting with an episode of increased lethargy. Patient is at baseline currently according to her daughter. No complaints. Vital signs stable. Patient observed without change in mental status or vital signs. Stable for [facility] back to the [facility]. Undiagnosed new problem with uncertain prognosis? @ -No Drug Therapy requiring intensive monitoring for toxicity (Heparin, Nitro, Insulin, Cardizem)? @ -No Were any procedures done? @ -No Diagnosis/symptom? @ -[Cough Acute, or Chronic, or Acute on Chronic? @ -Acute Uncomplicated (without systemic symptoms) or Complicated (systemic symptoms)? @ -Default Side effects of treatment? @ -No Exacerbation, Progression, or Severe Exacerbation? @ -No Poses a threat to life or bodily function? How? (Chest pain, [place], [place], pneumonia, PE, COPD, DKA, ARF, appy, cholecystitis, CVA, Diverticulitis, Homicidal, Suicidal, threat to staff... and all critical care pts) @Low risk at this time Disposition Clinical Impression: Cough Disposition: HOME SELF-CARE Condition: Fair Instructions (If sedation given, give patient instructions): Acute Cough (ED) Is patient prescribed a controlled substance at d/c from ED?: No Referrals: None,Stated [REFERRING] - 1-2 days Time of Disposition: 20:37
--- NOTE | 2024-03-06 20:29 | XR ---
EXAMINATION TYPE: XR chest 1V portable DATE OF EXAM: 03/06/2024 COMPARISON: 12/21/2023 HISTORY: Cough TECHNIQUE: Single frontal view of the chest is obtained. FINDINGS: There is cardiomegaly and mild pulmonary vascular congestion. There is no pleural effusion or pneumothorax. There is no airspace consolidation. The osseous structures are intact IMPRESSION: Findings most consistent with mild CHF.
[2024-03-06 21:44] VITALS: BP 131/71; PULSE 79; RESP 16
== END 2024-03-06 21:23 | disposition home or self-care (01) ==
LOC: EC 18:36
DX: R05.9 Cough, unspecified (principal); I25.2 Old myocardial infarction; Z87.891 Personal history of nicotine dependence; Z88.5 Allergy status to narcotic agent; Z88.2 Allergy status to sulfonamides; Z88.8 Allergy status to other drugs, medicaments and biological substances
CPT/HCPCS: 71045; 99285